=== PATIENT | male | born 1955 | race Caucasian/White ===

== ENCOUNTER 2021-02-08 09:41 | Outpatient (CLI) | payer BC, MEDICARE, SELFPAY ==
--- NOTE | 2021-02-08 10:00 | ECHO_ITS ---
Patient Info Name: Stevie Albarado Age: 66 years : 1955 Gender: Male Ht: 72 in Wt: 234 lbs BSA: 2.35 m2 HR: 83 bpm BP: 182 / 97 mmHg Heart Rhythm: Sinus Rhythm Technical Quality: Fair Exam Date: 02/08/2021 9:56 AM Exam Location: [facility] Patient Status: Outpatient Admit Date: 02/08/2021 Staff Ordering Physician: Con Hugo MD Avid Editor: Gloria Ramos RDCS Attending Provider: Con Hugo MD Referring Physician: Oanh SAMUEL; Exam Type: CA echo dop color flow w con Study Info Indications I27.0 - Primary pulmonary hypertension Complete two-dimensional, color flow and Doppler transthoracic echocardiogram is performed with contrast to opacify the left ventricle and to improve the deliniation of the left ventricle endocardial borders. Strain analysis performed. Contrast/Agitated Saline Contrast/Ag. Saline: Definity Amount: 3.00 ml New IV Access: Antecubital Space and Left Site Condition: No extravasation, Site dressing applied and IV removed History/Risk Factors Hypertension: Yes Dyslipidemia: No Congenital Heart Disease (CHD): No Peripheral Arterial Disease (PAD): No Myocardial Infarction (CA): No Chronic Lung Disease: No Obesity: Yes Renal Disease: No Coronary Artery Disease (CAD) No Congestive Heart Failure (CHF): No Cardiomyopathy/LV Systolic Dysfunction: No Date of Last Tobacco Use: 02/08/2021 Diabetes Mellitus: No COPD: On Meds Tobacco Use: Current - Every Day If Any Current, Tobacco Type: Cigarettes If Current - Every Day \T\ Cigarettes, Amount: Heavy Tobacco Use (>=10/day) Cerebrovascular Disease: No Family History: Coronary Artery Disease Deep Vein Thrombosis (DVT): None Frailty Scale (CSHA): 2: Well Cardiac Arrest: No Summary 1. Left ventricular chamber dimension is mildly enlarged. 2. Definity contrast administered improved wall motion interpretation. 3. Left ventricular systolic function is normal, estimated at 55-60%. 4. There is moderately increased left ventricular wall thickness. 5. The left ventricular diastolic function is grade I diastolic dysfunction. 6. E/e' 17 is elevated. 7. Global longitudinal strain is abnormal at -15.5%. 8. Left atrial chamber dimension is mildly enlarged. 9. There is mild mitral valve regurgitation. Recommendations * Smoking cessation counseling is recommended for this patient. Left Ventricle E/e' 17 is elevated. Definity contrast administered improved wall motion interpretation. Global longitudinal strain is abnormal at -15.5%. Left ventricular chamber dimension is mildly enlarged. Left ventricular systolic function is normal, estimated at 55-60%. There is moderately increased left ventricular wall thickness. The left ventricular diastolic function is grade I diastolic dysfunction. Right Ventricle Right ventricular chamber dimension is normal. Right ventricular systolic function is normal. Left Atria Left atrial chamber dimension is mildly enlarged. Right Atria Right atrial chamber dimension is normal. Aortic Valve The aortic valve is trileaflet. There is no aortic valve stenosis. There is no aortic valve regurgitation. Pulmonic Valve There is no pulmonic regurgitation. Mitral Valve There is no mitral valve stenosis. There is mild mitral valve regurgitation. Tricuspid Valve There is no tricuspid valve regurgitation.
== END 2021-02-08 09:42 | disposition home or self-care (01) ==
DX: I27.20 Pulmonary hypertension, unspecified (principal)
CPT/HCPCS: C8929

== ENCOUNTER 2021-04-07 08:33 | Emergency (ER) | payer BC, MEDICARE, SELFPAY ==
[2021-04-07 08:35] VITALS: BP 199/99; PULSE 99; RESP 20; TEMP 36.4; O2SAT 95
--- NOTE | 2021-04-07 08:47 | ED.GENADULT ---
HPI - General Adult General Chief complaint: Wound/Laceration Stated complaint: CUT LEG Source: patient Mode of arrival: ambulatory Limitations: no limitations History of Present Illness HPI narrative: Stevie is a 66M with a PMH of COPD that came to the ED with a laceration in his right lower extremity. He was cleaning out his pole barn when a piece of wood broke and fell on his leg just before arriving. He is unsure of his last tetanus. He has no other injuries or concerns. Related Data Home Medications Medication Instructions Recorded Confirmed [id number] 1 inh INHALATION DAILY 04/07/21 04/07/21 [Breztri Aerosphere] fluticasone propion-salmeterol 1 inh INHALATION BID 04/07/21 04/07/21 [Advair Diskus] montelukast 10 mg PO DAILY 04/07/21 04/07/21 roflumilast [Daliresp] 500 mcg PO DAILY 04/07/21 04/07/21 Allergies Allergy/AdvReac Type Severity Reaction Status Date / Time No Known Allergies Allergy Verified 04/07/21 09:06 Review of Systems Constitutional: Constitutional: Reports no additional constitutional complaints Eyes: Eyes: Reports no additional eye complaints ENT: Reports system reviewed and no additional complaints, except as documented Cardiovascular: Cardiovascular: Reports no additional cardiovascular complaints Respiratory: Respiratory: Reports no additional respiratory complaints Gastrointestinal: Gastrointestinal: Reports no additional gastrointestinal complaints Genitourinary: Genitourinary: Reports no additional male genitourinary complaints Musculoskeletal: Musculoskeletal: Reports no additional musculoskeletal complaints Integumentary/Breasts: Skin/Breast: Reports as per HPI Neurologic: Reports system reviewed and no additional complaints, except as documented Psychiatric: Psychiatric: Reports no additional psychiatric complaints Endocrine: Endocrine: Reports no additional endocrine complaints Hematologic/Lymphatic: Hematologic/Lymphatic: Reports no additional hematologic/lymphatic complaints Allergic/Immunologic: Allergic/Immunologic: Reports no additional allergic/immunologic complaints Exam Const: General: no acute distress and alert Orientation/consciousness: patient oriented x3 Limitations: No altered mental status HENMT: Head: normal to inspection Other: atraumatic Eyes: Conjunctivae: conjunctivae normal Pupils: Equal, round and reactive pupils present Neck: Neck: normal visual inspection Chest: Chest palpation & inspection: normal inspection of the chest Resp: Effort & Inspection: normal respiratory effort, not labored and not tachypneic Cardio: Rate: regular rate GI: Inspection: non-distended GI Palp: Yes Soft to palpation, No Tenderness to palpation present (GI) and No Guarding due to palpation present (GI) : Testes: Testes normal Back/Spine/Pelvis: Back: no CVA tenderness Skin: General skin exam: normal color Rashes: no rashes Neuro: General: patient oriented x3, moves all extremities and CN's II-XI intact bilaterally Extrem: General: normal to inspection Psych: Mental Status: mental status grossly normal Procedures Laceration Laceration 1: Date: 04/07/21 Site: lower extremity (left lower extremity ) Side (If applicable): left Size (cm): 4 Description: flap Depth: simple, single layer Local Anesthetic: lidocaine 1% and with epi Pre-repair: wound explored and irrigated ====== Skin Level ====== Skin layer closed with: nylon Size (cm): 3-0 Number of sutures: 7 Technique: simple, interrupted ====== Subcutaneous Layer ====== ====== Muscle Layer ====== ====== Tendon Layer ====== Discharge Plan Discharge Clinical Impression: Laceration Patient Disposition: Home, Self-Care Condition: Stable Instructions: Care For Your Stitches (ED) Additional Instructions: Please return for any new, concerning, or wors
[2021-04-07] MEDS: TETANUS,DIPHTHERIA,AC PERTUSSIS ADULT 0.5 ML (ADACEL) IM (08:59)
[2021-04-07 09:25] VITALS: RESP 17
== END 2021-04-07 09:25 | disposition home or self-care (01) ==
PROVIDERS: Emergency Provider Family Medicine
DX: S81.812A Laceration without foreign body, left lower leg, initial encounter (principal); W45.8XXA Other foreign body or object entering through skin, initial encounter
CPT/HCPCS: 12002; 90471; 90715; 99282

== ENCOUNTER 2021-06-01 11:23 | Outpatient (CLI) | payer BC, MEDICARE, SELFPAY ==
[2021-06-01 11:37] LABS: Basophils Absolute Auto 0.06 K/mm3 (0.00-0.10); Basophils Percent Auto 0.6 % (0.0-1.0); Eosinophils Absolute Auto 0.42 K/mm3 (0.02-0.50); Eosinophils Percent Auto 4.3 % (1.0-6.0); Hematocrit 44.3 % (37.0-46.0); Hemoglobin 15.3 g/dL (12.4-15.3); Immature Granulocyte Absolute 0.03 K/mm3 (0.00-0.00); Immature Granulocyte Percent A 0.3 % (0.0-0.0); Lymphocytes Absolute Auto 2.15 K/mm3 (1.10-4.50); Lymphocytes Percent Auto 22.1 % (18.0-42.0); Mean Corpuscular HGB Conc 34.5 g/dL (32.0-36.0); Mean Corpuscular Hemoglobin 32.5 pg (27.0-31.0); Mean Corpuscular Volume 94.1 fL (78.0-102.0); Mean Platelet Volume 8.1 fl (8.7-11.0); Monocytes Absolute Auto 0.97 K/mm3 (0.10-0.90); Neutrophils Absolute Auto 6.1 K/mm3 (1.7-7.2); Neutrophils Percent Auto 62.7 % (50.0-70.0); Platelet Count Result 299 K/mm3 (150-420); Red Blood Count 4.71 M/mm3 (4.70-6.10); Red Cell Distribution Width 13.3 % (11.6-14.4); White Blood Count 9.7 K/mm3 (4.8-10.8)
[2021-06-01 12:16] LABS: Alanine Aminotransferase 24 U/L (16-63); Albumin Level 3.6 g/dL (3.4-5.0); Alkaline Phosphatase 97 U/L (46-116); Anion Gap 11 mmol/L (8-16); Aspartate Amino Transferase 11 U/L (15-37); Bilirubin,Total 0.5 mg/dL (0.00-1.00); Blood Urea Nitrogen 13 mg/dL (7-18); Calcium 8.9 mg/dL (8.5-10.1); Carbon Dioxide 27 mmol/L (21-32); Chloride 102 mmol/L (98-108); Cholesterol 240 mg/dL (0-200); Estimated Glomerular Filt Rate > 60; Glucose 94 mg/dL (70-99); HDL Direct 46 mg/dL (40-60); LDL Cholesterol Calculated 169 mg/dL (<130); Osmolality Calculated 290 mOsm/kg (285-295); Potassium 4.2 mmol/L (3.5-5.1); Sodium 140 mmol/L (136-145); Total Protein 6.9 g/dL (6.4-8.2); Triglycerides 127 mg/dL (0-150)
[2021-06-01 12:27] LABS: Thyroid Stimulating Hormone Reflex 1.77 u/IU/mL (0.36-3.74)
== END 2021-06-01 11:24 | disposition home or self-care (01) ==
LOC: CHSLAB 11:27
PROVIDERS: PCP Family Medicine; Visit Provider Family Medicine
DX: I10 Essential (primary) hypertension (principal); E78.5 Hyperlipidemia, unspecified
CPT/HCPCS: 36415; 80053; 80061; 84443; 85025

== ENCOUNTER 2021-08-13 15:40 | Emergency (ER) | payer BC, MEDICARE, SELFPAY ==
[2021-08-13 15:55] VITALS: BP 178/81; PULSE 98; RESP 18; TEMP 36.3; O2SAT 95
--- NOTE | 2021-08-13 16:24 | ED.BACK ---
HPI - Back Pain/Injury General Chief Complaint: Extremity Problem,Nontraumatic Stated Complaint: back pain radiating to legs Source: patient and RN notes reviewed Mode of arrival: ambulatory Limitations: no limitations History of Present Illness HPI Narrative: Patient states not really having any pain in his back with pain in his left lateral lower leg. He says feels like there was some pain in his posterior thigh. He has had some back surgery in the past with rods and screws. He was doing some repetitive work at home a and seemed to flare up his back. MD elicited complaint: back pain Onset (ago): day(s) (2) Timing: intermittent Severity: moderate Quality: dull and aching Location: left lower back Radiation: left leg below the knee Exacerbating factors: movement and walking Relieving factors: other (sitting) Associated symptoms: parasthesias Work related injury: No Related Data Home Medications Medication Instructions Recorded Confirmed [id number] 1 inh INHALATION DAILY 04/07/21 06/01/21 [Breztri Aerosphere] fluticasone propion-salmeterol 1 inh INHALATION BID 04/07/21 06/01/21 [Advair Diskus] montelukast 10 mg PO DAILY 04/07/21 06/01/21 roflumilast [Daliresp] 500 mcg PO DAILY 04/07/21 06/01/21 ipratropium 0.5 mg-albuterol 3 mg 3 ml INHALATION Q6-8H PRN ml 04/10/21 06/01/21 (2.5 mg base)/3 mL nebulization soln Allergies Allergy/AdvReac Type Severity Reaction Status Date / Time No Known Allergies Allergy Verified 06/28/21 08:26 Review of Systems Review of Systems: All systems reviewed & are unremarkable except as noted in HPI and below PMFSH Past Medical History Medical History COPD (chronic obstructive pulmonary disease) Hypertension Left leg cellulitis Leg wound, left Nicotine addiction Pulmonary hypertension Surgical History Surgical History History of tonsillectomy Previous back surgery Rods and screws Family History Family History Father Heart disease Mother Lung cancer Social History Social History Smoking packs per day: 1 Smoking cigarettes per day: 20.0 Years smoked: 45 Smoking pack-years: 45.00 Smoking status: Current every day smoker Alcohol intake: current Alcohol use details: weekends Substance use: never Substance use type: does not use Additional living arrangements comments: Exam Const: General: healthy appearing, no acute distress and alert Nutritional Appearance: well nourished Orientation/consciousness: patient oriented x3 HENMT: Head: normal to inspection Ears: external ears normal Eyes: Conjunctivae: conjunctivae normal Pupils: Equal, round and reactive pupils present EOM: EOMs intact bilaterally Neck: Neck: normal visual inspection Resp: Effort & Inspection: normal respiratory effort Auscultation: rhonchi throughout (mild) Cardio: Rate: regular rate Rhythm: regular rhythm GI: GI Palp: Yes Soft to palpation and No Tenderness to palpation present (GI) Auscultation: normal bowel sounds Back/Spine/Pelvis: Cervical Spine: cervical ROM normal Thoracic/Lumbar Spine: straight leg raise negative bilaterally, paraspinal muscle tenderness on the left ( Reproduces the pain and tingling and has left lower lateral leg) in the lower lumbar and thoraco-lumbar ROM limited with forward flexion Neuro: General: patient oriented x3, moves all extremities, no meningeal signs, no focal motor deficits and CN's II-XI intact bilaterally Speech: normal speech Gait exam (Neuro): Normal gait present Motor exam (neuro): 5/5 motor strength present throughout Deep tendon reflexes (DTR's): Right patellar reflex intensity grade: 2+, Left patellar reflex intensity grade: 2+, Right ankle reflex intensity grade:
[2021-08-13] MEDS: KETOROLAC (*BKC) 60 MG/2 ML VIAL IM (16:42)
[2021-08-13] MEDS: ORPHENADRINE CITRATE 30 MG/ML 2 ML VIAL 60 MG IM (16:42)
== END 2021-08-13 17:06 | disposition home or self-care (01) ==
PROVIDERS: Emergency Provider Emergency Medicine; PCP Family Medicine
DX: M54.30 Sciatica, unspecified side (principal); M79.605 Pain in left leg
CPT/HCPCS: 96372; 99283; 99284; J1885; J2360

== ENCOUNTER 2022-06-15 12:26 | Outpatient (CLI) | payer BC, MEDICARE, SELFPAY ==
--- NOTE | ~2022-06-15 | XR_ITS ---
XR chest 2V 06/15/2022 12:45 Indication: Dyspnea. COPD. Procedure: PA and lateral views of the chest Comparison: No prior studies for comparison. Findings: Left basilar atelectasis/scarring. Blunting of the left lateral costophrenic recess which m ay represent pleural thickening or small effusion. The lungs are hyperinflated which is consistent wi th, but not diagnostic of chronic obstructive pulmonary disease. Impression: 1: Left basilar atelectasis/scarring. 2: Possible small left effusion versus pleural thickening. Reviewed, dictated and finalized at location A. Impression: 1: Left basilar atelectasis/scarring. 2: Possible small left effusion versus pleural thickening.
== END 2022-06-15 12:27 | disposition home or self-care (01) ==
LOC: CHSIMG 12:31
PROVIDERS: PCP Internal Medicine Pulmonary Disease; Visit Provider Internal Medicine Pulmonary Disease
DX: J44.9 Chronic obstructive pulmonary disease, unspecified (principal)
CPT/HCPCS: 71046

== ENCOUNTER 2022-08-15 12:52 | Outpatient (CLI) | payer MEDICARE, OTHER, SELFPAY ==
--- NOTE | ~2022-08-15 | CT_ITS ---
EXAMINATION: CTA chest PE protocol DATE: 08/15/2022 16:42 INDICATION: Shortness of breath. TECHNIQUE: Computed tomography angiography (CTA) of the chest was performed with 100 mL Omnipaque-350 intravenous contrast timed to evaluate the pulmonary arteries. Coronal maximum intensity projection 3D-reconstructions were created by the technologist. Automated exposure control and iterative reconst ruction technique were employed. The dose-length product was 500.78 mGy-cm. COMPARISON: Chest CT 06/17/2018 FINDINGS: There is mild emphysema. There are tree-in-bud opacities and mild groundglass opacities in right lower lobe, right upper lobe, and apicoposterior segment left upper lobe. There are extensive a irspace and groundglass opacities and centrilobular and tree-in-bud nodules in left lower lobe. There is a small left pleural effusion with pleural thickening. The heart size is normal. There are mariee ry artery calcifications. No pericardial effusion. There is no pulmonary embolus. There are chronic l ow-attenuation masses in the adrenal glands measuring up to 2.0 cm on the left, consistent with adeno mas. 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 There are bridging endplate osteophytes at multiple levels in the spine, consistent with diffuse idiopathic skeletal hyperostosis (DISH). IMPRESSION: 1. No pulmonary embolus. 2. Bilateral pneumonia predominantly involving left lower lobe. 3. Small left pleural effusion. 4. Mild emphysema. Reviewed, dictated and finalized at location A. MBLY DEPARTMENT SUPERVISOR
--- NOTE | ~2022-08-15 | XR_ITS ---
EXAMINATION: XR chest 2V Exam Date/Time: 08/15/2022 13:12 SPEECH LANGUAGE THERAPIST HISTORY: COVID+ 5 days ago, increased SOB x2 days, hx COPD Comparison: 06/15/2022. RESULT: Lines, tubes, and devices: None. Lungs and pleura: Segmental left posterior lower lobe airspace opacity. Chronic linear left basilar scarring and mild bilateral costophrenic angle blunting. Emphysematous change. Cardiomediastinal silhouette: Stable. Other: No acute osseous or upper abdominal finding. IMPRESSION: Segmental airspace disease in the left posterior lower lobe concerning for pneumonia. Atelectasis and pulmonary infarct could appear similarly in the acute setting. Small bilateral effusions. Multiple attempts were made to contact the office beginning at approximately 1:50 PM on 08/15/2022, all calls were forwarded to [email or web address]. A message was left with a manager medical writing. Radiology staff at [facility] assisted and making contact. Results reported to LEX Limon at 2:50 PM on 08/15/2022. Reviewed, dictated and finalized at location K. CH LANGUAGE THERAPIST IMPRESSION: Segmental airspace disease in the left posterior lower lobe concerning for pneu monia. Atelectasis and pulmonary infarct could appear similarly in the acute se tting. Small bilateral effusions. Multiple attempts were made to contact the office beginning at approximately 1: 50 PM on 08/15/2022, all calls were forwarded to [email or web address]. A message was left wi th a manager medical writing. Radiology staff at the [facility] a ssisted and making contact. Results reported to Aria Burt APRN at 2:50 PM on 08/15/2022.
[2022-08-15 13:35] LABS: Troponin I 7.5 ng/L (0.00-60.4)
[2022-08-15 13:37] LABS: CRP 17.1 mg/dL (0.0-0.9)
[2022-08-15 13:39] LABS: Strep Group A RT-PCR NOT DETECTED (Negative)
[2022-08-15 14:17] LABS: Influenza A QL RT-PCR Negative (Negative); Influenza B QL RT-PCR Negative (Negative); SARS-CoV-2 RNA PCR Positive (Negative)
[2022-08-15 16:26] LABS: Estimated Glomerular Filt Rate > 60
== END 2022-08-15 12:53 | disposition home or self-care (01) ==
PROVIDERS: PCP Nurse Practitioner Family; Visit Provider Nurse Practitioner Family
DX: R05.9 Cough, unspecified (principal); B96.89 Other specified bacterial agents as the cause of diseases classified elsewhere; J01.90 Acute sinusitis, unspecified; U07.1 COVID-19; R06.02 Shortness of breath; J18.9 Pneumonia, unspecified organism; J90 Pleural effusion, not elsewhere classified; J43.9 Emphysema, unspecified; R91.8 Other nonspecific abnormal finding of lung field
CPT/HCPCS: 36415; 71046; 71275; 84484; 85380; 86140; 87636; 87651; Q9967

== ENCOUNTER 2022-08-16 10:12 | Outpatient (CLI) | payer MEDICARE, OTHER, SELFPAY ==
[2022-08-16 10:29] LABS: Add Urine Microscopic? YES; Appearance Urine Clear (Clear); Bilirubin Urine Negative (Negative); Blood Urine Trace-Intact (Negative); Color Urine Yellow (Yellow); Glucose Urine UA Negative (Negative); Ketones Urine Negative (Negative); Leukocyte Esterase Ur Negative LEU/UL (Negative); Nitrate Urine Negative (Negative); Protein Urine Trace (Negative); Specific Grav Ur 1.015 (1.010-1.020); Urobilinogen Urine 0.2 mg/dL (0.2-1.0)
[2022-08-16 10:38] LABS: Bacteria Urine Trace /hpf; RBC Urine 0-2 /hpf (0-2); WBC Urine None seen /hpf (0-3)
== END 2022-08-16 10:13 | disposition home or self-care (01) ==
LOC: CHSLAB 10:15
PROVIDERS: PCP Family Medicine; Visit Provider Nurse Practitioner Family
DX: U07.1 COVID-19 (principal); I10 Essential (primary) hypertension
CPT/HCPCS: 81001

== ENCOUNTER 2022-10-23 08:07 | Outpatient (CLI) | payer MEDICARE, OTHER, SELFPAY ==
--- NOTE | ~2022-10-23 | XR_ITS ---
Left Knee Technique: AP, lateral, and sunrise views were obtained. Clinical History: Pain Findings: No fracture or dislocation is seen. Osseous alignment is anatomic. Mild tricompartmental de generative changes present, including tricompartment spurring as well as a probable osteophyte at the lateral femoral condyle region. Soft tissues are unremarkable. No joint effusion is seen. Impression: Mild tricompartmental degenerative change, as detailed above. Reviewed, dictated and finalized at location M. Impression: Mild tricompartmental degenerative change, as detailed above.
== END 2022-10-23 08:08 | disposition home or self-care (01) ==
LOC: CHSIMG 08:09
PROVIDERS: PCP Family Medicine; Visit Provider Orthopaedic Surgery
DX: M25.562 Pain in left knee (principal)
CPT/HCPCS: 73564

== ENCOUNTER 2023-02-26 08:09 | Outpatient (CLI) | payer MEDICARE, OTHER, SELFPAY ==
--- NOTE | ~2023-02-26 | US_ITS ---
EXAMINATION: US venous doppler [facility] DATE: 02/26/2023 09:07 INDICATION: Peripheral vascular disease, unspecified. TECHNIQUE: Grayscale ultrasound images without and with compression and Doppler ultrasound images of the left lower extremity veins were obtained. COMPARISON: None. FINDINGS: The visualized portions of left common femoral vein, profunda (deep) femoral vein, femoral vein, popl iteal vein, peroneal veins, posterior tibial veins, and greater saphenous vein outflow are patent. IMPRESSION: 1. No deep venous thrombosis. Reviewed, dictated and finalized at location A.
--- NOTE | ~2023-02-26 | US_ITS ---
EXAMINATION: US arterial duplex LE DATE: 02/26/2023 09:07 INDICATION: Peripheral vascular disease, unspecified. TECHNIQUE: Multiple grayscale and Doppler ultrasound images of the left lower limb were obtained. COMPARISON: None FINDINGS: Peak systolic velocity is 64 cm/s in left common femoral artery and 112 cm/s in left profun da femoral artery. There is total occlusion of proximal and mid left superficial femoral artery. Peak systolic velocity is 31 cm/s in distal left superficial femoral artery, 33 cm/s in popliteal artery, 28 cm/s in proximal posterior tibial artery, 15 cm/s in mid posterior tibial artery, 22 cm/s in ante rior tibial artery, and 18 cm/s in peroneal artery. IMPRESSION: 1. Total occlusion of left superficial femoral artery with distal reconstitution. Reviewed, dictated and finalized at location A. IMPRESSION: 1. Total occlusion of left superficial femoral artery with distal reconstitutio n.
[2023-02-26 08:22] LABS: Hematocrit 38.8 % (37.0-46.0); Hemoglobin 13.3 g/dL (12.4-15.3); Mean Corpuscular HGB Conc 34.3 g/dL (32.0-36.0); Mean Corpuscular Hemoglobin 32.8 pg (27.0-31.0); Mean Corpuscular Volume 95.6 fL (78.0-102.0); Mean Platelet Volume 7.9 fl (8.7-11.0); Platelet Count Result 337 K/mm3 (150-420); Red Blood Count 4.06 M/mm3 (4.70-6.10); White Blood Count 7.2 K/mm3 (4.8-10.8)
[2023-02-26 09:00] LABS: Alanine Aminotransferase 14 U/L (16-63); Albumin Level 3.8 g/dL (3.4-5.0); Alkaline Phosphatase 98 U/L (46-116); Anion Gap 7 mmol/L (8-16); Aspartate Amino Transferase 11 U/L (15-37); Bilirubin,Total 0.3 mg/dL (0.00-1.00); Blood Urea Nitrogen 24 mg/dL (7-18); Calcium 9.3 mg/dL (8.5-10.1); Carbon Dioxide 29 mmol/L (21-32); Chloride 98 mmol/L (98-108); Cholesterol 233 mg/dL (0-200); Estimated Glomerular Filt Rate > 60; Glucose 100 mg/dL (70-99); HDL Direct 56 mg/dL (40-60); LDL Cholesterol Calculated 161 mg/dL (<130); Osmolality Calculated 282 mOsm/kg (285-295); Potassium 5.2 mmol/L (3.5-5.1); Sodium 134 mmol/L (136-145); Thyroid Stimulating Hormone 1.89 uIU/mL (0.36-3.74); Total Protein 6.7 g/dL (6.4-8.2); Triglycerides 78 mg/dL (0-150)
[2023-02-28 13:05] LABS: Vitamin D 25 Hydroxy 27 ng/mL (30-100)
== END 2023-02-26 08:10 | disposition home or self-care (01) ==
LOC: CHSIMG 08:10
PROVIDERS: PCP Nurse Practitioner Family; Visit Provider Nurse Practitioner Family
DX: I73.9 Peripheral vascular disease, unspecified (principal); R20.2 Paresthesia of skin; R20.0 Anesthesia of skin; R06.02 Shortness of breath; J44.9 Chronic obstructive pulmonary disease, unspecified; I10 Essential (primary) hypertension; R53.83 Other fatigue; Z79.899 Other long term (current) drug therapy; I77.1 Stricture of artery
CPT/HCPCS: 36415; 80053; 80061; 82306; 84443; 85027; 93926; 93971

== ENCOUNTER 2023-03-07 07:46 | Outpatient (CLI) | payer MEDICARE, OTHER, SELFPAY ==
--- NOTE | ~2023-03-07 | US_ITS ---
US arterial ankle brachial ind INDICATION: Peripheral vascular disease TECHNIQUE: Segmental pressures and plethysmographic and Doppler waveforms of the brachial and lower e xtremity arteries were obtained. COMPARISON: None. FINDINGS: Right and left brachial artery pressures of 138 mm Hg and 140 mm Hg, respectively, are concordant (no rmal difference <= 30 mmHg). The right ankle-brachial index (CHRISTINA) is 0.53 (normal >= 0.9-1.0). The right great toe-brachial index (TBI) is 0.0 (normal >= 0.60). The left CHRISTINA is 0.54. The left TBI is 0.17. IMPRESSION: 1. Diminished bilateral ankle and toe brachial indices, consistent with moderate-severe peripheral ar terial disease. Reviewed, dictated and finalized at location A. IMPRESSION: 1. Diminished bilateral ankle and toe brachial indices, consistent with moderat e-severe peripheral arterial disease.
== END 2023-03-07 07:47 | disposition home or self-care (01) ==
LOC: CHSIMG 07:48
PROVIDERS: PCP Nurse Practitioner Family; Visit Provider Nurse Practitioner Family
DX: I73.9 Peripheral vascular disease, unspecified (principal)
CPT/HCPCS: 93922

== ENCOUNTER 2023-07-17 09:14 | Outpatient (CLI) | payer MEDICARE, SELFPAY ==
[2023-07-17 09:58] LABS: Cholesterol 163 mg/dL (0-200); HDL Direct 86 mg/dL (40-60); LDL Cholesterol Calculated 71 mg/dL (<130); Triglycerides 29 mg/dL (0-150)
[2023-07-19 12:52] LABS: Vitamin D 25 Hydroxy 32 ng/mL (30-100)
== END 2023-07-17 09:15 | disposition home or self-care (01) ==
LOC: CHSLAB 09:15
PROVIDERS: PCP Nurse Practitioner Family; Visit Provider Nurse Practitioner Family
DX: E55.9 Vitamin D deficiency, unspecified (principal); I70.209 Unspecified atherosclerosis of native arteries of extremities, unspecified extremity
CPT/HCPCS: 36415; 80061; 82306

== ENCOUNTER 2023-08-02 09:29 | Outpatient (RCR) | payer MEDICARE, OTHER, SELFPAY ==
--- NOTE | 2023-08-02 07:48 | OPREHPOC ---
Outpatient Therapy Plan of Care This is a Multidisciplinary Plan of Care that may contain components documented by all disciplines (PT, OT, and ST.) PT Problem 1 PT Problem #1 Knowledge Deficit PT Goal 1 Goal 1. independent and compliant with HEP Target Visit 3 PT Problem 2 PT Problem #2 Impaired Strength PT Goal 1 Goal 1. improve bilateral hip abduction to 5/5 Target Visit 6 PT Problem 3 PT Problem #3 Impaired Range of Motion PT Goal 1 Goal 1. improve L hip active flexion to 90 degrees or better 2. improve L hip active ER to 35 degrees or better 3. improve L hip active IR to 0 degrees Target Visit 6 PT Problem 4 PT Problem #4 Impaired Functional Mobil PT Goal 1 Goal 1. LEFS to display less than 40% functional deficits Target Visit 6
--- NOTE | 2023-08-02 07:48 | PTOPEVAL1 ---
Assessment and note entered by JT File, PT Evaluation Information Assessment Status Evaluation Diagnosis L knee pain, L hip pain Onset 07/30/23 Subjective Information patient reports he has pain in his whole left leg. he reports the pain surrounds his hip, his knee, and down in his ankle/foot at times. he reports one day he was out hunting and stepped over a log and began limping quite a bit. however, he reports golf does not bother him. he reports he did have xrays of the L knee. he reports he has not yet had pain in the L hip. he reports is coming to tehrapy first to see if he cane get any relief. he reports he still tries to get all of his work around the house down, but he has to take his time . he reports he has had 3 cortisone injections to the L knee. he reports he has had 3 back surgeries in the past. Reported Pain Level Pain Score 1,3: Self Report Assessment PT Clinical Summary mr. dodson is a 68 yo man who presents to skilled PT services for evaluation and treatment of L knee and hip pain. he displays decreased bilateral knee extension arom, and decreased bilateral hip rom (worse on the L). combined with his special testing, jt end feel, lack of hip mobility, and groin pain, patient most likely suffers from L worse than R hip OA. he would benefit from continued skilled PT to improve his strength and try and improve some flexibility/rom prior to having a CASSY of the L hip. Plan of Care Interventions Electrical Stimulation,Gait Training,Hot Pack/Cold Pack,Manual Therapy,Neuro Re-education,Patient/ Caregiver Educati,Therapeutic Activities, Therapeutic Exercise PT Services Indicated Yes Treatment Frequency and 2x weekly for 6 visits Duration These treatments will address the objective and functional deficits as defined above. The patient will be advanced safely and appropriately in order for the patient to progress towards his/her prior level of function. Additional exercises will be introduced and as well as a comprehensive home exercise program upon discharge, if needed, ?to ensure carryover of functional gains achieved in the clinic. This treatment plan has been reviewed and agreement upon by the patient.
== END 2023-08-02 20:00 | disposition home or self-care (01) ==
LOC: CHSPT 09:29
PROVIDERS: Visit Provider Family Medicine Sports Medicine
DX: M25.562 Pain in left knee (principal); M25.552 Pain in left hip; M16.12 Unilateral primary osteoarthritis, left hip; M17.12 Unilateral primary osteoarthritis, left knee; G89.29 Other chronic pain
CPT/HCPCS: 97110; 97161

== ENCOUNTER 2024-07-07 10:19 | Outpatient (CLI) | payer MEDICARE, SELFPAY ==
[2024-07-07 11:13] LABS: Alanine Aminotransferase 21 U/L (16-63); Albumin Level 3.5 g/dL (3.4-5.0); Alkaline Phosphatase 95 U/L (46-116); Anion Gap 6 mmol/L (4-12); Aspartate Amino Transferase 17 U/L (15-37); Bilirubin,Total 0.3 mg/dL (0.00-1.00); Blood Urea Nitrogen 17 mg/dL (7-18); Calcium 9.2 mg/dL (8.5-10.1); Carbon Dioxide 28 mmol/L (21-32); Chloride 106 mmol/L (98-108); Cholesterol 124 mg/dL (0-200); Estimated Glomerular Filt Rate 59; Glucose 91 mg/dL (70-99); HDL Direct 61 mg/dL (40-60); LDL Cholesterol Calculated 56 mg/dL (<130); Osmolality Calculated 291 mOsm/kg (285-295); Potassium 4.7 mmol/L (3.5-5.1); Sodium 140 mmol/L (136-145); Total Protein 6.4 g/dL (6.4-8.2); Triglycerides 33 mg/dL (0-150)
[2024-07-13 13:50] LABS: Hemoglobin A1C 5.7 % (<5.7)
[2024-07-13 13:56] LABS: Thyroid Stimulating Hormone Reflex 0.89 u/IU/mL (0.36-3.74)
== END 2024-07-07 10:20 | disposition home or self-care (01) ==
PROVIDERS: PCP Family Medicine; Visit Provider Nurse Practitioner Family
DX: I70.209 Unspecified atherosclerosis of native arteries of extremities, unspecified extremity (principal); I10 Essential (primary) hypertension; M10.9 Gout, unspecified; E78.5 Hyperlipidemia, unspecified
CPT/HCPCS: 36415; 80053; 80061; 83036; 84443; 84550

== ENCOUNTER 2024-12-15 14:46 | Outpatient (CLI) | payer MEDICARE, SELFPAY ==
--- OUTSIDE RECORDS SUMMARY | 2024-12-15 14:54 | XMS_ITS | Referral Summary ---
Author Organization [facility] [address] Address [address] [place] [address] Care Team Providers Care Cotton Classer Aide Name Role Phone Kobi Huntley DO Primary Care Provider Jose Carlos Saldana MD Unavailable [phone] Allergies No known active allergies Medications atorvastatin (LIPITOR) 80 mg tablet Take 1 tablet (80 mg total) by mouth nightly at bedtime. 06/10/20 23 Active hydroCHLOROthiazi de (MICROZIDE) 12.5 mg capsule Take 1 capsule (12.5 mg total) by mouth 2 (two) times a day Active lisinopriL (PRINIVIL,ZESTRIL ) 40 mg tablet Take 1 tablet (40 mg total) by mouth daily 07/01/20 23 Active budesonide (PULMICORT) 0.5 mg/2 mL nebulizer solution Take 2 mL (0.5 mg total) by nebulization 2 (two) times a day Active Combivent Respimat 20-100 mcg/actuation inhaler Inhale 1 puff 4 (four) times a day Active Breztri Aerosphere 160-9-4.8 mcg/actuation HFA aerosol inhaler 1 puff 2 (two) times a day Active ipratropium-albut Siri (DUO-NEB) 0.5-2.5 mg/3 mL nebulizer solutionIndicatio ns:Chronic Obstructive Pulmonary Disease with Bronchospasms Take by nebulization 3 (three) times a day as needed for wheezing Active aspirin (Ecotrin) 325 mg enteric coated tabletIndications :prevention of thrombosis Take 1 tablet (325 mg total) by mouth daily 42 tablet 11/11/19 24 Active celecoxib (CeleBREX) 200 mg capsuleIndication s:Postoperative Acute Pain Take 1 capsule (200 mg total) by mouth 2 (two) times a day 84 capsule 11/11/19 24 Active ondansetron (ZOFRAN) 8 mg tabletIndications :Prevention of Post-Operative Nausea and Vomiting Take 1 tablet (8 mg total) by mouth every 8 (eight) hours as needed for nausea or vomiting 20 tablet 2 11/11/19 24 Active Additional Information Patient not taking.Reported on 01/14/2024 senna-docusate (PERICOLACE) 8.6-50 mg Take 1 tablet by mouth 2 (two) times a day as needed for constipation 60 tablet 2 11/11/19 24 Active oxyCODONE-acetami nophen (PERCOCET) 5-325 mg per tabletIndications :Pain Take 1-2 tablets by mouth every 4 (four) hours as needed for pain 40 tablet 11/11/19 24 Active Additional Information Patient not taking.Reported on 01/14/2024 Active Problems Problem Noted Date Diagnosed Date Primary osteoarthritis of left hip 11/04/2023 Centrilobular emphysema 02/01/2021 JESSE (obstructive sleep apnea) 02/01/2021 Pulmonary HTN 02/01/2021 Social History Tobacco Use Types Packs/Day Years Used Date Smoking Tobacco: Never Smokeless Tobacco: Never Tobacco Cessation:Counseling Given: Not Answered AUDIT-C Answer Date Recorded Frequency of Alcohol Consumption Not on file 11/11/2023 Q2: How many drinks containi ng alcohol do you have on a typical day when you are drinking? Patient does not drink Q3: How often do you have si x or more drinks on one occasion? Never 11/11/2023 Personal Safety Answer Date Recorded Have you ever been in or are you currently in a harmful physical or emotional relationship or is someone making you feel afraid or unsafe? Denies 11/11/2023 Sex and Gender Information Value Date Recorded Sex Assigned at Not on file Legal Sex Male 4:38 PM OCULARIST Gender Identity Not on file Sexual Orientation Not on file Last Filed Vital Signs Vital Sign Reading Time Taken Comments Blood Pressure 139/78 01/14/2024 3:31 PM CDT Pulse 75 01/14/2024 3:31 PM CDT Temperature 36.7 C (98 F) 11/11/2023 1:30 PM CDT Respiratory Rate 16 11/11/2023 1:30 PM CDT Oxygen Saturation 96% 11/11/2023 1:30 PM CDT Inhaled Oxygen Concentration - - Weight 92.1 kg (203 lb) 01/14/2024 3:31 PM CDT Height 181.6 cm (5' 11.5 ) 01/14/2024 3:31 PM CD T Body Mass Index 27.92 01/14/2024 3:31 PM CDT Plan of Treatment Not on file Medical Devices Implanted Type Area Glass Installer Device Identifier Shelf Expiration Date Model / Serial / Lot Depuy Orthopa[employer] Inc [place] 58mm Sector Hip Shell Acetabular Gription Sterile Latex Free [id number] - [id number] Implanted:Qty: 1 on 11/11/2023 by Jose Carlos Saldana MD at [facility] Left: Hip Depuy [employer]opaed[employer] Inc 09/11/2033 [id number] / / [id number] Depuy [employer] [place] 58mm 36mm Hip Neutral Liner Acetabular Altrx Sterile Latex Free [id number] - [id number] Implanted:Qty: 1 on 11/11/2023 by Jose Carlos Saldana MD at [facility] Left: Hip Depuy Orthopaed[employer] Inc 09/11/2028 [id number] / / [id number] Depuy [employer] Inc Actis Collar Hip 9 High Offset Stem Femoral [id number] - [id number] Implanted:Qty: 1 on 11/11/2023 by Jose Carlos Saldana MD at [facility] Left: Hip Depuy [employer] Inc 08/11/2033 [id number] / / [id number] Depuy [employer] Inc Articul/Shashi 36mm Cementless Hip +8.5mm /14 Taper Head Femoral Latex Free 1365-36330 - [id number] Implanted:Qty: 1 on 11/11/2023 by Jose Carlos Saldana MD at [facility] Left: Hip Depuy [employer] Inc 08/11/2028 [id number] / / [id number] Insurance [place] [address] Advance Directives For more information, please contact: [phone] * Full Code (Latest Code Status on File) Date Activated Date Inactivated Comments 11/11/2023 11:04 AM 11/11/2023 6:25 PM Care Teams Cotton Classer Aide Relationship Specialty Start Date End Date Kobi Huntley DO [address] [place] [address] PCP - General Family Medicine 07/09/23 Jose Carlos Saldana MD [address] [place] [address] [place] [address] Surgeon Orthopedic Surgery 11/11/23
--- OUTSIDE RECORDS SUMMARY | 2024-12-15 14:54 | XMS_ITS | Clinical Summary ---
Author Organization [facility] Address [address] [place] [address] Phone Care Team Providers Care Green Building Architect Name Role Phone Provider, None Primary Care Provider Unavailabl e Allergies No known active allergies Medications fluticasone (FLONASE) 50 MCG/ACT Suspension 1-2 Sprays by Nasal route daily. Use in each nostril as directed. Active Revefenacin (Yupelri) 175 MCG/3ML Solution take by inhalation. Active albuterol 108 (90 Base) MCG/ACT Aerosol Solution 1 Active roflumilast (Daliresp) 500 MCG Tablet Take 1 Tablet by mouth daily. 30 Tablet 5 1 Active Additional Information Patient not taking.Reported on 01/22/2022 roflumilast (Daliresp) 500 MCG Tablet Take 1 Tablet by mouth daily. 30 Tablet 5 1 Active Additional Information Patient not taking.Reported on 01/22/2022 lisinopril (PRINIVIL, ZESTRIL) 20 MG Tablet Take 20 mg by mouth daily. Active hydroCHLOROthia zide (MICROZIDE) 12.5 MG Capsule Take 12.5 mg by mouth 2 times daily. Active Budeson-Glycopy rrol-Formoterol (Breztri Aerosphere) 160-9-4.8 MCG/ACT Aerosol take 2 Puffs by inhalation 2 times daily. 10.7 g 5 2 Active predniSONE (DELTASONE) 10 MG TabletIndicatio ns:Centrilobula r emphysema (HCC) Take 1 Tablet by mouth daily. 10 Tablet 3 2 Active ipratropium-alb uterol (Combivent Respimat) 20-100 MCG/ACT Aerosol Solution take 1 Puff by inhalation every 6 hours as needed for Wheezing. 4 g 5 2 Active montelukast (Singulair) 10 MG Tablet Take 1 Tablet by mouth every evening. 90 Tablet 1 2 Active Formoterol Fumarate (Perforomist) 20 MCG/2ML Nebulizer Soln take 2 mL by inhalation 2 times daily. 120 mL 5 3 Active budesonide (PULMICORT) 0.5 MG/2ML Suspension INHALE ONE VIAL TWICE A DAY 120 mL 5 3 Active ipratropium-alb uterol (DUO-NEB) 0.5-2.5 (3) MG/3ML Solution USE ONE VIAL FOUR TIMES A DAY 360 mL 5 3 Active Active Problems Problem Noted Date Diagnosed Date Centrilobular emphysema 02/01/2021 Pulmonary HTN 02/01/2021 JESSE (obstructive sleep apnea) 02/01/2021 Social History Tobacco Use Types Packs/Day Years Used Date Smoking Tobacco: Every Day Cigarettes 1 50 Smokeless Tobacco: Never Tobacco Cessation:Ready to Q uit: Yes; Counseling Given: No Alcohol Use Standard Drinks/Week Comments Yes 0 (1 standard drink = 0.6 oz pur e alcohol) rarely Sexually Active Control Partners Comments Yes Female Sex and Gender Information Value Date Recorded Sex Assigned at Not on file Legal Sex Male 11:15 PM CDT Gender Identity Not on file Sexual Orientation Not on file Last Filed Vital Signs Vital Sign Reading Time Taken Comments Blood Pressure 122/70 01/22/2022 10:18 AM CDT Pulse 80 01/22/2022 10:18 AM CDT Temperature 37.1 C (98.7 F) 01/22/2022 10:18 AM CDT Respiratory Rate 16 01/22/2022 10:18 AM CDT Oxygen Saturation 97% 01/22/2022 10:18 AM CDT Inhaled Oxygen Concentration - - Weight 97.7 kg (215 lb 6.4 oz) 01/22/2022 10:18 AM CDT Height 180.3 cm (5' 11 ) 01/22/2022 10:18 AM CDT Body Mass Index 30.04 01/22/2022 10:18 AM CDT Plan of Treatment Health Maintenance Due Date Last Done Comments Hepatitis C Virus (HCV) Screening 1955 Colonoscopy 01/28/2001 Colorectal Cancer Screening 01/28/2001 Cologuard 01/28/2006 Immunochemical Fecal Occult Blood 01/28/2006 Zoster Immunization (1 of 2) 01/28/2006 Respiratory Syncytial Virus (RSV) Immunization (Adult) (1 - Risk 60-74 years 1-dose series) 2016 Pneumococcal Immunization (5 0+ years) (2 of 2 - PPSV23) 05/03/2020 03/08/2020 Influenza Immunization (#1) 2024 SARS-COV-2 Immunization ( - season) 2024 Pneumococcal Immunization Combined Discontinued 2019 DTaP/Tdap/Td Immunization Discontinued 04/07/2021 TdaP Immunization Completed 04/07/2021 Hepatitis B Immunization Aged Out No longer eligible based on patient's age to complete this topic Meningococcal Immunization (ACWY) Aged Out No longer eligible based on patient's age to complete this topic Rotavirus Immunization Aged Out No lo nger eligible based on patient's age to complete this topic Insurance MEDICARE Care Teams Green Building Architect Relationship Specialty Start Date End Date Provider, None [place] PCP - General 01/24/21
--- OUTSIDE RECORDS SUMMARY | 2024-12-15 14:54 | XMS_ITS | Clinical Summary ---
Author Organization [facility] Address [address] [place] [address] Care Team Providers Care Electrical Sign Servicer Name Role Phone Unavailable Primary Care Provider Unavailabl e Social History Tobacco Use Types Packs/Day Years Used Date Smoking Tobacco: Never Assessed Sex and Gender Information Value Date Recorded Sex Assigned at Not on file Legal Sex Male 9:04 AM CDT Gender Identity Not on file Sexual Orientation Not on file Plan of Treatment Health Maintenance Due Date Last Done Comments Colorectal Cancer Screening Colonoscopy (10 Years) 1955 Hepatitis C 01/28/1974 DTaP, Tdap and Td Vaccines ( 1 - Tdap) 01/28/1975 Pneumococcal Vaccine: 50+ Ye ars (1 of 1 - PCV) 01/28/2006 Zoster Vaccines (1 of 2) 01/28/2006 COVID-19 Vaccine ( - 2023-2 5 season) 2024 RSV Immunization or 60+ Years (1 - 1-dose 75+ series) 01/28/2031 Meningococcal B Vaccine Aged Out No l onger eligible based on patient's age to complete this topic Meningococcal Vaccine Aged Out No kay sharon eligible based on patient's age to complete this topic RSV Immunizations Under 20 Months Aged Out No longer eligible based on patient's age to complete this topic
--- OUTSIDE RECORDS SUMMARY | 2024-12-15 14:54 | XMS_ITS | Encounter Summary ---
Author Organization [facility] Address 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
--- OUTSIDE RECORDS SUMMARY | 2024-12-15 14:54 | XMS_ITS | Clinical Summary ---
Author Organization [facility] Address [address] Attn: Epic Prelude ADT DANY BARCENAS [address] Care Team Providers Care Sr. Unix System Administrator Name Role Phone Unavailable Primary Care Provider Unavailabl e Social History Tobacco Use Types Packs/Day Years Used Date Smoking Tobacco: Never Assessed Sex and Gender Information Value Date Recorded Sex Assigned at Not on file Legal Sex Male 4:49 AM DISTRICT MEDICAL EXAMINER Gender Identity Not on file Sexual Orientation Not on file Plan of Treatment Health Maintenance Due Date Last Done Comments DTAP/TDAP/TD VACCINES (1 - Tdap) 01/28/1975 COLORECTAL SCREENING 01/28/2001 Colorectal Cancer Screening 01/28/2001 FIT-DNA Q 3 years 01/28/2001 FIT/FOBT Q 1 year 01/28/2001 Flex Sig/CT Colonography Q 5 years 01/28/2001 PNEUMOCOCCAL VACCINE 50+ YEARS (1 of 1 - PCV) 01/29/20 ZOSTER VACCINE (1 of 2) 01/28/2006 INFLUENZA VACCINE (#1) 2024 RSV VACCINE (60+ or ) (1 - 1-dose 75+ series) 01/28/2031
--- OUTSIDE RECORDS SUMMARY | 2024-12-15 14:54 | XMS_ITS | Clinical Summary ---
Author Organization [facility] [address] Address [address] [place] [address] Care Team Providers Care Business Leader Name Role Phone Kobi Huntley DO Primary Care Provider Jose Carlos Saldana MD Unavailable Allergies No known active allergies Medications atorvastatin [...] (obstructive sleep apnea) 02/01/2021 Pulmonary HTN 02/01/2021 Surgical History Surgery Date Site/Laterality Comments BACK SURGERY 4 back surgeries lumbar Medical History Medical History Date Comments Hypertension Hypercholesteremia COPD (chronic obstructive pulmonary disease) (HC C) Sleep apnea Lung disease Family History Medical History Relation Name Comments Cancer Other Relation Name Status Comments Other Social History Tobacco Use Types Packs/Day Years [...] on file Legal Sex Male 4:38 PM AUTOMATION SOFTWARE 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 Gender Identity Not on file Sexual Orientation Not on file Obstetrics History Last Filed Vital Signs Vital Sign Reading [...] 01/14/2024 3:31 PM CDT Plan of Treatment Health Maintenance Due Date Last Done Comments Colon Cancer Screening-Colonoscopy 1955 Depression Screening 1955 Hepatitis C Screening 1955 Prostate Cancer Screening-PSA 1956 Hepatitis B Screening 01/28/1974 Zoster Vaccine (1 of 2) 01/28/2006 Pneumococcal vaccine 65+ (2 of 2 - PPSV23) 05/03/2020 03/08/2020 Well Visit 65+ 01/28/2021 Influenza Vaccine (#1) 2024 Fall Risk Assessment 11/10/2024 11/11/2023 DTaP/Tdap/Td Vaccine (2 - Td or Tdap) 04/07/2031 Medical Devices Implanted Type Area Backend Tester Device Identifier Shelf Expiration Date Model / Serial / Lot Depuy [employer] [place] 58mm Sector Hip Shell Acetabular Gription Sterile Latex Free [id number] - [id number] Implanted:Qty: 1 on 11/11/2023 by Jose Carlos Saldana MD at [facility] Left: Hip Depuy [employer] Inc 09/11/2033 [id number] / / [id number] Depuy [employer] [place] 58mm 36mm Hip Neutral Liner Acetabular Altrx Sterile Latex Free [id number] - [id number] Implanted:Qty: 1 on 11/11/2023 by Jose Carlos Saldana MD at [facility] Left: Hip Depuy [employer] Inc 09/11/2028 [id number] / / [id number] Depuy [employer] Inc Actis Collar Hip 9 High Offset Stem Femoral [id number] - [id number] Implanted:Qty: 1 on 11/11/2023 by Jose Carlos Saldana MD at [facility] Left: Hip [employer]uy [employer] Inc 08/11/2033 [id number] / / [id number] Depuy [employer] Inc Articul/Shashi 36mm Cementless Hip +8.5mm 12/14 Taper Head Femoral Latex Free 1365-36330 - [id number] Implanted:Qty: 1 on 11/11/2023 by Jose Carlos Saldana MD at [facility] Left: Hip Depuy [employer] Inc 08/11/2028 [id number] / / [id number] Insurance MEDICARE [facility] Advance Directives For more information, please contact: [phone] * Full Code (Latest Code Status on File) Date Activated Date Inactivated Comments 11/11/2023 11:04 AM 11/11/2023 6:25 PM Care Teams Business Leader Relationship Specialty Start Date End Date Kobi Huntley DO [address] [place] [address] PCP - General Family Medicine 07/09/23 Jose Carlos Saldana MD [address] [facility] [address] [place] [address] Surgeon Orthopedic Surgery 11/11/23
[2024-12-15 15:08] LABS: Basophils Absolute Auto 0.06 K/mm3 (0.00-0.10); Basophils Percent Auto 0.6 % (0.0-1.0); Eosinophils Absolute Auto 1.53 K/mm3 (0.02-0.50); Eosinophils Percent Auto 15.1 % (1.0-6.0); Hematocrit 34.1 % (37.0-46.0); Immature Granulocyte Absolute 0.04 K/mm3 (0.00-0.00); Immature Granulocyte Percent A 0.4 % (0.0-0.0); Lymphocytes Absolute Auto 0.77 K/mm3 (1.10-4.50); Lymphocytes Percent Auto 7.6 % (18.0-42.0); Mean Corpuscular HGB Conc 32.3 g/dL (32-36); Mean Corpuscular Hemoglobin 30.8 pg (27.0-31.0); Mean Corpuscular Volume 95.5 fL (78.0-102.0); Mean Platelet Volume 8.8 fl (8.7-11.0); Monocytes Absolute Auto 0.72 K/mm3 (0.10-0.90); Monocytes Percent Auto 7.1 % (2.0-11.0); Neutrophils Absolute Auto 6.99 K/mm3 (1.70-7.20); Neutrophils Percent Auto 69.2 % (50.0-70.0); Platelet Count Result 261 K/mm3 (150-420); Red Blood Count 3.57 M/mm3 (4.70-6.10); Red Cell Distribution Width 14.3 % (11.6-14.4); White Blood Count 10.1 K/mm3 (4.8-10.8)
[2024-12-15 15:31] LABS: Alanine Aminotransferase 9 U/L (16-63); Albumin Level 3.6 g/dL (3.4-5.0); Alkaline Phosphatase 77 U/L (46-116); Anion Gap 13 mmol/L (4-12); Aspartate Amino Transferase 15 U/L (15-37); Bilirubin,Total 0.3 mg/dL (0.00-1.00); Blood Urea Nitrogen 85 mg/dL (7-18); Carbon Dioxide 19 mmol/L (21-32); Chloride 102 mmol/L (98-108); Estimated Glomerular Filt Rate 19; Glucose 91 mg/dL (70-99); NT Pro B Type Natriuretic Pept 328 pg/mL (0-125); Osmolality Calculated 303 mOsm/kg (285-295); Potassium 5.7 mmol/L (3.5-5.1); Sodium 134 mmol/L (136-145); Total Protein 6.9 g/dL (6.4-8.2); Troponin I 13.6 ng/L (0.00-60.4)
[2024-12-17 15:58] LABS: H pylori, Urea Breath NOT DETECTED (NOT DETECTED)
== END 2024-12-15 14:47 | disposition home or self-care (01) ==
LOC: CHSLAB 14:49
PROVIDERS: PCP Family Medicine; Visit Provider Family Medicine
DX: R55 Syncope and collapse (principal); I50.30 Unspecified diastolic (congestive) heart failure
CPT/HCPCS: 36415; 80053; 83013; 83880; 84484; 85025

== ENCOUNTER 2024-12-16 08:51 | Inpatient (IN) | payer MEDICARE, OTHER, SELFPAY ==
[2024-12-16] VITALS (13 sets, daily range): BP systolic 126–147; BP diastolic 48–70; PULSE 64–84; RESP 16–20; TEMP 36.4–36.8; O2SAT 91–100; BMI 28.4; BMI 30.3
--- NOTE | ~2024-12-16 | US_ITS ---
EXAM: RENAL ULTRASOUND HISTORY: KALANI/ARF COMPARISON: None. Reference is made to a CT examination of the chest (which includes the upper abdome n) dated 08/15/2022 FINDINGS: RIGHT KIDNEY: 11.6 x 5.5 x 4.9 cm. The parenchyma of the right kidney is increased in echogenicity and relatively thin in caliber. No hydronephrosis or bulky renal calculi. A single rounded avascular anechoic focus is present within the lower pole of the right kidney measur ing 12 x 14 x 12mm, consistent with a simple cyst for which no further follow-up is needed. LEFT KIDNEY: 12.5 x 6.7 x 4.4 cm No hydronephrosis or renal calculi. The parenchyma of the left kidney is increased in echogenicity and thin in caliber. BLADDER: Distended, and otherwise unremarkable. IMPRESSION: No hydronephrosis or renal calculi. Findings suggesting medical renal disease. Reviewed, dictated and finalized at location A.
--- NOTE | ~2024-12-16 | XR_ITS ---
Portable chest x-ray Comparison: 08/15/2022 Clinical History: Dyspnea Findings: There is chronic blunting of left costophrenic angle versus minimal effusion. Right lung c lear. Cardiomediastinal silhouette is stable. Bones and soft tissues are unremarkable. Impression: Stable chronic blunting of the left costophrenic angle versus possibly small left pleural effusion. Reviewed, dictated and finalized at location . Impression: Stable chronic blunting of the left costophrenic angle versus possibly small le ft pleural effusion.
--- NOTE | 2024-12-16 09:04 | ECG_ITS ---
Test Date: 2024-12-16 09:21:17 Measurements Intervals [place] Rate: 62 P: 75 MS: 149 QRS: 31 QRSD: 101 T: 70 QT: 384 QTc: 392 Interpretive Statements SINUS RHYTHM No previous ECG available for comparison Electronically Signed On 12-16-2024 14:04:19 CDT by Milton Martínez M.D.
--- OUTSIDE RECORDS SUMMARY | 2024-12-16 09:05 | XMS_ITS | Clinical Summary ---
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
--- OUTSIDE RECORDS SUMMARY | 2024-12-16 09:05 | XMS_ITS | Referral Summary ---
Author Organization [facility] [address] Address [address] [place] [address] Care Team Providers Care Retail Coverage Merchandiser Name Role Phone Kobi Huntley DO Primary Care Provider Jose Carlos Saldana MD Unavailable [phone] Allergies No known active allergies Medications atorvastatin [...] on file Legal Sex Male 4:38 PM WORKERS COMPENSATION MANAGER Gender Identity Not on file Sexual Orientation [...] on file Medical Devices Implanted Type Area Magneto Specialist Device Identifier Shelf Expiration Date Model / Serial / Lot Depuy [employer] [place] 58mm Sector Hip Shell Acetabular Gription Sterile Latex Free [id number] - [id number] Implanted:Qty: 1 on 11/11/2023 by Jose Carlos Saldana MD at [facility] Left: Hip [employer]uy [employer] Inc 09/11/2033 [id number] / / [id number] Depuy [employer] [place] 58mm 36mm Hip Neutral Liner Acetabular Altrx Sterile Latex Free [id number] - [id number] Implanted:Qty: 1 on 11/11/2023 by Jose Carlos Saldana MD at [facility] Left: Hip [employer]uy [employer] Inc 09/11/2028 [id number] / / [id number] Depuy [employer] Inc Actis Collar Hip 9 High Offset Stem Femoral [id number] - [id number] Implanted:Qty: 1 on 11/11/2023 by Jose Carlos Saldana MD at [facility] Left: Hip [employer]uy [employer] Inc 08/11/2033 [id number] / / [id number] Depuy [employer] Inc Articul/Shashi 36mm Cementless Hip +8.5mm /14 Taper Head Femoral Latex Free 1365-36330 - [id number] Implanted:Qty: 1 on 11/11/2023 by Jose Carlos Saldana MD at [facility] Left: Hip [employer]uy [employer] Inc 08/11/2028 1365-36330 / / [id number] Insurance MEDICARE [employer] [facility] [address] Advance Directives For more information, please contact: [phone] * Full Code (Latest Code Status on File) Date Activated Date Inactivated Comments 11/11/2023 11:04 AM 11/11/2023 6:25 PM Care Teams Retail Coverage Merchandiser Relationship Specialty Start Date End Date Kobi Huntley DO [address] [place] [address] PCP - General Family Medicine 07/09/23 Jose Carlos Saldana MD [address] [place] [address] [place] [address] Surgeon Orthopedic Surgery 11/11/23
--- OUTSIDE RECORDS SUMMARY | 2024-12-16 09:05 | XMS_ITS | Clinical Summary ---
Author Organization [facility] [address] Address [address] [place] [address] Care Team Providers Care Rope Silica Machine Operator Name Role Phone Kobi Huntley DO Primary Care Provider Jose Carlos Saldana MD Unavailable [phone] Allergies No known active allergies Medications atorvastatin [...] on file Legal Sex Male 4:38 PM YOUTH ACCOMMODATION SUPPORT WORKER Gender Identity Not on file Sexual Orientation [...] Tdap) 04/07/2031 Medical Devices Implanted Type Area Hvac Technician Device Identifier Shelf Expiration Date Model / Serial / Lot Depuy [employer] [place] 58mm Sector Hip Shell Acetabular Gription Sterile Latex Free [id number] - [id number] Implanted:Qty: 1 on 11/11/2023 by Jose Carlos Saldana MD at [facility] Left: Hip Depuy [employer] Inc 09/11/2033 [id number] / / [id number] Depuy [employer] [place] 58mm 36mm Hip Neutral Liner Acetabular Altrx Sterile Latex Free [id number] - [id number] Implanted:Qty: 1 on 11/11/2023 by Jose Carlos Saldana MD at [facility] Left: Hip Depuy [employer] Inc 09/11/2028 [id number] / / [id number] Depuy [employer] Inc Actis Collar Hip 9 High Offset Stem Femoral [id number] - [id number] Implanted:Qty: 1 on 11/11/2023 by Jose Carlos Saldana MD at [facility] Left: Hip Depuy [employer] Inc 08/11/2033 [id number] / / [id number] Depuy [employer] Inc Articul/Shashi 36mm Cementless Hip +8.5mm 12/14 Taper Head Femoral Latex Free 1365-36330 - [id number] Implanted:Qty: 1 on 11/11/2023 by Jose Carlos Saldana MD at [facility] Left: Hip [employer]uy [employer] Inc 08/11/2028 1366-12-330 / / [id number] Insurance MEDICARE [facility] Advance Directives For more information, please contact: [phone] * Full Code (Latest Code Status on File) Date Activated Date Inactivated Comments 11/11/2023 11:04 AM 11/11/2023 6:25 PM Care Teams Rope Silica Machine Operator Relationship Specialty Start Date End Date Kobi Huntley DO [address] [place] [address] PCP - General Family Medicine 07/09/23 Jose Carlos Saldana MD [address] [facility] [address] [place] [address] Surgeon Orthopedic Surgery 11/11/23
--- OUTSIDE RECORDS SUMMARY | 2024-12-16 09:05 | XMS_ITS | Clinical Summary ---
Author Organization [facility] Address [address] [place] [address] Phone Care Team Providers Care Senior Service Aide Name Role Phone Provider, None Primary Care [...] complete this topic Insurance MEDICARE Care Teams Senior Service Aide Relationship Specialty Start Date End Date Provider, None [place] PCP - General 01/24/21
--- OUTSIDE RECORDS SUMMARY | 2024-12-16 09:05 | XMS_ITS | Clinical Summary ---
Author Organization [facility] Address [address] [place] [address] Care Team Providers Care Fish Hatchery Specialist Name Role Phone Unavailable Primary Care Provider [...]
--- OUTSIDE RECORDS SUMMARY | 2024-12-16 09:05 | XMS_ITS | Encounter Summary ---
Author Organization [employer] Address [address] [place] [address] Care Team Providers Care Turner Off Name Role Phone Unavailable Primary Care Provider Unavailabl e Encounter Details Date Type Department Care Team (Late st Contact Info) Description 07/24/2001 Outpatient Historical [facility], [address] Social History Tobacco Use Types Packs/Day Years Used Date Smoking Tobacco: Never Assessed Sex and Gender Information Value Date Recorded Sex Assigned at Not on file Legal Sex Male 4:49 AM DIGITAL CONTENT COORDINATOR Gender Identity Not on file Sexual Orientation Not on file documented as of this encounter Plan of Treatment Not on file documented as of this encounter Visit Diagnoses Not on filedocumented in this encounter
[2024-12-16 09:07] LABS: Basophils Absolute Auto 0.1 K/mm3 (0.0-0.1); Basophils Percent Auto 0.5 % (0.2-1.2); Eosinophils Absolute Auto 0.1 K/mm3 (0-0.3); Eosinophils Percent Auto 1.3 % (0-4.4); Hematocrit 35.5 % (42.0-52.0); Hemoglobin 11.3 g/dL (14.0-18.0); Immature Granulocyte Absolute 0.05 K/mm3 (0.00-0.031); Immature Granulocyte Percent A 0.5 % (0-0.5); Lymphocytes Absolute Auto 0.32 K/mm3 (0.9-3.2); Lymphocytes Percent Auto 2.9 % (18.3-44.2); Mean Corpuscular HGB Conc 31.8 g/dl (32-36); Mean Corpuscular Hemoglobin 30.8 pg (26-34); Mean Corpuscular Volume 96.7 fl (80-100); Mean Platelet Volume 9.1 fl (7.4-10.4); Monocytes Absolute Auto 0.1 K/mm3 (0.1-0.6); Monocytes Percent Auto 0.8 % (2.6-8.5); Neutrophils Absolute Auto 10.4 K/mm3 (1.3-6.7); Platelet Count Result 293 k/mm3 (150-375); Red Blood Count 3.67 M/mm3 (4.6-6.20); Red Cell Distribution Width 14.4 % (11.5-14.5); White Blood Count 11.1 K/mm3 (4.5-10.0)
[2024-12-16 09:27] LABS: Alanine Aminotransferase 19 U/L (6-50); Albumin Level 4.5 g/dL (3.5-5.1); Alkaline Phosphatase 95 U/L (38-126); Anion Gap 13 mmol/L (4-12); Aspartate Amino Transferase 21 U/L (17-59); Bilirubin,Total 0.3 mg/dL (0.2-1.3); Blood Urea Nitrogen 80 mg/dL (9-20); Calcium 10.2 mg/dL (8.4-10.2); Carbon Dioxide 17 mmol/L (22-30); Chloride 108 mmol/L (98-107); Creatine Kinase 65 U/L (55-170); Estimated CRCL calculation 28 ml/min; Estimated Glomerular Filt Rate 26; Glucose 127 mg/dL (65-110); Potassium 6.2 mmol/L (3.4-5.0); Sodium 138 mmol/L (137-145)
[2024-12-16 09:35] LABS: Troponin I < 0.012 ng/mL (0.000-0.034)
--- NOTE | 2024-12-16 09:35 | ED.RECABL ---
HPI - Recheck/Abnormal Lab/Rx General Chief Complaint: Recheck/Abnormal Lab/Rx Stated Complaint: dehydration, sent by pcp for admission Time Seen by Provider: 12/16/24 09:05 History of Present Illness HPI narrative: 69-year-old male with a past medical history including COPD, hypertension, HFpEF, hyperlipidemia, pulmonary hypertension, prediabetes. Patient presents to the emergency department today for abnormal labs. Patient states that he was feeling dehydrated and went to his primary care provider's office yesterday where he had labs drawn. Patient was complaining of some exertional dyspnea and GERD like symptoms for about a week. PCP called him this morning and told him to go the nearest emergency department for acute kidney failure and elevated potassium levels. Patient presently is rather asymptomatic. Denies any shortness a breath at rest, no chest pain, nausea, vomiting. Does state he has some occasional burning epigastric discomfort but not presently. No back pain, fever, chills. No history of CKD or previous dialysis. He does take colchicine and allopurinol for gout and lisinopril for hypertension, torsemide for HFpEF. No recent medication changes according to the patient and family. Was otherwise in his normal state of health. Related Data Home Medications ?Medication ?Instructions ?Recorded ?Confirmed ?Last Taken ?Type budesonide 160 mcg-glycopyr 9 1 inh inhalation DAILY 04/07/21 12/15/24 Unknown History mcg-formot 4.8 mcg/actuation HFA inhaler (Breztri Aerosphere) ipratropium 0.5 mg-albuterol 3 mg 3 ml inhalation Q6-8H PRN 04/10/21 12/15/24 Unknown History (2.5 mg base)/3 mL nebulization soln ipratropium 20 mcg-albuterol 100 1 puff inhalation QID PRN 07/07/24 12/15/24 Unknown History mcg/actuation mist for inhalation (Combivent Respimat) Allergies Allergy/AdvReac Type Severity Reaction Status Date / Time No Known Allergies Allergy Verified 12/16/24 08:58 Review of Systems Review of Systems: As reviewed above in [facility] Past Medical History Medical History Hyperlipidemia Hypertension Prediabetes Leg wound, left Nicotine addiction Pulmonary hypertension Left leg cellulitis COPD (chronic obstructive pulmonary disease) Surgical History Surgical History History of tonsillectomy Previous back surgery Rods and screws, 2002 Family History Family History Father Heart disease Mother Lung cancer Social History Social History Smoking packs per day: 1 Smoking cigarettes per day: 20.0 Years smoked: 45 Smoking pack-years: 45.00 Smoking status: Former smoker Smoking end date: 04/11/23 Alcohol intake: current Alcohol use details: weekends Substance use: never Substance use type: does not use Lack of Transportation: No Lack of Food: Never True Current Housing: I Have Housing Concerned About Future Housing: No Difficulty Paying Gas/Electric Bills: No Difficulty Paying for Meds: No Currently Unemployed: No Education: High School Diploma/GED Difficulty w/ Childcare or Family Care: No Living arrangements: with family Additional living arrangements comments: Occupation/Education: retired Exam Narrative: GENERAL: [Well-appearing, well-nourished, and in no acute distress.] HEAD: [Normocephalic, atraumatic.] EYES: [PERRLA and EOMI.] ENT: Nares clear, no rhinorrhea or epistaxis. Mucous membranes moist. NECK: Supple. CHEST: [Clear to auscultation. No respiratory distress.] HEART: [Regular rate and rhythm]. No murmur heard. [Normal peripheral pulses.] ABDOMEN: [Soft, nondistended], [nontender], [No rigidity or guarding] EXTREMITIES: Normal range of motion. [No edema.] SKIN: Warm, dry, no rash. NEURO: [No focal deficits]. Alert and oriented [x3.] PSYCH: [Normal mood and affect.] Course Vital Signs Vital signs: Vital Signs Temperature 36.4 C 12/16/24 08:54 Pulse Rate 76 12/16/24 08:54 Respiratory Rate 20 12/16/24 08:54 Blood Pressure 147/70 H 12/16/24 08:54 Pulse Oximetry 100 12/16/24 08:54 Oxygen Delivery Room Air 12/16/24 08:54 Temperature 36.4 C 12/16/24 08:54 Pulse Rate 76 12/16/24 09:24 Respiratory Rate 19 12/16/24 09:24 Blood Pressure 147/70 H 12/16/24 09:24 Pulse Oximetry 100 12/16/24 09:24 Oxygen Delivery Room Air 12/16/24 08:54 MDM - Recheck/Abnormal Lab/Rx MDM Narrative Medical decision making narrative: 69-year-old male with a history of prediabetes, COPD, hypertension, hyperlipidemia, pulmonary hypertension, gout. Patient presents to the emergency department for abnormal outside hospital labs. Patient states that he was feeling dehydrated and having some exertional dyspnea with burning epigastric discomfort recently any went to his primary doctor yesterday who tamar laboratory studies. He had unremarkable cardiac workup but his kidney function was significantly worse than his previous levels. No history of kidney failure or dialysis in the past. Does take several potentially nephrotoxic drugs including lisinopril, torsemide, colchicine, allopurinol. No recent changes according to him. He otherwise appears well, normal vital signs without any significant hypertension, tachycardia, fever, hypoxia. Suspicion presently is for pre renal azotemia and dehydration causing kidney injury, electrolyte imbalances, medication side effect, new onset kidney disease or failure from his comorbidities. Laboratory studies were drawn including a CBC, CMP, troponin, EKG. He was given fluid resuscitation. EKG is nonischemic. BMP shows kidney failure with elevated potassium 6.2, elevated BUN of 80, creatinine of 2.5, unremarkable CPK. Normal glucose. Negative troponin. Patient was given IV medications for emergent lowering of his potassium including calcium gluconate, insulin, dextrose, sodium bicarb and p.o. Lokelma. Nephrology will be consulted and patient will be admitted to the hospital for further evaluation and treatment. Discussed the case with Dr. Lujan the on-call cross country/track and field coach. Recommendations are for continued hydration and repeat BMP and he will be evaluated on inpatient basis. Spoke to the hospitalist Dr. Sebastian and we went over patient's clinical exam, laboratory assessments and treatment regimen here in the emergency department. Patient will be admitted to the IMU for continued care and repeat BMP was ordered. Patient updated on plan of care and agreeable for admission. Medical Records Attestation: I reviewed the patient's medical records. Lab Data Attestation: I reviewed the patient's lab results. 12/16/24 09:01 12/16/24 09:01 Labs: Lab Results 12/16/24 12/16/24 12/16/24 Range/Units 09:01 09:01 09:01 WBC 11.1 H (4.5-10.0) K/mm3 RBC 3.67 L (4.6-6.20) M/mm3 Hgb 11.3 L (14.0-18.0) g/dL Hct 35.5 L (42.0-52.0) % MCV 96.7 (80-100) fl MCH 30.8 (26-34) pg MCHC 31.8 L (32-36) g/dl RDW 14.4 (11.5-14.5) % Plt Count 293 (150-375) k/mm3 MPV 9.1 (7.4-10.4) fl Immature Gran % (Auto) 0.5 (0-0.5) % Neut % (Auto) 94.0 H (45.5-73.1) % Lymph % (Auto) 2.9 L (18.3-44.2) % [place] % (Auto) 0.8 L (2.6-8.5) % Eos % (Auto) 1.3 (0-4.4) % Baso % (Auto) 0.5 (0.2-1.2) % Lymph # (Auto) 0.32 L (0.9-3.2) K/mm3 [place] # (Auto) 0.1 (0.1-0.6) K/mm3 Eos # (Auto) 0.1 (0-0.3) K/mm3 Baso # (Auto) 0.1 (0.0-0.1) K/mm3 Abs Immat Gran (auto) 0.05 H (0.00-0.031) K/mm3 Absolute Neuts (auto) 10.4 H (1.3-6.7) K/mm3 Absolute Nucleated RBC 0.000 (0.0-0.012) K/mm3 Nucleated RBC % 0.0 (0.0-0.2) % Sodium Cancelled 138 Potassium Cancelled 6.2 H* Chloride Cancelled Carbon Dioxide Anion Gap BUN Creatinine Estim Creat Clear Calc Estimated GFR Glucose Calcium Total Bilirubin AST ALT Alkaline Phosphatase Total Creatine Kinase (55-170) U/L Troponin I (0.000-0.034) ng/mL Total Protein Albumin Urine Color (Yellow) Urine Appearance (Clear) Urine pH (5.0-9.0) Ur Specific [place] (1.001-1.035) Urine Protein (Negative) mg/dL Urine Glucose (UA) (Negative) mg/dL Urine Ketones (Negative) mg/dL Ur Blood (Man) (Negative) Urine Nitrate (Negative) Urine Bilirubin (Negative) Urine Urobilinogen (<2.0) mg/dL Leukocyte Esterase Rfl (Negative) PATRICK/UL 12/16/24 12/16/24 12/16/24 Range/Units 09:01 09:01 09:01 WBC (4.5-10.0) K/mm3 RBC (4.6-6.20) M/mm3 Hgb (14.0-18.0) g/dL Hct (42.0-52.0) % MCV (80-100) fl MCH (26-34) pg MCHC (32-36) g/dl RDW (11.5-14.5) % Plt Count (150-375) k/mm3 MPV (7.4-10.4) fl Immature Gran % (Auto) (0-0.5) % Neut % (Auto) (45.5-73.1) % Lymph % (Auto) (18.3-44.2) % [place] % (Auto) (2.6-8.5) % Eos % (Auto) (0-4.4) % Baso % (Auto) (0.2-1.2) % Lymph # (Auto) (0.9-3.2) K/mm3 [place] # (Auto) (0.1-0.6) K/mm3 Eos # (Auto) (0-0.3) K/mm3 Baso # (Auto) (0.0-0.1) K/mm3 Abs Immat Gran (auto) (0.00-0.031) K/mm3 Absolute Neuts (auto) (1.3-6.7) K/mm3 Absolute Nucleated RBC (0.0-0.012) K/mm3 Nucleated RBC % (0.0-0.2) % Sodium Potassium Chloride 108 H Carbon Dioxide Cancelled 17 L Anion Gap Cancelled 13 H BUN Cancelled Creatinine Estim Creat Clear Calc Estimated GFR Glucose Calcium Total Bilirubin AST ALT Alkaline Phosphatase Total Creatine Kinase (55-170) U/L Troponin I (0.000-0.034) ng/mL Total Protein Albumin Urine Color (Yellow) Urine Appearance (Clear) Urine pH (5.0-9.0) Ur Specific [place] (1.001-1.035) Urine Protein (Negative) mg/dL Urine Glucose (UA) (Negative) mg/dL Urine Ketones (Negative) mg/dL Ur Blood (Man) (Negative) Urine Nitrate (Negative) Urine Bilirubin (Negative) Urine Urobilinogen (<2.0) mg/dL Leukocyte Esterase Rfl (Negative) PATRICK/UL 12/16/24 12/16/24 12/16/24 Range/Units 09:01 09:01 09:01 WBC (4.5-10.0) K/mm3 RBC (4.6-6.20) M/mm3 Hgb (14.0-18.0) g/dL Hct (42.0-52.0) % MCV (80-100) fl MCH (26-34) pg MCHC (32-36) g/dl RDW (11.5-14.5) % Plt Count (150-375) k/mm3 MPV (7.4-10.4) fl Immature Gran % (Auto) (0-0.5) % Neut % (Auto) (45.5-73.1) % Lymph % (Auto) (18.3-44.2) % King[place] % (Auto) (2.6-8.5) % Eos % (Auto) (0-4.4) % Baso % (Auto) (0.2-1.2) % Lymph # (Auto) (0.9-3.2) K/mm3 [place] # (Auto) (0.1-0.6) K/mm3 Eos # (Auto) (0-0.3) K/mm3 Baso # (Auto) (0.0-0.1) K/mm3 Abs Immat Gran (auto) (0.00-0.031) K/mm3 Absolute Neuts (auto) (1.3-6.7) K/mm3 Absolute Nucleated RBC (0.0-0.012) K/mm3 Nucleated RBC % (0.0-0.2) % Sodium Potassium Chloride Carbon Dioxide Anion Gap BUN 80 H Creatinine Cancelled 2.50 H Estim Creat Clear Calc Cancelled 28 Estimated GFR Cancelled Glucose Calcium Total Bilirubin AST ALT Alkaline Phosphatase Total Creatine Kinase (55-170) U/L Troponin I (0.000-0.034) ng/mL Total Protein Albumin Urine Color (Yellow) Urine Appearance (Clear) Urine pH (5.0-9.0) Ur Specific [place] (1.001-1.035) Urine Protein (Negative) mg/dL Urine Glucose (UA) (Negative) mg/dL Urine Ketones (Negative) mg/dL Ur Blood (Man) (Negative) Urine Nitrate (Negative) Urine Bilirubin (Negative) Urine Urobilinogen (<2.0) mg/dL Leukocyte Esterase Rfl (Negative) PATRICK/UL 12/16/24 12/16/24 12/16/24 Range/Units 09:01 09:01 09:01 WBC (4.5-10.0) K/mm3 RBC (4.6-6.20) M/mm3 Hgb (14.0-18.0) g/dL Hct (42.0-52.0) % MCV (80-100) fl MCH (26-34) pg MCHC (32-36) g/dl RDW (11.5-14.5) % Plt Count (150-375) k/mm3 MPV (7.4-10.4) fl Immature Gran % (Auto) (0-0.5) % Neut % (Auto) (45.5-73.1) % Lymph % (Auto) (18.3-44.2) % [place] % (Auto) (2.6-8.5) % Eos % (Auto) (0-4.4) % Baso % (Auto) (0.2-1.2) % Lymph # (Auto) (0.9-3.2) K/mm3 [place] # (Auto) (0.1-0.6) K/mm3 Eos # (Auto) (0-0.3) K/mm3 Baso # (Auto) (0.0-0.1) K/mm3 Abs Immat Gran (auto) (0.00-0.031) K/mm3 Absolute Neuts (auto) (1.3-6.7) K/mm3 Absolute Nucleated RBC (0.0-0.012) K/mm3 Nucleated RBC % (0.0-0.2) % Sodium Potassium Chloride Carbon Dioxide Anion Gap BUN Creatinine Estim Creat Clear Calc Estimated GFR 26 L Glucose Cancelled 127 H Calcium Cancelled 10.2 Total Bilirubin Cancelled AST ALT Alkaline Phosphatase Total Creatine Kinase (55-170) U/L Troponin I (0.000-0.034) ng/mL Total Protein Albumin Urine Color (Yellow) Urine Appearance (Clear) Urine pH (5.0-9.0) Ur Specific [place] (1.001-1.035) Urine Protein (Negative) mg/dL Urine Glucose (UA) (Negative) mg/dL Urine Ketones (Negative) mg/dL Ur Blood (Man) (Negative) Urine Nitrate (Negative) Urine Bilirubin (Negative) Urine Urobilinogen (<2.0) mg/dL Leukocyte Esterase Rfl (Negative) PATRICK/UL 12/16/24 12/16/24 12/16/24 Range/Units 09:01 09:01 09:01 WBC (4.5-10.0) K/mm3 RBC (4.6-6.20) M/mm3 Hgb (14.0-18.0) g/dL Hct (42.0-52.0) % MCV (80-100) fl MCH (26-34) pg MCHC (32-36) g/dl RDW (11.5-14.5) % Plt Count (150-375) k/mm3 MPV (7.4-10.4) fl Immature Gran % (Auto) (0-0.5) % Neut % (Auto) (45.5-73.1) % Lymph % (Auto) (18.3-44.2) % [place] % (Auto) (2.6-8.5) % Eos % (Auto) (0-4.4) % Baso % (Auto) (0.2-1.2) % Lymph # (Auto) (0.9-3.2) K/mm3 [place] # (Auto) (0.1-0.6) K/mm3 Eos # (Auto) (0-0.3) K/mm3 Baso # (Auto) (0.0-0.1) K/mm3 Abs Immat Gran (auto) (0.00-0.031) K/mm3 Absolute Neuts (auto) (1.3-6.7) K/mm3 Absolute Nucleated RBC (0.0-0.012) K/mm3 Nucleated RBC % (0.0-0.2) % Sodium Potassium Chloride Carbon Dioxide Anion Gap BUN Creatinine Estim Creat Clear Calc Estimated GFR Glucose Calcium Total Bilirubin 0.3 AST Cancelled 21 ALT Cancelled 19 Alkaline Phosphatase Cancelled Total Creatine Kinase (55-170) U/L Troponin I (0.000-0.034) ng/mL Total Protein Albumin Urine Color (Yellow) Urine Appearance (Clear) Urine pH (5.0-9.0) Ur Specific [place] (1.001-1.035) Urine Protein (Negative) mg/dL Urine Glucose (UA) (Negative) mg/dL Urine Ketones (Negative) mg/dL Ur Blood (Man) (Negative) Urine Nitrate (Negative) Urine Bilirubin (Negative) Urine Urobilinogen (<2.0) mg/dL Leukocyte Esterase Rfl (Negative) PATRICK/UL 12/16/24 12/16/24 12/16/24 Range/Units 09:01 09:01 09:01 WBC (4.5-10.0) K/mm3 RBC (4.6-6.20) M/mm3 Hgb (14.0-18.0) g/dL Hct (42.0-52.0) % MCV (80-100) fl MCH (26-34) pg MCHC (32-36) g/dl RDW (11.5-14.5) % Plt Count (150-375) k/mm3 MPV (7.4-10.4) fl Immature Gran % (Auto) (0-0.5) % Neut % (Auto) (45.5-73.1) % Lymph % (Auto) (18.3-44.2) % [place] % (Auto) (2.6-8.5) % Eos % (Auto) (0-4.4) % Baso % (Auto) (0.2-1.2) % Lymph # (Auto) (0.9-3.2) K/mm3 [place] # (Auto) (0.1-0.6) K/mm3 Eos # (Auto) (0-0.3) K/mm3 Baso # (Auto) (0.0-0.1) K/mm3 Abs Immat Gran (auto) (0.00-0.031) K/mm3 Absolute Neuts (auto) (1.3-6.7) K/mm3 Absolute Nucleated RBC (0.0-0.012) K/mm3 Nucleated RBC % (0.0-0.2) % Sodium Potassium Chloride Carbon Dioxide Anion Gap BUN Creatinine Estim Creat Clear Calc Estimated GFR Glucose Calcium Total Bilirubin AST ALT Alkaline Phosphatase 95 Total Creatine Kinase 65 (55-170) U/L Troponin I < 0.012 (0.000-0.034) ng/mL Total Protein Cancelled 8.0 Albumin Cancelled 4.5 Urine Color (Yellow) Urine Appearance (Clear) Urine pH (5.0-9.0) Ur Specific [place] (1.001-1.035) Urine Protein (Negative) mg/dL Urine Glucose (UA) (Negative) mg/dL Urine Ketones (Negative) mg/dL Ur Blood (Man) (Negative) Urine Nitrate (Negative) Urine Bilirubin (Negative) Urine Urobilinogen (<2.0) mg/dL Leukocyte Esterase Rfl (Negative) PATRICK/UL 05/07/25 Range/Units 09:39 WBC (4.5-10.0) K/mm3 RBC (4.6-6.20) M/mm3 Hgb (14.0-18.0) g/dL Hct (42.0-52.0) % MCV (80-100) fl MCH (26-34) pg MCHC (32-36) g/dl RDW (11.5-14.5) % Plt Count (150-375) k/mm3 MPV (7.4-10.4) fl Immature Gran % (Auto) (0-0.5) % Neut % (Auto) (45.5-73.1) % Lymph % (Auto) (18.3-44.2) % [place] % (Auto) (2.6-8.5) % Eos % (Auto) (0-4.4) % Baso % (Auto) (0.2-1.2) % Lymph # (Auto) (0.9-3.2) K/mm3 [place] # (Auto) (0.1-0.6) K/mm3 Eos # (Auto) (0-0.3) K/mm3 Baso # (Auto) (0.0-0.1) K/mm3 Abs Immat Gran (auto) (0.00-0.031) K/mm3 Absolute Neuts (auto) (1.3-6.7) K/mm3 Absolute Nucleated RBC (0.0-0.012) K/mm3 Nucleated RBC % (0.0-0.2) % Sodium Potassium Chloride Carbon Dioxide Anion Gap BUN Creatinine Estim Creat Clear Calc Estimated GFR Glucose Calcium Total Bilirubin AST ALT Alkaline Phosphatase Total Creatine Kinase (55-170) U/L Troponin I (0.000-0.034) ng/mL Total Protein Albumin Urine Color Yellow (Yellow) Urine Appearance Clear (Clear) Urine pH 5.0 (5.0-9.0) Ur Specific [place] 1.007 (1.001-1.035) Urine Protein Negative (Negative) mg/dL Urine Glucose (UA) Negative (Negative) mg/dL Urine Ketones Negative (Negative) mg/dL Ur Blood (Man) Negative (Negative) Urine Nitrate Negative (Negative) Urine Bilirubin Negative (Negative) Urine Urobilinogen 0.2 (<2.0) mg/dL Leukocyte Esterase Rfl Negative (Negative) PATRICK/UL Imaging Data Attestation: I personally reviewed and interpreted this imaging study as follows: My impression: Impressions Chest X-Ray 12/16/24 09:52 Impression: Stable chronic blunting of the left costophrenic angle versus possibly small left pleural effusion. ECG Data EKG #1: Attestation: I personally reviewed and interpreted this ECG as follows: ECG completion date: 12/16/24 ECG completion time: 09:21 Prior ECG tracings: not available for review Interpretation: Sinus rhythm, QTC 392, QRS 101, NM interval 149 mm, ventricular rate of 62 beats per minute. No ST segment elevations, depressions or acute inversions. No hyperkalemic T-wave. Overall sinus rhythm with no previous EKG for comparison. Critical Care Time Critical Care Time Critical Care Time: Yes Total Critical Care Time: 36 Discharge Plan Discharge Clinical Impression: Acute renal failure, Acute hyperkalemia, Acute dehydration Patient Disposition: Still a Patient Condition: Stable Time of Disposition: 10:46
[2024-12-16 09:46] LABS: Add Urine Microscopic? NO; Appearance Urine Clear (Clear); Bilirubin Urine Negative (Negative); Blood Urine Negative (Negative); Color Urine Yellow (Yellow); Glucose Urine UA Negative (Negative); Ketones Urine Negative (Negative); Leukocyte Esterase Ur Negative LEU/UL (Negative); Nitrate Urine Negative (Negative); Protein Urine Negative (Negative); Specific Grav Ur 1.007 (1.001-1.035); Urobilinogen Urine 0.2 mg/dL (<2.0)
[2024-12-16] MEDS: LACTATED RINGERS 1,000 ML 999 ML IV CONT ×2 (09:49)
[2024-12-16] MEDS: SODIUM BICARBONATE 8.4% 50 MEQ/50 ML SYRINGE IV PUSH (09:50)
[2024-12-16] MEDS: SODIUM ZIRCONIUM CYCLOSILICATE 10 GM POWD.PACK PO ×3 (09:51→22:26)
[2024-12-16] MEDS: DEXTROSE 50% 25 GM/50 ML SYRINGE IV PUSH ×2 (09:51→16:12)
[2024-12-16] MEDS: INSULIN HUMAN REGULAR (*BKC) 100 UNITS/ML IV PUSH ×2 (09:52→16:26)
[2024-12-16] MEDS: CALCIUM GLUCONATE 1,000 MG/10 ML VIAL 1000 MG IV PUSH (09:52)
--- OUTSIDE RECORDS SUMMARY | 2024-12-16 10:29 | XMS_ITS | Encounter Summary ---
Author Organization [employer] Address 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
--- OUTSIDE RECORDS SUMMARY | 2024-12-16 10:29 | XMS_ITS | Clinical Summary ---
Author Organization [facility] Address [address] [place] [address] Phone Care Team Providers Care Internal Grinder Set Up Operator Name Role Phone Provider, None Primary Care [...] complete this topic Insurance MEDICARE Care Teams Internal Grinder Set Up Operator Relationship Specialty Start Date End Date Provider, None [place] PCP - General 01/24/21
--- OUTSIDE RECORDS SUMMARY | 2024-12-16 10:29 | XMS_ITS | Clinical Summary ---
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 Gender Identity Not on file Sexual Orientation [...] Tdap) 04/07/2031 Medical Devices Implanted Type Area Manual Training Teacher Device Identifier Shelf Expiration Date Model / Serial / Lot [employer] [place] 58mm Sector Hip Shell Acetabular Gription Sterile Latex Free [id number] - [id number] Implanted:Qty: 1 on 11/11/2023 by Jose Carlos Saldana MD at [facility] Left: Hip [employer] 09/11/2033 [id number] / / [id number] [employer] [place] 58mm 36mm Hip Neutral Liner Acetabular Altrx Sterile Latex Free [id number] - [id number] Implanted:Qty: 1 on 11/11/2023 by Jose Carlos Saldana MD at [facility] Left: Hip [employer] 09/11/2028 [id number] / / [id number] [employer] Actis Collar Hip 9 High Offset Stem Femoral [id number] - [id number] Implanted:Qty: 1 on 11/11/2023 by Jose Carlos Saldana MD at [facility] Left: Hip [employer] 08/11/2033 [id number] / / [id number] [employer] Articul/Shashi 36mm Cementless Hip +8.5mm 12/14 Taper Head Femoral Latex Free [id number] - [id number] Implanted:Qty: 1 on 11/11/2023 by Jose Carlos Saldana MD at [facility] Left: Hip [employer] 08/11/2028 [id number] / / [id number] Insurance MEDICARE [facility] Advance Directives For more information, please contact: [phone] * Full Code (Latest Code Status on File) Date Activated Date Inactivated Comments 11/11/2023 11:04 AM 11/11/2023 6:25 PM Care Teams Transfer Driver Relationship Specialty Start Date End Date Kobi Huntley DO [address] [place] [address] PCP - General Family Medicine 07/09/23 Jose Carlos Saldana MD [address] [place] [address] [place] [id number] Surgeon Orthopedic Surgery 11/11/23
--- OUTSIDE RECORDS SUMMARY | 2024-12-16 10:29 | XMS_ITS | Clinical Summary ---
Author Organization [facility] Address [address] [place] [address] Care Team Providers Care Refrigeration Plant Operator Name Role Phone Unavailable Primary Care Provider [...]
--- OUTSIDE RECORDS SUMMARY | 2024-12-16 10:29 | XMS_ITS | Clinical Summary ---
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
--- OUTSIDE RECORDS SUMMARY | 2024-12-16 10:29 | XMS_ITS | Referral Summary ---
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 Gender Identity Not on file Sexual Orientation [...] on file Medical Devices Implanted Type Area Vp Product Device Identifier Shelf Expiration Date Model / Serial / Lot [employer] [place] 58mm Sector Hip Shell Acetabular Gription Sterile Latex Free [id number] - [id number] Implanted:Qty: 1 on 11/11/2023 by Jose Carlos Saldana MD at [facility] Left: Hip [employer] 09/11/2033 [id number] / / [id number] [employer] [place] 58mm 36mm Hip Neutral Liner Acetabular Altrx Sterile Latex Free [id number] - [id number] Implanted:Qty: 1 on 11/11/2023 by Jose Carlos Saldana MD at [facility] Left: Hip [employer] 09/11/2028 [id number] / / [id number] [employer] Actis Collar Hip 9 High Offset Stem Femoral [id number] - [id number] Implanted:Qty: 1 on 11/11/2023 by Jose Carlos Saldana MD at [facility] Left: Hip [employer] 08/11/2033 [id number] / / [id number] [employer] Articul/Shashi 36mm Cementless Hip +8.5mm /14 Taper Head Femoral Latex Free [id number] - [id number] Implanted:Qty: 1 on 11/11/2023 by Jose Carlos Saldana MD at [facility] Left: Hip [employer] 08/11/2028 [id number] / / [id number] Insurance MEDICARE [employer] [facility] [id number] Advance Directives For more information, please contact: [phone] * Full Code (Latest Code Status on File) Date Activated Date Inactivated Comments 11/11/2023 11:04 AM 11/11/2023 6:25 PM Care Teams Supervisor Wet Pour Relationship Specialty Start Date End Date Kobi Huntley DO [address] [place] [address] PCP - General Family Medicine 07/09/23 Jose Carlos Saldana MD [address] [place] [address] [place] [place] [address] Surgeon Orthopedic Surgery 11/11/23
[2024-12-16 11:00] LABS: Glucose Point of Care 103 mg/dl (65-105)
--- NOTE | 2024-12-16 11:41 | ADMGEN ---
This patient, Stevie Albarado, was admitted to IMU Room 206-01. Patient/family oriented to hospital policies and general routines including ID bracelet, bed and alarms, visiting hours, pain management, procedures, bathroom and other care routines, personal items, smoking policy, room service/diet, and visiting hours. will bring in cpap from home Information on how to activate the Rapid Response Team has been discussed. Patient/Family are encouraged to report perceived risks to care and to ask questions if they do not understand what they are told or what they should do.
[2024-12-16] MEDS: LACTATED RINGERS 1,000 ML 125 ML IV CONT ×2 (11:45→19:19)
--- NOTE | 2024-12-16 13:00 | P.CONNP_ITS ---
Assessment and Plan Assessment and plan (1) Acute kidney injury: Code(s): N17.9 - Acute kidney failure, unspecified Status: Acute Assessment and Plan: * as noted by admission labs * baseline creatinine runs around 1.1 - 1.2mg/dl * suspect multifactorial etiology: * prerenal factors * diuretic use (HCTZ and torsemide) * KATIE-I use * other(?) * agree with trial of IVFs * check renal ultrasound, CPK, and urine studies * follow trend of repeat labs and UOP (2) Hyperkalemia: Code(s): E87.5 - Hyperkalemia Status: Acute Assessment and Plan: * noted by outpatinet labs and worse on admission * presumably secondary to #1 * s/p medical management in ER * follow trend of repeat K+ levels (3) Hypertension: Code(s): I10 - Essential (primary) hypertension Status: Chronic Assessment and Plan: * reasonable control * lisinopril and diuretics on hold * follow trend of hemodynamics (4) Anemia: Code(s): D64.9 - Anemia, unspecified Status: Acute Assessment and Plan: * probably due to KALANI/ARF * follow trend of H/H (5) Metabolic acidosis: Code(s): E87.20 - Acidosis, unspecified Status: Acute Assessment and Plan: * due to KALANI/ARF * follow trend of CO2 readings * should improve as KALANI get better (6) COPD (chronic obstructive pulmonary disease): Code(s): J44.9 - Chronic obstructive pulmonary disease, unspecified Status: Chronic Assessment and Plan: * continue home inhalers * nebulizer treatments PRN I will continue to follow the patient with you while he remains hospitalized and make further recommendations as deemed necessary. Thank you for allowing me to participate in the care of this patient. L History of Present Illness Reason for Consult Consult date: 12/16/24 Reason for consult: acute renal failure Chief Complaint Chief complaint: Renal failure, hyperkalemia History of Present Illness Narrative: The patient is a 69-year-old male with a past medical history as outlined below who presented to [facility] Emergency Room for further evaluation of abnormal labs. The patient had recent outpatient labs done on 12/15/24 which demonstrated a marked change in his renal function in association with a mildly elevated potassium level. His primary care physician called him after reviewing this blood work and instructed him to come to the emergency room for further assessment. the patient states that a couple of days ago he was playing golf and could only do 9 rounds before he felt ill and went home. He states he was drinking Sprite when he was golfing but still felt ill and ended his game early. After that day of golf, he still felt ill and had no energy so his made an appointment for him to see his doctor. It was on that office visit that he had outpatient labs done which demonstrated evidence of acute kidney injury/acute renal failure in association with an elevated potassium level. His primary care physician called him this morning and related these laboratory abnormalities and instructed him to come to the emergency room. Other than feeling ill, he gave no specific complaints with regard to fevers, chills, diaphoresis, nausea, vomiting, diarrhea, dizziness, lightheadedness, or palpitations although he did state that he felt that his COPD was acting up. Workup and evaluation emergency room demonstrated the patient to be hemodynamically stable and in no acute distress. Repeat labs were done which demonstrated elevated white blood count 11.1, hemoglobin 11.3, BUN of 80, creatinine of 2.5, potassium 6.2, bicarb of 17 and a negative urinalysis. His chest x-ray showed stable chronic blunting of the left costophrenic angle versus possibly a small left pleural effusion and his EKG showed normal sinus rhythm without any changes consistent with hyperkalemia. He received IV fluid resuscitation as well as medical management for his hyperkalemia in the form of calcium gluconate, regular insulin, D50, bicarb, and Lokelma. He was subsequently admitted to the hospital for further evaluation and therapy. Renal consultation was requested due to his acute kidney injury/acute renal failure. From review his records, his baseline creatinine normally runs around 1.1 - 1.2 as far back as 2020. He does have risk factors for kidney disease in the form of hypertension, hyperlipidemia, gout, COPD, pulmonary hypertension, and age but as already mentioned, his renal function has been well preserved. It should be noted he is on several medications that could be culprits with regard to his renal dysfunction including lisinopril, allopurinol, hydrochlorothiazide, and torsemide. On further questioning of the patient and his , his lisinopril has been a longstanding medication since 2021; however he was started on allopurinol in June 2024, hydrochlorothiazide in July of 2024 and torsemide in August of 2024. his last labs in June of 2024 demonstrated his renal function was at baseline prior to these most recent labs in early December that demonstrated his elevated potassium level and acute kidney injury/ acute renal failure. Currently, at the time of my visit, he appears to be in no acute distress. Review of Systems 2 Review of Systems: As per HPI. [facility] Past Medical History Medical History (Updated 12/17/24 @ 17:11 by Bobby Lujan MD) Prediabetes Hyperlipidemia Leg wound, left Nicotine addiction Hypertension Pulmonary hypertension Left leg cellulitis COPD (chronic obstructive pulmonary disease) Surgical History Surgical History History of tonsillectomy Previous back surgery Rods and screws, 2001 Family History Family History Father Heart disease Mother Lung cancer Social History Social History Smoking packs per day: 1 Smoking cigarettes per day: 20.0 Years smoked: 45 Smoking pack-years: 45.00 Smoking status: Current every day smoker Tobacco type: e-cigarettes/vaping Second hand tobacco smoke exposure: Yes Smoking end date: 04/11/23 Alcohol intake: former Alcohol use details: weekends Substance use: never Substance use type: does not use Do You Feel Safe in your Home?: Yes Lack of Transportation: No Lack of Food: Never True Current Housing: I Have Housing Concerned About Future Housing: No Difficulty Paying Gas/Electric Bills: No Difficulty Paying for Meds: No Currently Unemployed: No Education: High School Diploma/GED Difficulty w/ Childcare or Family Care: No Living arrangements: with family Additional living arrangements comments: Occupation/Education: retired Spiritual care concerns: No Meds Home Medications and Allergies Home Medications ?Medication ?Instructions ?Recorded ?Confirmed ?Type budesonide 160 mcg-glycopyr 9 1 inh inhalation DAILY 04/07/21 12/16/24 History mcg-formot 4.8 mcg/actuation HFA inhaler (Breztri Aerosphere) ipratropium 0.5 mg-albuterol 3 mg 3 ml inhalation Q6-8H PRN 04/10/21 12/16/24 History (2.5 mg base)/3 mL nebulization shortness of breath soln aspirin 81 mg tablet,delayed 81 mg PO DAILY #90 tabs 07/17/23 12/16/24 Rx release (Enteric Coated Aspirin) lisinopril 40 mg tablet See Rx Instructions .Route 07/06/24 12/16/24 Rx .COMPLEX #90 tabs ipratropium 20 mcg-albuterol 100 1 puff inhalation QID PRN 07/07/24 12/16/24 History mcg/actuation mist for inhalation shortness of breath or wheezing (Combivent Respimat) hydrochlorothiazide 25 mg tablet 25 mg PO DAILY #90 tabs 07/13/24 12/16/24 Rx colchicine 0.6 mg capsule 0.6 mg PO DAILY PRN gout flare 07/23/24 12/16/24 Rx #180 caps atorvastatin 80 mg tablet See Rx Instructions .Route 09/11/24 12/16/24 Rx .COMPLEX #90 tabs metoprolol succinate 50 mg See Rx Instructions .Route 10/07/24 12/16/24 Rx tablet,extended release 24 hr .COMPLEX #90 tabs trazodone 50 mg tablet See Rx Instructions .Route 10/07/24 12/16/24 Rx .COMPLEX #30 tabs allopurinol 100 mg tablet 100 mg PO DAILY #90 tabs 11/25/24 12/16/24 Rx torsemide 20 mg tablet See Rx Instructions .Route 11/25/24 12/16/24 Rx .COMPLEX #90 tabs pantoprazole 40 mg tablet,delayed 40 mg PO QAM 6 weeks #42 tabs 12/15/24 12/16/24 Rx release budesonide 0.5 mg/2 mL suspension 0.5 mg inhalation Q12H PRN 12/16/24 12/16/24 History for nebulization shortness of breath or wheezing Allergies Allergy/AdvReac Type Severity Reaction Status Date / Time No Known Allergies Allergy Verified 12/16/24 13:59 Vital Signs Vital Signs Temp Pulse Resp BP Pulse Ox O2 Del Method 12/16/24 12:00 72 Room Air 12/16/24 11:13 98 F 67 16 135/55 L 100 12/16/24 10:01 64 17 126/49 L 91 12/16/24 09:31 64 19 146/65 H 99 12/16/24 09:24 76 19 147/70 H 100 12/16/24 09:24 81 12/16/24 08:54 97.6 F 76 20 147/70 H 100 Room Air Exam 2 Narrative: GENERAL APPEARANCE: well developed well nourished male in no acute distress HEENT: normocephalic, atraumatic, normal conjunctiva and sclera, nares patient NECK: no lymphadenopathy, thyromegaly, or JVD MOUTH: normal lips, teeth, and gums CARDIOVASCULAR: RRR, normal S1 and S2, no rub RESPIRATORY: clear to auscultation bilaterally ABDOMEN: soft, nontender, nondistended, positive bowel sounds present EXTREMITIES: no evidence of cyanosis, clubbing, or edema NEUROLOGICAL: alert and oriented x 3; CN II - XII intact bilaterally; no focal deficits noted Results Lab Results 12/17/24 06:15 12/17/24 06:15 Lab results: Most recent lab results Calcium 10.0 mg/dL (8.4-10.2) 12/16/24 14:07 Urine Creatinine 34.2 mg/dL 12/16/24 16:00 Urine Creatinine Cancelled 12/16/24 16:00
--- NOTE | 2024-12-16 13:16 | P.HP_ITS ---
H&P: HPI History of Present Illness Date/Time: 12/16/24 13:16 Chief Complaint: Abnormal labs Narrative: 69-year-old male past medical history of pulmonary hypertension, COPD, hypertension and hyperlipidemia who was sent to the hospital by his PCP for abnormal labs. On his lab work he had done yesterday his potassium was 5.7, shows PCP referred him to the emergency room for treatment. Patient states the other day that he was playing golf he could only do 9 rounds before he felt ill and went home. He states that while he was out playing golf he drinks sprite. He states that after golf he laid on the couch and was feeling ill so his made him appointment at the doctors. There he on lab work done. This morning he was called and told to go to the emergency room due to his potassium being high. Patient is also on lisinopril, allopurinol and hydrochlorothiazide. He denies nausea vomiting diarrhea, increased shortness of breath or increased coughing. In the ED has leukocytosis of 11.1, hemoglobin of 11.3, potassium of 6.2, creatinine of 2.50 with baseline being 1.2 BUN of 80, estimated GFR 26, carbon dioxide 17, anion gap 13, UA with no acute findings. Chest x-ray shows Stable c hronic blunting of the left costophrenic angle versus possibly small left pleural effusion. EKG shows sinus rhythm. In the ED he was given 2 L fluid bolus, calcium gluconate, 5 units of regular insulin, D50, bicarb and lokelma with repeat BMP pending. Nephrology was consulted. Review of Systems Review of Systems: 12 systems were reviewed and are negativ e except for as per HPI. [facility] Past Medical History Medical History Hyperlipidemia Hypertension Prediabetes Leg wound, left Nicotine addiction Pulmonary hypertension Left leg cellulitis COPD (chronic obstructive pulmonary disease) Surgical History Surgical History History of tonsillectomy Previous back surgery Rods and screws, 2001 Family History Family History Father Heart disease Mother Lung cancer Social History Social History Smoking packs per day: 1 Smoking cigarettes per day: 20.0 Years smoked: 45 Smoking pack-years: 45.00 Smoking status: Current every day smoker Tobacco type: e-cigarettes/vaping Second hand tobacco smoke exposure: Yes Smoking end date: 04/11/23 Alcohol intake: former Alcohol use details: weekends Substance use: never Substance use type: does not use Do You Feel Safe in your Home?: Yes Lack of Transportation: No Lack of Food: Never True Current Housing: I Have Housing Concerned About Future Housing: No Difficulty Paying Gas/Electric Bills: No Difficulty Paying for Meds: No Currently Unemployed: No Education: High School Diploma/GED Difficulty w/ Childcare or Family Care: No Living arrangements: with family Additional living arrangements comments: Occupation/Education: retired Spiritual care concerns: No Meds Home Medications and Allergies Home Medications ?Medication ?Instructions ?Recorded ?Confirmed ?Type budesonide 160 mcg-glycopyr 9 1 inh inhalation DAILY 04/07/21 12/16/24 History mcg-formot 4.8 mcg/actuation HFA inhaler (Breztri Aerosphere) ipratropium 0.5 mg-albuterol 3 mg 3 ml inhalation Q6-8H PRN 04/10/21 12/16/24 History (2.5 mg base)/3 mL nebulization shortness of breath soln aspirin 81 mg tablet,delayed 81 mg PO DAILY #90 tabs 07/17/23 12/16/24 Rx release (Enteric Coated Aspirin) lisinopril 40 mg tablet See Rx Instructions .Route 07/06/24 12/16/24 Rx .COMPLEX #90 tabs ipratropium 20 mcg-albuterol 100 1 puff inhalation QID PRN 07/07/24 12/16/24 History mcg/actuation mist for inhalation shortness of breath or wheezing (Combivent Respimat) hydrochlorothiazide 25 mg tablet 25 mg PO DAILY #90 tabs 07/13/24 12/16/24 Rx colchicine 0.6 mg capsule 0.6 mg PO DAILY PRN gout flare 07/23/24 12/16/24 Rx #180 caps atorvastatin 80 mg tablet See Rx Instructions .Route 09/11/24 12/16/24 Rx .COMPLEX #90 tabs metoprolol succinate 50 mg See Rx Instructions .Route 10/07/24 12/16/24 Rx tablet,extended release 24 hr .COMPLEX #90 tabs trazodone 50 mg tablet See Rx Instructions .Route 10/07/24 12/16/24 Rx .COMPLEX #30 tabs allopurinol 100 mg tablet 100 mg PO DAILY #90 tabs 11/25/24 12/16/24 Rx torsemide 20 mg tablet See Rx Instructions .Route 11/25/24 12/16/24 Rx .COMPLEX #90 tabs pantoprazole 40 mg tablet,delayed 40 mg PO QAM 6 weeks #42 tabs 12/15/24 12/16/24 Rx release budesonide 0.5 mg/2 mL suspension 0.5 mg inhalation Q12H PRN 12/16/24 12/16/24 History for nebulization shortness of breath or wheezing Allergies Allergy/AdvReac Type Severity Reaction Status Date / Time No Known Allergies Allergy Verified 12/16/24 13:59 Vital Signs Vital Signs - 24 hr 12/16/24 08:54 12/16/24 09:24 12/16/24 09:24 Temperature 97.6 F Pulse Rate 76 81 76 Respiratory Rate 20 19 Blood Pressure 147/70 H 147/70 H Pulse Oximetry 100 100 Oxygen Delivery Room Air 12/16/24 09:31 12/16/24 10:01 12/16/24 11:13 Temperature 98 F Pulse Rate 64 64 67 Respiratory Rate 19 17 16 Blood Pressure 146/65 H 126/49 L 135/55 L Pulse Oximetry 99 91 100 Oxygen Delivery 12/16/24 12:00 12/16/24 12:00 Temperature Pulse Rate 72 Respiratory Rate Blood Pressure Pulse Oximetry Oxygen Delivery Room Air Exam Narrative: General: well appearing, appears stated age. HEENT: normocephalic, atraumatic. Mucous membranes moist. EOMI, PERRLA, bilateral sclera anicteric, no conjunctival injection. Neck supple without JVD, lymphadenopathy, or bruit. Respiratory: clear to ascultation bilaterally. No rales/rhonic/wheezes. Cardiovascular: Regular rate and rhythm, normal S1-S2 upon ascultation. No murmurs, rubs, or clicks. PMI is nondisplaced, capillary refill less than 3 second. Abdomen: Soft, round, no pulsatile masses, nondistended and nontender. No rebound, no guarding. No CVA tenderness, no hepatosplenomegaly. Bowel sounds present to all four quadrants. No high pitch or tinkling sounds, resonant to percussion. Extremities: No cyanosis, clubbing, or edema present. Pulses are palpable 2/2. Active ROM to all four extremities. Neuro: Alert and orientated x 4. PERRLA. Cranial nerves 2-12 intact without focal deficit. Skin: Warm, dry, and intact, without rash, erythema, or lesion. Psych: pleasant, cooperative, normal speech, normal affect, no hallucinations, no dysarthia H&P: Results Labs Labs: Short CBC 12/16/24 Range/Units 09:01 WBC 11.1 H (4.5-10.0) K/mm3 Hgb 11.3 L (14.0-18.0) g/dL Hct 35.5 L (42.0-52.0) % Plt Count 293 (150-375) k/mm3 BMP 12/16/24 12/16/24 12/16/24 09:01 09:01 09:01 Sodium Cancelled 138 Potassium Cancelled 6.2 H* Chloride Cancelled Carbon Dioxide BUN Creatinine Glucose Calcium 12/16/24 12/16/24 12/16/24 09:01 09:01 09:01 Sodium Potassium Chloride 108 H Carbon Dioxide Cancelled 17 L BUN Cancelled 80 H Creatinine Cancelled Glucose Calcium 12/16/24 12/16/24 12/16/24 09:01 09:01 09:01 Sodium Potassium Chloride Carbon Dioxide BUN Creatinine 2.50 H Glucose Cancelled 127 H Calcium Cancelled 10.2 Cardiac Enzymes 12/16/24 Range/Units 09:01 Total Creatine Kinase 65 (55-170) U/L Troponin I < 0.012 (0.000-0.034) ng/mL Liver Function 12/16/24 12/16/24 12/16/24 Range/Units 09:01 09:01 09:01 Total Bilirubin Cancelled 0.3 AST Cancelled 21 ALT Cancelled Alkaline Phosphatase Albumin 12/16/24 12/16/24 12/16/24 Range/Units 09:01 09:01 09:01 Total Bilirubin AST ALT 19 Alkaline Phosphatase Cancelled 95 Albumin Cancelled 4.5 Urine 12/16/24 Range/Units 09:39 Urine Color Yellow (Yellow) Urine Appearance Clear (Clear) Urine pH 5.0 (5.0-9.0) Ur Specific Clarita 1.007 (1.001-1.035) Urine Protein Negative (Negative) mg/dL Urine Glucose (UA) Negative (Negative) mg/dL Assessment and Plan Assessment and plan (1) Acute hyperkalemia: Code(s): E87.5 - Hyperkalemia Status: Acute Assessment and Plan: Hyperkalemia protocol Telemetry Repeat BMP at 2:00 p.m. (2) Acute renal failure: Code(s): N17.9 - Acute kidney failure, unspecified Status: Acute Assessment and Plan: Could be due to dehydration with nephrotoxic medications Nephrology consulted Fluid bolus and IV half Renal diet Hold lisinopril, allopurinol, torsemide and hydrochlorothiazide (3) Acute dehydration: Code(s): E86.0 - Dehydration Status: Acute Assessment and Plan: 2 L IV fluid given in the ED IVF for hydration (4) Hypertension: Code(s): I10 - Essential (primary) hypertension Status: Acute Assessment and Plan: Hold hydrochlorothiazide and lisinopril due to acute dehydration and KALANI (5) (HFpEF) heart failure with preserved ejection fraction: Code(s): I50.30 - Unspecified diastolic (congestive) heart failure Status: Acute Assessment and Plan: Hold torsemide Monitor for pulmonary edema (6) Hyperlipidemia: Code(s): E78.5 - Hyperlipidemia, unspecified Status: Acute (7) Gout: Qualifiers: Chronicity: acute Gout etiology: unspecified cause Gout site: toe Laterality: left Qualified Code(s): M10.9 - Gout, unspecified Code(s): M10.9 - Gout, unspecified Status: Acute Assessment and Plan: Hold allopurinol due to KALANI (8) COPD (chronic obstructive pulmonary disease): Code(s): J44.9 - Chronic obstructive pulmonary disease, unspecified Status: Acute Assessment and Plan: Continue home inhalers Patient denies increased shortness of breath and coughing Quality VTE Prophylaxis VTE prophylaxis: mechanical ordered Hospitalist MIPS Advance Care Plan I have confirmed that the patient's Advanced Care Plan is present, code status is documented, or surrogate decision maker is listed in patient medical record.: Yes Medication Reconciliation I have utilized all available resources to obtain, update and review the patients current medications (includes all prescriptions, OTC, herbals, cannabis, and nutritional supplements).: Yes
[2024-12-16 14:34] LABS: Anion Gap 8 mmol/L (4-12); Blood Urea Nitrogen 76 mg/dL (9-20); Carbon Dioxide 19 mmol/L (22-30); Chloride 109 mmol/L (98-107); Estimated CRCL calculation 37 ml/min; Estimated Glomerular Filt Rate 32; Glucose 183 mg/dL (65-110); Potassium 5.6 mmol/L (3.4-5.0); Sodium 136 mmol/L (137-145)
[2024-12-16 16:45] LABS: Creatinine Urine 34.2 mg/dL; Total Protein Urine Random 6 mg/dL; Ur Ttl Prot Creatinine Ratio 0.18 mg/mg (0-0.20)
[2024-12-16 16:47] LABS: Urea Random Urine 461 MG/DL
[2024-12-16 16:48] LABS: Sodium Urine Random 83 meq/L
[2024-12-16 16:49] LABS: Eosinophil Urine None Seen % (None Seen); Urine Eos QC 2nd Tech Confirmed
[2024-12-16] MEDS: IPRATROPIUM 0.5 MG/ALBUTEROL SULFATE 2.5 MG AMPUL.NEB 3 ML INHALATION (17:29)
[2024-12-16 19:12] LABS: Anion Gap 10 mmol/L (4-12); Blood Urea Nitrogen 70 mg/dL (9-20); Carbon Dioxide 20 mmol/L (22-30); Chloride 108 mmol/L (98-107); Estimated CRCL calculation 37 ml/min; Estimated Glomerular Filt Rate 33; Sodium 138 mmol/L (137-145)
[2024-12-16 19:16] LABS: Calcium 9.6 mg/dL (8.4-10.2); Glucose 113 mg/dL (65-110)
[2024-12-17] VITALS (17 sets, daily range): BP systolic 122–145; BP diastolic 55–66; PULSE 54–110; RESP 16–20; TEMP 36.5–36.9; O2SAT 94–100
[2024-12-17] MEDS: LACTATED RINGERS 1,000 ML 125 ML IV CONT ×3 (03:44→20:15)
[2024-12-17] MEDS: IPRATROPIUM 0.5 MG/ALBUTEROL SULFATE 2.5 MG AMPUL.NEB 3 ML INHALATION ×2 (05:40→20:30)
[2024-12-17 06:21] LABS: Hemoglobin 10.1 g/dL (14.0-18.0); Mean Corpuscular HGB Conc 33.7 g/dl (32-36); Mean Corpuscular Hemoglobin 31.8 pg (26-34); Mean Corpuscular Volume 94.3 fl (80-100); Mean Platelet Volume 8.7 fl (7.4-10.4); Platelet Count Result 247 k/mm3 (150-375); Red Blood Count 3.18 M/mm3 (4.6-6.20); Red Cell Distribution Width 14.3 % (11.5-14.5); White Blood Count 9.4 K/mm3 (4.5-10.0)
[2024-12-17 06:35] LABS: Anion Gap 8 mmol/L (4-12); Blood Urea Nitrogen 57 mg/dL (9-20); Calcium 9.3 mg/dL (8.4-10.2); Carbon Dioxide 24 mmol/L (22-30); Chloride 108 mmol/L (98-107); Estimated CRCL calculation 43 ml/min; Estimated Glomerular Filt Rate 39; Glucose 97 mg/dL (65-110); Potassium 4.1 mmol/L (3.4-5.0); Sodium 140 mmol/L (137-145)
--- NOTE | 2024-12-17 08:01 | PM.IMPN ---
Progress Note: A&P Assessment and Plan (1) Acute hyperkalemia: Code(s): E87.5 - Hyperkalemia Status: Acute Assessment and Plan: Hyperkalemia protocol Telemetry Repeat BMP at 2:00 p.m. (2) Acute renal failure: Code(s): N17.9 - Acute kidney failure, unspecified Status: Acute Assessment and Plan: Could be due to dehydration with nephrotoxic medications Nephrology consulted Fluid bolus and IV half Renal diet Hold lisinopril, allopurinol, torsemide and hydrochlorothiazide (3) Acute dehydration: Code(s): E86.0 - Dehydration Status: Acute Assessment and Plan: 2 L IV fluid given in the ED IVF for hydration (4) Hypertension: Code(s): I10 - Essential (primary) hypertension Status: Acute Assessment and Plan: Hold hydrochlorothiazide and lisinopril due to acute dehydration and KALANI (5) (HFpEF) heart failure with preserved ejection fraction: Code(s): I50.30 - Unspecified diastolic (congestive) heart failure Status: Acute Assessment and Plan: Hold torsemide Monitor for pulmonary edema echo performed on 09/15/2024: Left ventricular systolic function is normal, estimated at 60-65%. (6) Hyperlipidemia: Code(s): E78.5 - Hyperlipidemia, unspecified Status: Acute (7) Gout: Qualifiers: Chronicity: acute Gout etiology: unspecified cause Gout site: toe Laterality: left Qualified Code(s): M10.9 - Gout, unspecified Code(s): M10.9 - Gout, unspecified Status: Acute Assessment and Plan: Hold allopurinol due to KALANI (8) COPD (chronic obstructive pulmonary disease): Code(s): J44.9 - Chronic obstructive pulmonary disease, unspecified Status: Acute Assessment and Plan: Continue home inhalers Patient denies increased shortness of breath and coughing Subjective Date/time seen: 12/17/24 08:01 Interval history: Patient was evaluated the bedside. Patient is currently doing well. Creatinine is improving after the IV fluid. Patient history of COPD for which he follows with the . Discussed with the public relations professional who agrees to stay for another night to trend the creatinine. Review of Systems Review of Systems: 12 systems were reviewed and are negative except for as per HPI. Exam Narrative: General: well appearing, appears stated age. HEENT: normocephalic, atraumatic. Mucous membranes moist. EOMI, PERRLA, bilateral sclera anicteric, no conjunctival injection. Neck supple without JVD, lymphadenopathy, or bruit. Respiratory: clear to ascultation bilaterally. No rales/rhonic/wheezes. Cardiovascular: Regular rate and rhythm, normal S1-S2 upon ascultation. No murmurs, rubs, or clicks. PMI is nondisplaced, capillary refill less than 3 second. Abdomen: Soft, round, no pulsatile masses, nondistended and nontender. No rebound, no guarding. No CVA tenderness, no hepatosplenomegaly. Bowel sounds present to all four quadrants. No high pitch or tinkling sounds, resonant to percussion. Extremities: No cyanosis, clubbing, or edema present. Pulses are palpable 2/2. Active ROM to all four extremities. Neuro: Alert and orientated x 4. PERRLA. Cranial nerves 2-12 intact without focal deficit. Skin: Warm, dry, and intact, without rash, erythema, or lesion. Psych: pleasant, cooperative, normal speech, normal affect, no hallucinations, no dysarthia Objective Data Vital Signs Vital Signs: Vital Signs - 24 hr 12/16/24 08:54 12/16/24 09:24 12/16/24 09:24 Temperature 97.6 F Pulse Rate 76 81 76 Respiratory Rate 20 19 Blood Pressure 147/70 H 147/70 H Pulse Oximetry 100 100 Oxygen Delivery Room Air 12/16/24 09:31 12/16/24 10:01 12/16/24 11:13 Temperature 98 F Pulse Rate 64 64 67 Respiratory Rate 19 17 16 Blood Pressure 146/65 H 126/49 L 135/55 L Pulse Oximetry 99 91 100 Oxygen Delivery 12/16/24 12:00 12/16/24 12:00 12/16/24 14:00 Temperature Pulse Rate 72 74 Respiratory Rate Blood Pressure Pulse Oximetry Oxygen Delivery Room Air 12/16/24 16:00 12/16/24 16:00 12/16/24 16:00 Temperature 98.2 F Pulse Rate 75 74 Respiratory Rate 18 Blood Pressure 131/57 L Pulse Oximetry 100 Oxygen Delivery Room Air 12/16/24 17:30 12/16/24 18:00 12/16/24 19:54 Temperature Pulse Rate 74 81 Respiratory Rate 16 Blood Pressure Pulse Oximetry Oxygen Delivery Room Air 12/16/24 20:00 12/16/24 20:00 12/16/24 21:54 Temperature 98.2 F Pulse Rate 84 67 67 Respiratory Rate 16 Blood Pressure 137/48 L Pulse Oximetry 100 96 Oxygen Delivery CPAP 12/16/24 22:00 12/16/24 23:05 12/17/24 00:00 Temperature 97.8 F Pulse Rate 81 71 Respiratory Rate 16 Blood Pressure 122/55 L Pulse Oximetry 100 Oxygen Delivery Room Air 12/17/24 00:00 12/17/24 02:00 12/17/24 03:48 Temperature Pulse Rate 61 60 Respiratory Rate Blood Pressure Pulse Oximetry Oxygen Delivery Room Air 12/17/24 04:00 12/17/24 04:00 12/17/24 05:50 Temperature 97.7 F Pulse Rate 56 L 54 L 66 Respiratory Rate 16 16 Blood Pressure 124/62 Pulse Oximetry 100 Oxygen Delivery 12/17/24 06:00 12/17/24 06:00 12/17/24 07:55 Temperature 98.0 F Pulse Rate 68 66 77 Respiratory Rate 16 20 Blood Pressure 133/66 Pulse Oximetry 99 Oxygen Delivery Intake/Output Intake/Output: Intake & Output 12/14/24 12/15/24 12/16/24 12/17/24 23:59 23:59 23:59 23:59 Intake Total 3425.8 1250 Output Total 2100 550 Balance 1325.8 700 Meds/Results Medications: Active Medications Generic Name Dose Route Start Last Admin Trade Name Freq PRN Reason Stop Dose Admin Albuterol/Ipratropium 3 ml 12/16/24 13:37 12/17/24 05:40 Ipratropium 0.5 Mg/Albuterol Sulfate 2.5 Mg Ampul.Neb 3 Ml INHALATION 3 ml Q6-8H PRN Administration shortness of breath Aspirin 81 mg 12/17/24 09:00 Aspirin 81 Mg Enteric Tablet PO DAILY [facility] Atorvastatin Calcium 80 mg 12/17/24 21:00 Atorvastatin 40 Mg Tablet BY MOUTH QHS [facility] Budesonide 0.5 mg 12/16/24 23:02 Budesonide Respule Neb 0.5 Mg/2 Ml Amp INHALATION Q12HRT PRN shortness of breath or wheezin Dextrose 12.5 gm 12/16/24 15:45 Dextrose 50% 25 Gm/50 Ml Syringe IV PUSH PRN PRN Hypoglycemia Protocol Fluticasone/Umeclidinium/Vilanterol 1 puff 12/17/24 09:00 Fluticasone/Umeclidin/Vilanter 100-62.5-25 Mcg Ellipta INHALATION DAILY CHARISSE Glucose 15 gm 12/16/24 15:45 Glucose Oral Gel 15 Gm Of Glucse In 37.5 Gm Tube PO PRN PRN Hypoglycemia Protocol Lactated Ringer's 1,000 mls @ 125 mls/hr 12/16/24 10:15 12/17/24 03:44 Lr - Lactated Ringers Iv IV CONT 125 mls/hr .Q8H CHARISSE Administration Dextrose 1,000 mls @ 100 mls/hr 12/16/24 15:45 Dextrose 5% 1,000 Ml IVPB PRN PRN Hypoglycemia Protocol Metoprolol Succinate 50 mg 12/17/24 09:00 Metoprolol Succinate Ext Rel 50 Mg Tabcr BY MOUTH QAM CHARISSE Pantoprazole Sodium 40 mg 12/17/24 09:00 Pantoprazole 40 Mg Tablet PO QAM CHARISSE Sodium Zirconium Cyclosilicate 10 gm 12/16/24 15:15 12/16/24 22:26 Sodium Zirconium Cyclosilicate 10 Gm Powd.Pack PO 10 gm TID@1000,1500,2200 CHARISSE Administration Trazodone HCl 50 mg 12/16/24 23:00 Trazodone Hcl 50 Mg Tablet BY MOUTH HS PRN Sleep Radiology Results: ITS Impressions Chest X-Ray 12/16/24 09:52 Impression: Stable chronic blunting of the left costophrenic angle versus possibly small left pleural effusion. Renal Ultrasound 12/16/24 16:06 IMPRESSION: No hydronephrosis or renal calculi. Findings suggesting medical renal disease. Labs Labs: Laboratory Results - last 24 hr 12/16/24 12/16/24 12/16/24 09:01 09:01 09:01 WBC 11.1 H RBC 3.67 L Hgb 11.3 L Hct 35.5 L MCV 96.7 MCH 30.8 MCHC 31.8 L RDW 14.4 Plt Count 293 MPV 9.1 Immature Gran % (Auto) 0.5 Neut % (Auto) 94.0 H Lymph % (Auto) 2.9 L Cochran % (Auto) 0.8 L Eos % (Auto) 1.3 Baso % (Auto) 0.5 Lymph # (Auto) 0.32 L Cochran # (Auto) 0.1 Eos # (Auto) 0.1 Baso # (Auto) 0.1 Abs Immat Gran (auto) 0.05 H Absolute Neuts (auto) 10.4 H Absolute Nucleated RBC 0.000 Nucleated RBC % 0.0 Sodium Cancelled 138 Potassium Cancelled 6.2 H* Chloride Cancelled Carbon Dioxide Anion Gap BUN Creatinine Estim Creat Clear Calc Estimated GFR Glucose POC Capillary Glucose Calcium Total Bilirubin AST ALT Alkaline Phosphatase Total Creatine Kinase Troponin I Total Protein Albumin Urine Color Urine Appearance Urine pH Ur Specific Justin Urine Protein Urine Glucose (UA) Urine Ketones Ur Blood (Man) Urine Nitrate Urine Bilirubin Urine Urobilinogen Leukocyte Esterase Rfl Urine Eosinophils U Random Total Protein Ur Random Sodium Ur Random Urea Urine Total Volume Urine Creatinine Protein/Creat Ratio 2 12/16/24 12/16/24 12/16/24 09:01 09:01 09:01 WBC RBC Hgb Hct MCV MCH MCHC RDW Plt Count MPV Immature Gran % (Auto) Neut % (Auto) Lymph % (Auto) Cochran % (Auto) Eos % (Auto) Baso % (Auto) Lymph # (Auto) Cochran # (Auto) Eos # (Auto) Baso # (Auto) Abs Immat Gran (auto) Absolute Neuts (auto) Absolute Nucleated RBC Nucleated RBC % Sodium Potassium Chloride 108 H Carbon Dioxide Cancelled 17 L Anion Gap Cancelled 13 H BUN Cancelled Creatinine Estim Creat Clear Calc Estimated GFR Glucose POC Capillary Glucose Calcium Total Bilirubin AST ALT Alkaline Phosphatase Total Creatine Kinase Troponin I Total Protein Albumin Urine Color Urine Appearance Urine pH Ur Specific Justin Urine Protein Urine Glucose (UA) Urine Ketones Ur Blood (Man) Urine Nitrate Urine Bilirubin Urine Urobilinogen Leukocyte Esterase Rfl Urine Eosinophils U Random Total Protein Ur Random Sodium Ur Random Urea Urine Total Volume Urine Creatinine Protein/Creat Ratio 2 12/16/24 12/16/24 12/16/24 09:01 09:01 09:01 WBC RBC Hgb Hct MCV MCH MCHC RDW Plt Count MPV Immature Gran % (Auto) Neut % (Auto) Lymph % (Auto) Cochran % (Auto) Eos % (Auto) Baso % (Auto) Lymph # (Auto) Cochran # (Auto) Eos # (Auto) Baso # (Auto) Abs Immat Gran (auto) Absolute Neuts (auto) Absolute Nucleated RBC Nucleated RBC % Sodium Potassium Chloride Carbon Dioxide Anion Gap BUN 80 H Creatinine Cancelled 2.50 H Estim Creat Clear Calc Cancelled 28 Estimated GFR Cancelled Glucose POC Capillary Glucose Calcium Total Bilirubin AST ALT Alkaline Phosphatase Total Creatine Kinase Troponin I Total Protein Albumin Urine Color Urine Appearance Urine pH Ur Specific Justin Urine Protein Urine Glucose (UA) Urine Ketones Ur Blood (Man) Urine Nitrate Urine Bilirubin Urine Urobilinogen Leukocyte Esterase Rfl Urine Eosinophils U Random Total Protein Ur Random Sodium Ur Random Urea Urine Total Volume Urine Creatinine Protein/Creat Ratio 2 12/16/24 12/16/24 12/16/24 09:01 09:01 09:01 WBC RBC Hgb Hct MCV MCH MCHC RDW Plt Count MPV Immature Gran % (Auto) Neut % (Auto) Lymph % (Auto) Cochran % (Auto) Eos % (Auto) Baso % (Auto) Lymph # (Auto) Cochran # (Auto) Eos # (Auto) Baso # (Auto) Abs Immat Gran (auto) Absolute Neuts (auto) Absolute Nucleated RBC Nucleated RBC % Sodium Potassium Chloride Carbon Dioxide Anion Gap BUN Creatinine Estim Creat Clear Calc Estimated GFR 26 L Glucose Cancelled 127 H POC Capillary Glucose Calcium Cancelled 10.2 Total Bilirubin Cancelled AST ALT Alkaline Phosphatase Total Creatine Kinase Troponin I Total Protein Albumin Urine Color Urine Appearance Urine pH Ur Specific Justin Urine Protein Urine Glucose (UA) Urine Ketones Ur Blood (Man) Urine Nitrate Urine Bilirubin Urine Urobilinogen Leukocyte Esterase Rfl Urine Eosinophils U Random Total Protein Ur Random Sodium Ur Random Urea Urine Total Volume Urine Creatinine Protein/Creat Ratio 2 12/16/24 12/16/24 12/16/24 09:01 09:01 09:01 WBC RBC Hgb Hct MCV MCH MCHC RDW Plt Count MPV Immature Gran % (Auto) Neut % (Auto) Lymph % (Auto) Cochran % (Auto) Eos % (Auto) Baso % (Auto) Lymph # (Auto) Cochran # (Auto) Eos # (Auto) Baso # (Auto) Abs Immat Gran (auto) Absolute Neuts (auto) Absolute Nucleated RBC Nucleated RBC % Sodium Potassium Chloride Carbon Dioxide Anion Gap BUN Creatinine Estim Creat Clear Calc Estimated GFR Glucose POC Capillary Glucose Calcium Total Bilirubin 0.3 AST Cancelled 21 ALT Cancelled 19 Alkaline Phosphatase Cancelled Total Creatine Kinase Troponin I Total Protein Albumin Urine Color Urine Appearance Urine pH Ur Specific Justin Urine Protein Urine Glucose (UA) Urine Ketones Ur Blood (Man) Urine Nitrate Urine Bilirubin Urine Urobilinogen Leukocyte Esterase Rfl Urine Eosinophils U Random Total Protein Ur Random Sodium Ur Random Urea Urine Total Volume Urine Creatinine Protein/Creat Ratio 2 12/16/24 12/16/24 12/16/24 09:01 09:01 09:01 WBC RBC Hgb Hct MCV MCH MCHC RDW Plt Count MPV Immature Gran % (Auto) Neut % (Auto) Lymph % (Auto) Cochran % (Auto) Eos % (Auto) Baso % (Auto) Lymph # (Auto) Cochran # (Auto) Eos # (Auto) Baso # (Auto) Abs Immat Gran (auto) Absolute Neuts (auto) Absolute Nucleated RBC Nucleated RBC % Sodium Potassium Chloride Carbon Dioxide Anion Gap BUN Creatinine Estim Creat Clear Calc Estimated GFR Glucose POC Capillary Glucose Calcium Total Bilirubin AST ALT Alkaline Phosphatase 95 Total Creatine Kinase 65 Troponin I < 0.012 Total Protein Cancelled 8.0 Albumin Cancelled 4.5 Urine Color Urine Appearance Urine pH Ur Specific Justin Urine Protein Urine Glucose (UA) Urine Ketones Ur Blood (Man) Urine Nitrate Urine Bilirubin Urine Urobilinogen Leukocyte Esterase Rfl Urine Eosinophils U Random Total Protein Ur Random Sodium Ur Random Urea Urine Total Volume Urine Creatinine Protein/Creat Ratio 2 12/16/24 12/16/24 12/16/24 09:39 10:57 14:07 WBC RBC Hgb Hct MCV MCH MCHC RDW Plt Count MPV Immature Gran % (Auto) Neut % (Auto) Lymph % (Auto) Cochran % (Auto) Eos % (Auto) Baso % (Auto) Lymph # (Auto) Cochran # (Auto) Eos # (Auto) Baso # (Auto) Abs Immat Gran (auto) Absolute Neuts (auto) Absolute Nucleated RBC Nucleated RBC % Sodium 136 L Potassium 5.6 H Chloride 109 H Carbon Dioxide 19 L Anion Gap 8 BUN 76 H Creatinine 2.05 H Estim Creat Clear Calc 37 Estimated GFR 32 L Glucose 183 H POC Capillary Glucose 103 Calcium 10.0 Total Bilirubin AST ALT Alkaline Phosphatase Total Creatine Kinase Troponin I Total Protein Albumin Urine Color Yellow Urine Appearance Clear Urine pH 5.0 Ur Specific Justin 1.007 Urine Protein Negative Urine Glucose (UA) Negative Urine Ketones Negative Ur Blood (Man) Negative Urine Nitrate Negative Urine Bilirubin Negative Urine Urobilinogen 0.2 Leukocyte Esterase Rfl Negative Urine Eosinophils U Random Total Protein Ur Random Sodium Ur Random Urea Urine Total Volume Urine Creatinine Protein/Creat Ratio 2 12/16/24 12/16/24 12/16/24 16:00 16:00 16:00 WBC RBC Hgb Hct MCV MCH MCHC RDW Plt Count MPV Immature Gran % (Auto) Neut % (Auto) Lymph % (Auto) Cochran % (Auto) Eos % (Auto) Baso % (Auto) Lymph # (Auto) Cochran # (Auto) Eos # (Auto) Baso # (Auto) Abs Immat Gran (auto) Absolute Neuts (auto) Absolute Nucleated RBC Nucleated RBC % Sodium Potassium Chloride Carbon Dioxide Anion Gap BUN Creatinine Estim Creat Clear Calc Estimated GFR Glucose POC Capillary Glucose Calcium Total Bilirubin AST ALT Alkaline Phosphatase Total Creatine Kinase Troponin I Total Protein Albumin Urine Color Urine Appearance Urine pH Ur Specific Justin Urine Protein Urine Glucose (UA) Urine Ketones Ur Blood (Man) Urine Nitrate Urine Bilirubin Urine Urobilinogen Leukocyte Esterase Rfl Urine Eosinophils U Random Total Protein 6 Cancelled Ur Random Sodium 83 Ur Random Urea 461 Urine Total Volume Cancelled Urine Creatinine 34.2 Cancelled Protein/Creat Ratio 2 0.18 12/16/24 12/16/24 12/17/24 16:01 18:49 06:15 WBC 9.4 RBC 3.18 L Hgb 10.1 L Hct 30.0 L MCV 94.3 MCH 31.8 MCHC 33.7 RDW 14.3 Plt Count 247 MPV 8.7 Immature Gran % (Auto) Neut % (Auto) Lymph % (Auto) Cochran % (Auto) Eos % (Auto) Baso % (Auto) Lymph # (Auto) Cochran # (Auto) Eos # (Auto) Baso # (Auto) Abs Immat Gran (auto) Absolute Neuts (auto) Absolute Nucleated RBC Nucleated RBC % Sodium 138 140 Potassium 5.0 4.1 Chloride 108 H 108 H Carbon Dioxide 20 L 24 Anion Gap 10 8 BUN 70 H 57 H D Creatinine 2.03 H 1.73 H Estim Creat Clear Calc 37 43 Estimated GFR 33 L 39 L Glucose 113 H 97 POC Capillary Glucose Calcium 9.6 9.3 Total Bilirubin AST ALT Alkaline Phosphatase Total Creatine Kinase Troponin I Total Protein Albumin Urine Color Urine Appearance Urine pH Ur Specific Justin Urine Protein Urine Glucose (UA) Urine Ketones Ur Blood (Man) Urine Nitrate Urine Bilirubin Urine Urobilinogen Leukocyte Esterase Rfl Urine Eosinophils None seen U Random Total Protein Ur Random Sodium Ur Random Urea Urine Total Volume Urine Creatinine Protein/Creat Ratio 2 Quality VTE Prophylaxis VTE prophylaxis: mechanical ordered Hospitalist MIPS Advance Care Plan I have confirmed that the patient's Advanced Care Plan is present, code status is documented, or surrogate decision maker is listed in patient medical record.: Yes Medication Reconciliation I have utilized all available resources to obtain, update and review the patients current medications (includes all prescriptions, OTC, herbals, cannabis, and nutritional supplements).: Yes
[2024-12-17] MEDS: PANTOPRAZOLE 40 MG TABLET PO (09:01)
[2024-12-17] MEDS: METOPROLOL SUCCINATE EXT REL 50 MG TABCR BY MOUTH (09:01)
[2024-12-17] MEDS: ASPIRIN 81 MG ENTERIC TABLET PO (09:02)
[2024-12-17] MEDS: BUDESONIDE RESPULE NEB 0.5 MG/2 ML AMP INHALATION ×2 (10:17→20:31)
--- NOTE | 2024-12-17 12:03 | P.PNNP_ITS ---
Progress Note: A&P Assessment and Plan (1) Acute kidney injury: Code(s): N17.9 - Acute kidney failure, unspecified Status: Acute Assessment and Plan: * improvement noted * as noted by admission labs * baseline creatinine runs around 1.1 - 1.2mg/dl * suspect multifactorial etiology: * prerenal factors * diuretic use (HCTZ and torsemide) * KATIE-I use * other(?) * continue trial of IVFs as volume status tolerates * evaluation to date noted: * renal ultrasound normal (but suggestive of CKD) * urine eosinophils negative * UA sediment bland * urine electrolytes non-prerenal * no significant proteinuria * CPK normal * follow trend of repeat labs and UOP (2) Hyperkalemia: Code(s): E87.5 - Hyperkalemia Status: Acute Assessment and Plan: * resolved * noted by outpatinet labs and worse on admission * presumably secondary to #1 * s/p medical management in ER * follow trend of repeat K+ levels (3) Hypertension: Code(s): I10 - Essential (primary) hypertension Status: Chronic Assessment and Plan: * reasonable control * lisinopril and diuretics on hold * follow trend of hemodynamics (4) Anemia: Code(s): D64.9 - Anemia, unspecified Status: Acute Assessment and Plan: * probably due to KALANI/ARF * possible dilutional effect for IVFs playing a role (?) * follow trend of H/H (5) Metabolic acidosis: Code(s): E87.20 - Acidosis, unspecified Status: Acute Assessment and Plan: * resolved * due to KALANI/ARF * follow trend of CO2 readings (6) COPD (chronic obstructive pulmonary disease): Code(s): J44.9 - Chronic obstructive pulmonary disease, unspecified Status: Chronic Assessment and Plan: * continue home inhalers * nebulizer treatments PRN Will continue to follow. L Subjective Date/time seen: 12/17/24 12:03 Interval history: Follow-up for acute kidney injury/acute renal failure. Renal function/creatinine appears to be improving with current therapy/interventions; potassium has normalized as well; no apparent distress voiced at the time of my visit; no other issues/events overnight or aearlier this morning; asking me about potential discharge. Exam 2 Narrative: General: elderly but WD/WN male in NAD Heart: normal S1 and S2; no rub Lungs: clear to auscultation Abdomen: soft, nontender, nondistended, positive bowel sounds Extremities: no cyanosis or clubbing; no edema Skin: warm and dry Objective Data Vital Signs Vital Signs: Vital Signs Temp Pulse Resp BP Pulse Ox O2 Del Method 12/17/24 11:57 98.4 F 72 17 129/61 97 12/17/24 10:25 82 20 12/17/24 10:19 85 20 12/17/24 10:00 74 12/17/24 09:01 79 12/17/24 08:17 94 Room Air 12/17/24 08:00 69 12/17/24 07:55 98.0 F 77 20 133/66 99 12/17/24 06:00 66 12/17/24 06:00 68 16 12/17/24 05:50 66 16 12/17/24 04:00 54 L 12/17/24 04:00 97.7 F 56 L 16 124/62 100 12/17/24 03:48 Room Air 12/17/24 02:00 60 12/17/24 00:00 61 12/17/24 00:00 97.8 F 71 16 122/55 L 100 12/16/24 23:05 Room Air 12/16/24 22:00 81 12/16/24 21:54 67 96 CPAP 12/16/24 20:00 67 12/16/24 20:00 98.2 F 84 16 137/48 L 100 12/16/24 19:54 Room Air 12/16/24 18:00 81 12/16/24 17:30 74 16 Intake/Output Intake/Output: Intake & Output 12/14/24 12/15/24 12/16/24 12/17/24 23:59 23:59 23:59 23:59 Intake Total 3425.8 2910 Output Total 2100 2000 Balance 1325.8 910 Meds/Results Medications: Active Medications Generic Name Dose Route Start Last Admin Trade Name Freq PRN Reason Stop Dose Admin Albuterol/Ipratropium 3 ml 12/16/24 13:37 12/17/24 05:40 Ipratropium 0.5 Mg/Albuterol Sulfate 2.5 Mg Ampul.Neb 3 Ml INHALATION 3 ml Q6-8H PRN Administration shortness of breath Aspirin 81 mg 12/17/24 09:00 12/17/24 09:02 Aspirin 81 Mg Enteric Tablet PO 81 mg DAILY CHARISSE Administration Atorvastatin Calcium 80 mg 12/17/24 21:00 Atorvastatin 40 Mg Tablet BY MOUTH QHS CHARISSE Budesonide 0.5 mg 12/17/24 20:00 Budesonide Respule Neb 0.5 Mg/2 Ml Amp INHALATION Q12HRT CHARISSE Dextrose 12.5 gm 12/16/24 15:45 Dextrose 50% 25 Gm/50 Ml Syringe IV PUSH PRN PRN Hypoglycemia Protocol Fluticasone/Umeclidinium/Vilanterol 1 puff 12/17/24 09:00 12/17/24 08:19 Fluticasone/Umeclidin/Vilanter 100-62.5-25 Mcg Ellipta INHALATION Not Given DAILY CHARISSE Glucose 15 gm 12/16/24 15:45 Glucose Oral Gel 15 Gm Of Glucse In 37.5 Gm Tube PO PRN PRN Hypoglycemia Protocol Lactated Ringer's 1,000 mls @ 125 mls/hr 12/16/24 10:15 12/17/24 11:44 Lr - Lactated Ringers Iv IV CONT 125 mls/hr .Q8H CHARISSE Administration Dextrose 1,000 mls @ 100 mls/hr 12/16/24 15:45 Dextrose 5% 1,000 Ml IVPB PRN PRN Hypoglycemia Protocol Metoprolol Succinate 50 mg 12/17/24 09:00 12/17/24 09:01 Metoprolol Succinate Ext Rel 50 Mg Tabcr BY MOUTH 50 mg QAM CHARISSE Administration Pantoprazole Sodium 40 mg 12/17/24 09:00 12/17/24 09:01 Pantoprazole 40 Mg Tablet PO 40 mg QAM CHARISSE Administration Trazodone HCl 50 mg 12/16/24 23:00 Trazodone Hcl 50 Mg Tablet BY MOUTH HS PRN Sleep Radiology Results: ITS Impressions Chest X-Ray 12/16/24 09:52 Impression: Stable chronic blunting of the left costophrenic angle versus possibly small left pleural effusion. Renal Ultrasound 12/16/24 16:06 IMPRESSION: No hydronephrosis or renal calculi. Findings suggesting medical renal disease. Labs Labs: Laboratory Tests 12/17/24 06:15 12/17/24 06:15 Calcium 9.3
[2024-12-17] MEDS: ATORVASTATIN 40 MG TABLET 80 MG BY MOUTH (20:15)
--- NOTE | 2024-12-17 21:24 | PC.NURSE ---
RAMONITAAR faxed abd tubed to 3rd med/surg. Called to make sure 3rd med surg aware.
--- NOTE | 2024-12-17 21:46 | PC.NURSE ---
Attempted to call report at [phone]. Nurse in room and will call back.
--- NOTE | 2024-12-17 23:35 | PC.NURSE ---
[id number] Report given to Cliff COSTA.
--- NOTE | 2024-12-17 23:35 | PC.NURSE ---
2325 Patient transferred to room 312 in bed. Belongings and autopap sent with placement.
[2024-12-18] VITALS: BP 148/76; PULSE 82; RESP 16; TEMP 36.8; O2SAT 95
[2024-12-18 00:25] VITALS: PULSE 65; O2SAT 95
[2024-12-18 04:00] VITALS: BP 154/75; PULSE 77; RESP 16; TEMP 36.8; O2SAT 96
[2024-12-18 06:40] LABS: Albumin Level 3.7 g/dL (3.5-5.1); Anion Gap 8 mmol/L (4-12); Blood Urea Nitrogen 33 mg/dL (9-20); Calcium 9.3 mg/dL (8.4-10.2); Carbon Dioxide 25 mmol/L (22-30); Chloride 107 mmol/L (98-107); Estimated CRCL calculation 61 ml/min; Estimated Glomerular Filt Rate 60; Glucose 99 mg/dL (65-110); Phosphorus 3.4 mg/dL (2.5-4.5); Potassium 4.2 mmol/L (3.4-5.0); Sodium 140 mmol/L (137-145)
[2024-12-18 06:51] LABS: Hematocrit 30.5 % (42.0-52.0); Hemoglobin 9.9 g/dL (14.0-18.0); Mean Corpuscular HGB Conc 32.5 g/dl (32-36); Mean Corpuscular Volume 95.6 fl (80-100); Mean Platelet Volume 9.2 fl (7.4-10.4); Platelet Count Result 260 k/mm3 (150-375); Red Blood Count 3.19 M/mm3 (4.6-6.20); Red Cell Distribution Width 14.1 % (11.5-14.5)
[2024-12-18] MEDS: LACTATED RINGERS 1,000 ML 125 ML IV CONT (07:34)
[2024-12-18 08:00] VITALS: O2SAT 95
[2024-12-18 08:16] VITALS: PULSE 93
[2024-12-18] MEDS: ASPIRIN 81 MG ENTERIC TABLET PO (08:16)
[2024-12-18] MEDS: PANTOPRAZOLE 40 MG TABLET PO (08:16)
[2024-12-18] MEDS: METOPROLOL SUCCINATE EXT REL 50 MG TABCR BY MOUTH (08:16)
[2024-12-18] MEDS: BUDESONIDE RESPULE NEB 0.5 MG/2 ML AMP INHALATION (08:25)
[2024-12-18 08:27] VITALS: PULSE 81; RESP 20; O2SAT 95
--- NOTE | 2024-12-18 09:30 | P.PNNP_ITS ---
Progress Note: A&P Assessment and Plan (1) Acute kidney injury: Code(s): N17.9 - Acute kidney failure, unspecified Status: Acute Assessment and Plan: * improvement noted (if not back to baseline) * as noted by admission labs * baseline creatinine seems to run ~ 1.1 - 1.2mg/dl * suspect multifactorial etiology: * prerenal factors * diuretic use (HCTZ and torsemide) * KATIE-I use * other(?) * wean off IVFs * evaluation to date noted: * renal ultrasound normal (but somewhatsuggestive of CKD) * urine eosinophils negative * UA sediment bland * urine electrolytes non-prerenal * no significant proteinuria * CPK normal * follow trend of repeat labs and UOP (2) Hyperkalemia: Code(s): E87.5 - Hyperkalemia Status: Acute Assessment and Plan: * resolved * noted by outpatient labs and worse on admission * presumably secondary to #1 * s/p medical management in ER * follow trend of repeat K+ levels (3) Hypertension: Code(s): I10 - Essential (primary) hypertension Status: Chronic Assessment and Plan: * reasonable control * lisinopril and diuretics on hold * follow trend of hemodynamics (4) Anemia: Code(s): D64.9 - Anemia, unspecified Status: Acute Assessment and Plan: * probably due to KALANI/ARF * possible dilutional effect for IVFs playing a role (?) * follow trend of H/H (5) Metabolic acidosis: Code(s): E87.20 - Acidosis, unspecified Status: Acute Assessment and Plan: * resolved * due to KALANI/ARF * follow trend of CO2 readings (6) COPD (chronic obstructive pulmonary disease): Code(s): J44.9 - Chronic obstructive pulmonary disease, unspecified Status: Chronic Assessment and Plan: * continue home inhalers * nebulizer treatments PRN Would not be opposed to discharge from renal perspective if he is otherwise medically stable -- would hold torsemide and HCTZ on discharge and restart lisinopril in a few days with repeat labs sometime next week to ensure kidney function is stable. Will continue to follow. L Subjective Date/time seen: 12/18/24 09:30 Interval history: Follow-up for acute kidney injury/acute renal failure. Renal function/creatinine continues to improve if not back to baseline with therapy/interventions to date; overall, he states he feels good and denies any acute complaints or concerns at the time of my visit; no events overnight or earlier this morning; at bedside and I discussed the situation with her. Exam 2 Narrative: General: elderly but WD/WN male in NAD Heart: normal S1 and S2; no rub Lungs: clear to auscultation Abdomen: soft, nontender, nondistended, positive bowel sounds Extremities: no cyanosis or clubbing; no edema Skin: warm and intact Objective Data Vital Signs Vital Signs: Vital Signs Temp Pulse Resp BP Pulse Ox O2 Del Method 12/18/24 08:27 81 20 12/18/24 08:27 95 Room Air 12/18/24 08:16 93 12/18/24 08:00 95 Room Air 12/18/24 04:00 98.2 F 77 16 154/75 H 96 12/18/24 00:25 65 95 CPAP 12/18/24 00:00 98.2 F 82 16 148/76 H 95 12/17/24 20:46 80 20 12/17/24 20:33 78 20 98 Room Air 12/17/24 20:32 73 20 12/17/24 20:00 98.4 F 110 H 18 145/66 H 96 12/17/24 15:57 98.4 F 72 17 129/61 97 Intake/Output Intake/Output: Intake & Output 12/15/24 12/16/24 12/17/24 12/18/24 23:59 23:59 23:59 23:59 Intake Total 3425.8 4541.7 758.3 Output Total 2100 3150 550 Balance 1325.8 1391.7 208.3 Meds/Results Medications: Active Medications Generic Name Dose Route Start Last Admin Trade Name Freq PRN Reason Stop Dose Admin Albuterol/Ipratropium 3 ml 12/16/24 13:37 12/17/24 20:30 Ipratropium 0.5 Mg/Albuterol Sulfate 2.5 Mg Ampul.Neb 3 Ml INHALATION 3 ml Q6-8H PRN Administration shortness of breath Aspirin 81 mg 12/17/24 09:00 12/18/24 08:16 Aspirin 81 Mg Enteric Tablet PO 81 mg DAILY CHARISSE Administration Atorvastatin Calcium 80 mg 12/17/24 21:00 05/08/25 20:15 Atorvastatin 40 Mg Tablet BY MOUTH 80 mg QHS CHARISSE Administration Budesonide 0.5 mg 12/17/24 20:00 12/18/24 08:25 Budesonide Respule Neb 0.5 Mg/2 Ml Amp INHALATION 0.5 mg Q12HRT CHARISSE Administration Dextrose 12.5 gm 12/16/24 15:45 Dextrose 50% 25 Gm/50 Ml Syringe IV PUSH PRN PRN Hypoglycemia Protocol Fluticasone/Umeclidinium/Vilanterol 1 puff 12/17/24 09:00 12/18/24 08:25 Fluticasone/Umeclidin/Vilanter 100-62.5-25 Mcg Ellipta INHALATION Not Given DAILY CHARISSE Glucose 15 gm 12/16/24 15:45 Glucose Oral Gel 15 Gm Of Glucse In 37.5 Gm Tube PO PRN PRN Hypoglycemia Protocol Lactated Ringer's 1,000 mls @ 125 mls/hr 12/16/24 10:15 12/18/24 07:35 Lr - Lactated Ringers Iv IV CONT Not Given .Q8H CHARISSE Dextrose 1,000 mls @ 100 mls/hr 12/16/24 15:45 Dextrose 5% 1,000 Ml IVPB PRN PRN Hypoglycemia Protocol Metoprolol Succinate 50 mg 12/17/24 09:00 12/18/24 08:16 Metoprolol Succinate Ext Rel 50 Mg Tabcr BY MOUTH 50 mg QAM CHARISSE Administration Pantoprazole Sodium 40 mg 12/17/24 09:00 12/18/24 08:16 Pantoprazole 40 Mg Tablet PO 40 mg QAM CHARISSE Administration Trazodone HCl 50 mg 12/16/24 23:00 Trazodone Hcl 50 Mg Tablet BY MOUTH HS PRN Sleep Radiology Results: ITS Impressions Chest X-Ray 12/16/24 09:52 Impression: Stable chronic blunting of the left costophrenic angle versus possibly small left pleural effusion. Renal Ultrasound 12/16/24 16:06 IMPRESSION: No hydronephrosis or renal calculi. Findings suggesting medical renal disease. Labs Labs: Laboratory Tests 12/18/24 06:10 12/18/24 06:10 Calcium 9.3 Phosphorus 3.4 Albumin 3.7
--- NOTE | 2024-12-18 13:14 | P.DS_ITS ---
DS: Admitting Diagnosis Discharge Date 12/18/2024 Admitting Diagnosis Abnormal labs DS: Discharge Diagnosis Discharge Diagnosis (1) Acute hyperkalemia: Code(s): E87.5 - Hyperkalemia Status: Acute Assessment and Plan: Hyperkalemia protocol Telemetry Repeat BMP at 2:00 p.m. (2) Acute renal failure: Code(s): N17.9 - Acute kidney failure, unspecified Status: Acute Assessment and Plan: Could be due to dehydration with nephrotoxic medications Nephrology consulted Fluid bolus and IV half Renal diet Hold lisinopril, allopurinol, torsemide and hydrochlorothiazide (3) Acute dehydration: Code(s): E86.0 - Dehydration Status: Acute Assessment and Plan: 2 L IV fluid given in the ED IVF for hydration (4) Hypertension: Code(s): I10 - Essential (primary) hypertension Status: Chronic Assessment and Plan: Hold hydrochlorothiazide and lisinopril due to acute dehydration and KALANI (5) (HFpEF) heart failure with preserved ejection fraction: Code(s): I50.30 - Unspecified diastolic (congestive) heart failure Status: Acute Assessment and Plan: Hold torsemide Monitor for pulmonary edema echo performed on 09/15/2024: Left ventricular systolic function is normal, estimated at 60-65%. (6) Hyperlipidemia: Code(s): E78.5 - Hyperlipidemia, unspecified Status: Acute (7) Gout: Qualifiers: Gout site: toe Gout etiology: unspecified cause Chronicity: acute Laterality: left Qualified Code(s): M10.9 - Gout, unspecified Code(s): M10.9 - Gout, unspecified Status: Acute Assessment and Plan: Hold allopurinol due to KALANI (8) COPD (chronic obstructive pulmonary disease): Code(s): J44.9 - Chronic obstructive pulmonary disease, unspecified Status: Chronic Assessment and Plan: Continue home inhalers Patient denies increased shortness of breath and coughing DS: Summary Hospital Course Hospital Course: 69-year-old male past medical history of pulmonary hypertension, COPD, hypertension and hyperlipidemia who was sent to the hospital by his PCP for abnormal labs. On his lab work he had done yesterday his potassium was 5.7, shows PCP referred him to the emergency room for treatment. Patient states the other day that he was playing golf he could only do 9 rounds before he felt ill and went home. He states that while he was out playing golf he drinks sprite. He states that after golf he laid on the couch and was feeling ill so his made him appointment at the doctors. There he on lab work done. This morning he was called and told to go to the emergency room due to his potassium being high. Patient is also on lisinopril, allopurinol and hydrochlorothiazide. He denies nausea vomiting diarrhea, increased shortness of breath or increased coughing. In the ED has leukocytosis of 11.1, hemoglobin of 11.3, potassium of 6.2, creatinine of 2.50 with baseline being 1.2 BUN of 80, estimated GFR 26, carbon dioxide 17, anion gap 13, UA with no acute findings. Chest x-ray shows Stable chronic blunting of the left costophrenic angle versus possibly small left pleural effusion. EKG shows sinus rhythm. In the ED he was given 2 L fluid bolus, calcium gluconate, 5 units of regular insulin, D50, bicarb and lokelma with repeat BMP pending. Nephrology was consulted. Patient labs were improved. Possibly easy AKA due to multiple medications and dehydration. Patient reports that he he was given torsemide by his PCP due to ankle swelling and advised to take for a day or 2. Unfortunately patient was taking torsemide continuously.Also patient reports he was playing golf past 2 days and not drinking enough water. I believe his KALANI is due to multiple factors including dehydration superimposed insult from the medication. Advised patient to have sodium Dee diet and Check daily morning weights after voiding. Can take Lasix 40 mg p.o. q.d and call your doctor if you gain more than 3 lb in 2 days or 5 lb in 1 week. Need to follow up with your primary care physician to in regards to blood pressure. Patient will be started on hydralazine and please titrate the dose accordingly with your PCP Status at Discharge Cognitive/behavioral status at discharge: Stable Time Spent with Patient Time attestation: Total time spent providing and/or coordinating discharge services: 45 minutes Exam Narrative: General: well appearing, appears stated age. HEENT: normocephalic, atraumatic. Mucous membranes moist. EOMI, PERRLA, harriett ateral sclera anicteric, no conjunctival injection. Neck supple without JVD, lymphadenopathy, or bruit. Respiratory: clear to ascultation bilaterally. No rales/rhonic/wheezes. Cardiovascular: Regular rate and rhythm, normal S1-S2 upon ascultation. No murmurs, rubs, or clicks. PMI is nondisplaced, capillary refill less than 3 second. Abdomen: Soft, round, no pulsatile masses, nondistended and nontender. No rebound, no guarding. No CVA tenderness, no hepatosplenomegaly. Bowel sounds present to all four quadrants. No high pitch or tinkling sounds, resonant to percussion. Extremities: No cyanosis, clubbing, or edema present. Pulses are palpable 2/2. Active ROM to all four extremities. Neuro: Alert and orientated x 4. PERRLA. Cranial nerves 2-12 intact without focal deficit. Skin: Warm, dry, and intact, without rash, erythema, or lesion. Psych: pleasant, cooperative, normal speech, normal affect, no hallucinations, no dysarthia DS: Data Data Completed and Pending Labs on day of discharge: Labs from last 24 hours 12/18/24 06:10 WBC 10.0 RBC 3.19 L Hgb 9.9 L Hct 30.5 L MCV 95.6 MCH 31.0 MCHC 32.5 RDW 14.1 Plt Count 260 MPV 9.2 Sodium 140 Potassium 4.2 Chloride 107 Carbon Dioxide 25 Anion Gap 8 BUN 33 H D Creatinine 1.20 Estim Creat Clear Calc 61 Estimated GFR 60 Glucose 99 Calcium 9.3 Phosphorus 3.4 Albumin 3.7 Additional Comments Additional comments: ITS Impressions Chest X-Ray 12/16/24 09:52 Impression: Stable chronic blunting of the left costophrenic angle versus possibly small left pleural effusion. Renal Ultrasound 12/16/24 16:06 IMPRESSION: No hydronephrosis or renal calculi. Findings suggesting medical renal disease. Discharge Plan Discharge Attending physician on discharge: Morris Post Consulting providers: Bobby Lujan Discharging Clinician: Morris Post Anticipated Discharge Date/Time: 12/18/24 13:21 Patient Disposition: Home Activity: as tolerated Diet: low sodium Discharge Instructions: Advised patient to have sodium less diet Check daily morning weights after voiding. Can take Lasix 40 mg p.o. q.d and call your doctor if you gain more than 3 lb in 2 days or 5 lb in 1 week. Need to follow up with your primary care physician to in regards to blood pressure. Patient will be started on hydralazine and please titrate the dose accordingly with your PCP Please recheck in BMP in a week and discuss the results with the PCP Check blood pressure 1 to 2 times a day. Record and bring into your doctor for review. Call your doctor if your blood pressure is greater than 180/110 or less than 90/45. Walk with cane or other assist device. Take precautions to avoid falls. Rise slowly from a lying or sitting position. Pause before standing or walking. Contact your doctor or call 911 and come to the Emergency Room if you have any type of trauma, lightheadedness with standing or other worrisome symptoms. Avoid NSAIDs (ibuprofen, naproxen, Aleve). Tylenol is safe to take. Follow-up with your primary care provider in 1-2 weeks. Please call for appointment. Follow-up with nephrology, and Cardiology in 2-4 weeks. Please call for an appointment. Thank you for using [facility] for your health care needs. Patient Instructions: Antibiotic Form Patient Language: Tristanian Stand Alone Forms: General Discharge Information Follow-up/Referrals: Kobi Huntley DO [Primary Care Provider] - (Patient medications allopurinol, colchicine or on hold. The other medication lisinopril, torsemide and hydrochlorothiazide discontinued due to KALANI. Patient started on hydralazine and needs to titrate the dose as per PCP) Bobby Lujan MD [Physician] - (Patient medications allopurinol, colchicine or on hold. The other medication lisinopril, torsemide and hydrochlorothiazide discontinued due to KALANI. Patient started on hydralazine and needs to titrate the dose as per PCP) Discharge Medications: New furosemide [Lasix] 40 mg tablet 40 mg PO DAILY PRN (Reason: weight gain) Qty: 30 0RF Rx Instructions: Daily weights, if you gain more than 3lb within 1 day or 5 lbsin 1 week please take one tablet hydralazine 10 mg tablet 10 mg PO BID Qty: 30 0RF Continued Breztri Aerosphere 160-9-4.8 mcg/actuation HFA aerosol inhaler 1 inh INHALATION DAILY ipratropium-albuterol 0.5 mg-3 mg(2.5 mg base)/3 mL solution for nebulization 3 ml inhalation Q6-8H PRN (Reason: shortness of breath) Combivent Respimat 20-100 mcg/actuation mist 1 puff inhalation QID PRN (Reason: shortness of breath or wheezing) Rx Instructions: space evenly during waking hours pantoprazole 40 mg tablet,delayed release (DR/EC) 40 mg PO QAM 42 Days Qty: 42 0RF budesonide 0.5 mg/2 mL suspension for nebulization 0.5 mg inhalation Q12H PRN (Reason: shortness of breath or wheezing) aspirin [Enteric Coated Aspirin] 81 mg tablet,delayed release (DR/EC) 81 mg PO DAILY Qty: 90 1RF atorvastatin 80 mg tablet See Rx Instructions .ROUTE .COMPLEX Qty: 90 1RF Dose Instruction: TAKE 1 TABLET BY MOUTH EVERYDAY AT BEDTIME Rx Instructions: TAKE 1 TABLET BY MOUTH EVERYDAY AT BEDTIME trazodone 50 mg tablet See Rx Instructions .ROUTE .COMPLEX Qty: 30 0RF Dose Instruction: 50 MG ORALLY EVERY DAY AT BEDTIME NEEDED FOR SLEEP Rx Instructions: 50 MG ORALLY EVERY DAY AT BEDTIME NEEDED FOR SLEEP metoprolol succinate 50 mg tablet extended release 24 hr See Rx Instructions .ROUTE .COMPLEX Qty: 90 2RF Dose Instruction: TAKE 1 TABLET BY MOUTH EVERY DAY Rx Instructions: TAKE 1 TABLET BY MOUTH EVERY DAY Held colchicine 0.6 mg capsule 0.6 mg PO DAILY PRN (Reason: gout flare) Qty: 180 1RF Hold Instructions: Resume on 01/08/25. Please discuss with your PCP before resuming Rx Instructions: Treatment of acute gout flares (Colcrys): 1.2 mg (2 tabs) by mouth at first sign of flare, then 0.6 mg 1 hr later; not to exceed 1.8 mg in 1-hr period allopurinol 100 mg tablet 100 mg PO DAILY Qty: 90 0RF Hold Instructions: Resume on 01/08/25. Please discuss with your PCP before resuming Discontinued hydrochlorothiazide 25 mg tablet 25 mg PO DAILY Qty: 90 1RF lisinopril 40 mg tablet See Rx Instructions .ROUTE .COMPLEX Qty: 90 3RF Dose Instruction: TAKE ONE TABLET BY MOUTH DAILY Rx Instructions: TAKE ONE TABLET BY MOUTH DAILY torsemide 20 mg tablet See Rx Instructions .ROUTE .COMPLEX Qty: 90 0RF Dose Instruction: TAKE 1 TABLET BY MOUTH EVERY DAY IN THE MORNING Rx Instructions: TAKE 1 TABLET BY MOUTH EVERY DAY IN THE MORNING Other Ambulatory Orders: Basic Metabolic Panel (Routine) Timeframe: 1 Week Location: Determined by Patient Ordered By: Morris Post Date of admission: 12/16/24 10:38 Primary Care Provider: Kobi Huntley Admitting Provider: Mckenzie Sebastian Attending physician on admission: Mckenzie Sebastian Condition: Stable
--- OUTSIDE RECORDS SUMMARY | 2024-12-21 11:20 | XMS_ITS | Clinical Summary ---
Author Organization [facility] Address [address] [place] [address] Care Team Providers Care Tile Picker Name Role Phone Unavailable Primary Care Provider [...]
--- OUTSIDE RECORDS SUMMARY | 2024-12-21 11:20 | XMS_ITS | Clinical Summary ---
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 Gender Identity Not on file Sexual Orientation [...] Tdap) 04/07/2031 Medical Devices Implanted Type Area Brim Stitcher Device Identifier Shelf Expiration Date Model / Serial / Lot Depuy Orthopaedics Inc [place] 58mm Sector Hip Shell Acetabular Gription Sterile Latex Free [id number] - [id number] Implanted:Qty: 1 on 11/11/2023 by Jose Carlos Saldana MD at [facility] Left: Hip Depuy Orthopaedics Inc 09/11/2033 [id number] / / [id number] Depuy Orthopaed[employer] Inc [place]uela 58mm 36mm Hip Neutral Liner Acetabular Altrx Sterile Latex Free [id number] - [id number] Implanted:Qty: 1 on 11/11/2023 by Jose Carlos Saldana MD at [facility] Left: Hip Depuy Orthopaedics Inc 09/11/2028 [id number] / / [id number] Depuy Orthopaedics Inc Actis Collar Hip 9 High Offset Stem Femoral [id number] - [id number] Implanted:Qty: 1 on 11/11/2023 by Jose Carlos Saldana MD at [facility] Left: Hip Depuy Orthopaedics Inc 08/11/2033 [id number] / / [id number] Depuy Orthopaedics Inc Articul/Shashi 36mm Cementless Hip +8.5mm 12/14 Taper Head Femoral Latex Free 1365-36330 - [id number] Implanted:Qty: 1 on 11/11/2023 by Jose Carlos Saldana MD at [facility] Left: Hip Depuy Orthopaedics Inc 08/11/2028 [id number] / / [id number] Insurance MEDICARE [facility] Advance Directives For more information, please contact: [phone] * Full Code (Latest Code Status on File) Date Activated Date Inactivated Comments 11/11/2023 11:04 AM 11/11/2023 6:25 PM Care Teams Wringer And Setter Relationship Specialty Start Date End Date Kobi Huntley DO [address] [place] [address] PCP - General Family Medicine 07/09/23 Jose Carlos Saldana MD [address] [facility] [address] [place] [address] Surgeon Orthopedic Surgery 11/11/23
--- OUTSIDE RECORDS SUMMARY | 2024-12-21 11:20 | XMS_ITS | Clinical Summary ---
Author Organization [facility] Address [address] [place] [address] Phone Care Team Providers Care Billposting Supervisor Name Role Phone Provider, None Primary Care [...] complete this topic Insurance MEDICARE Care Teams Billposting Supervisor Relationship Specialty Start Date End Date Provider, None [place] PCP - General 01/24/21
--- OUTSIDE RECORDS SUMMARY | 2024-12-21 11:20 | XMS_ITS | Referral Summary ---
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 Gender Identity Not on file Sexual Orientation [...] on file Medical Devices Implanted Type Area Communications Marketing Intern Device Identifier Shelf Expiration Date Model / Serial / Lot Depuy Orthopaedics Inc [place] 58mm Sector Hip Shell Acetabular Gription Sterile Latex Free [id number] - [id number] Implanted:Qty: 1 on 11/11/2023 by Jose Carlos Saldana MD at [facility] Left: Hip Depuy Orthopaedics Inc 09/11/2033 [id number] / / [id number] Depuy Orthopaed[employer] Inc [place] 58mm 36mm Hip Neutral Liner Acetabular Altrx Sterile Latex Free [id number] - [id number] Implanted:Qty: 1 on 11/11/2023 by Jose Carlos Saldana MD at [facility] Left: Hip Depuy Orthopaedics Inc 09/11/2028 [id number] / / [id number] Depuy Orthopaed[employer] Inc Actis Collar Hip 9 High Offset Stem Femoral [id number] - [id number] Implanted:Qty: 1 on 11/11/2023 by Jose Carlos Saldana MD at [facility] Left: Hip Depuy Orthopaedics Inc 08/11/2033 [id number] / / [id number] Depuy Orthopaedics Inc Articul/Shashi 36mm Cementless Hip +8.5mm /14 Taper Head Femoral Latex Free 1365-36330 - [id number] Implanted:Qty: 1 on 11/11/2023 by Jose Carlos Saldana MD at [facility] Left: Hip Depuy Orthopaed[employer] Inc 08/11/2028 [id number] / / [id number] Insurance [place] [address] Advance Directives For more information, please contact: [phone] * Full Code (Latest Code Status on File) Date Activated Date Inactivated Comments 11/11/2023 11:04 AM 11/11/2023 6:25 PM Care Teams Forestry Fire Aid Relationship Specialty Start Date End Date Kobi Huntley DO [address] [place] [address] PCP - General Family Medicine 07/09/23 Jose Carlos Saldana MD [address] [place] [address] [place] [address] Surgeon Orthopedic Surgery 11/11/23
--- OUTSIDE RECORDS SUMMARY | 2024-12-21 11:20 | XMS_ITS | Clinical Summary ---
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
--- OUTSIDE RECORDS SUMMARY | 2024-12-21 11:20 | XMS_ITS | Encounter Summary ---
Author Organization [facility] Address 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
== END 2024-12-18 14:33 | disposition home or self-care (01) | DRG 683 ==
LOC: ANHED 09:49 → ANHIMU 10:46 → ANH3MEDSUR 12-18 13:23 → ANHIMU 12-21 11:00
PROVIDERS: Internal Medicine Nephrology; Nurse Practitioner Gerontology; Admitting Provider Family Medicine; Emergency Provider Student in an Organized Health Care Education/Training Program; PCP Family Medicine; Visit Provider General Practice
DX: N17.9 Acute kidney failure, unspecified (principal); E87.20 Acidosis, unspecified; I50.32 Chronic diastolic (congestive) heart failure; I11.0 Hypertensive heart disease with heart failure; E87.5 Hyperkalemia; E86.0 Dehydration; T50.995A Adverse effect of other drugs, medicaments and biological substances, initial encounter; I27.20 Pulmonary hypertension, unspecified; D64.9 Anemia, unspecified; J44.9 Chronic obstructive pulmonary disease, unspecified; E78.5 Hyperlipidemia, unspecified; R73.03 Prediabetes; M10.9 Gout, unspecified; Z20.822 Contact with and (suspected) exposure to COVID-19; Z87.891 Personal history of nicotine dependence; Z79.82 Long term (current) use of aspirin
CPT/HCPCS: 36415; 71045; 76775; 80048; 80053; 80069; 81003; 82550; 82570; 82948; 84156; 84300; 84484; 84540; 85025; 85027; 85999; 93005; 94640; 96361; 96374; 96375; 99291; A9270; J0612; J1815; J7120

== ENCOUNTER 2024-12-20 19:03 | Emergency (ER) | payer MEDICARE, OTHER, SELFPAY ==
[2024-12-20 19:05] VITALS: BP 146/64; PULSE 86; RESP 18; TEMP 37.1; O2SAT 97
--- OUTSIDE RECORDS SUMMARY | 2024-12-20 19:07 | XMS_ITS | Encounter Summary ---
Author Organization [employer] Address 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
--- OUTSIDE RECORDS SUMMARY | 2024-12-20 19:07 | XMS_ITS | Clinical Summary ---
Author Organization [facility] Address [address] [place] [address] Phone Care Team Providers Care [employer] Labourer Name Role Phone Provider, None Primary Care [...] complete this topic Insurance MEDICARE Care Teams [employer] Labourer Relationship Specialty Start Date End Date Provider, None [place] PCP - General 01/24/21
--- OUTSIDE RECORDS SUMMARY | 2024-12-20 19:07 | XMS_ITS | Clinical Summary ---
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
--- OUTSIDE RECORDS SUMMARY | 2024-12-20 19:07 | XMS_ITS | Clinical Summary ---
Author Organization [facility] Address [address] [place] [address] Care Team Providers Care Therapist Name Role Phone Unavailable Primary Care Provider [...]
--- NOTE | 2024-12-20 19:17 | ED.SKABFB ---
HPI - Skin/Abscess/Foreign Bdy General Chief complaint: Extremity Problem,Nontraumatic Stated complaint: skin issue Time Seen by Provider: 12/20/24 19:16 Source: patient Mode of arrival: ambulatory Limitations: no limitations History of Present Illness HPI narrative: Patient is a 69-year-old male with a left forearm inflammation and pain since he was just released from the hospital and had IVs done on that same arm. MD complaint: rash ( Left forearm) Onset (ago): day(s) ( 2) Location: LUE ( forearm) Severity: moderate Severity scale (1-10): 4 Quality: burning and aching Pain Consistency: constant Relieving factors: none Exacerbating factors: none Context: other ( patient recently was hospitalized and had IVs placed in the same vicinity of the inflammation /rash) Associated symptoms: denies other symptoms Treatments prior to arrival: none Related Data Home Medications ?Medication ?Instructions ?Recorded ?Confirmed ?Last Taken ?Type budesonide 160 mcg-glycopyr 9 1 inh inhalation DAILY 04/07/21 12/16/24 12/16/24 History mcg-formot 4.8 mcg/actuation HFA inhaler (Breztri Aerosphere) ipratropium 0.5 mg-albuterol 3 mg 3 ml inhalation Q6-8H PRN 04/10/21 12/16/24 Unknown History (2.5 mg base)/3 mL nebulization shortness of breath soln ipratropium 20 mcg-albuterol 100 1 puff inhalation QID PRN 07/07/24 12/16/24 Unknown History mcg/actuation mist for inhalation shortness of breath or wheezing (Combivent Respimat) budesonide 0.5 mg/2 mL suspension 0.5 mg inhalation Q12H PRN 12/16/24 12/16/24 Unknown History for nebulization shortness of breath or wheezing Allergies Allergy/AdvReac Type Severity Reaction Status Date / Time No Known Allergies Allergy Verified 12/16/24 13:59 Review of Systems Review of Systems: All systems reviewed & are unremarkable except as noted in HPI and below Constitutional: Constitutional: Reports no additional constitutional complaints Eyes: Eyes: Reports no additional eye complaints ENT: Reports system reviewed and no additional complaints, except as documented Cardiovascular: Cardiovascular: Reports no additional cardiovascular complaints Respiratory: Respiratory: Reports no additional respiratory complaints Gastrointestinal: Gastrointestinal: Reports no additional gastrointestinal complaints Genitourinary: Genitourinary: Reports no additional male genitourinary complaints Musculoskeletal: Musculoskeletal: Reports no additional musculoskeletal complaints Integumentary/Breasts: Skin/Breast: Reports system reviewed and no additional complaints, except as docu Neurologic: Reports system reviewed and no additional complaints, except as documented Psychiatric: Psychiatric: Reports no additional psychiatric complaints Endocrine: Endocrine: Reports no additional endocrine complaints Hematologic/Lymphatic: Hematologic/Lymphatic: Reports no additional hematologic/lymphatic complaints Allergic/Immunologic: Allergic/Immunologic: Reports no additional allergic/immunologic complaints PMFSH Past Medical History Medical History Hyperlipidemia Hypertension Prediabetes Leg wound, left Nicotine addiction Pulmonary hypertension Left leg cellulitis COPD (chronic obstructive pulmonary disease) Surgical History Surgical History History of tonsillectomy Previous back surgery Rods and screws, 2002 Family History Family History Father Heart disease Mother Lung cancer Social History Social History Smoking packs per day: 1 Smoking cigarettes per day: 20.0 Years smoked: 45 Smoking pack-years: 45.00 Smoking status: Current every day smoker Tobacco type: e-cigarettes/vaping Second hand tobacco smoke exposure: Yes Smoking end date: 04/11/23 Alcohol intake: former Alcohol use details: weekends Substance use: never Substance use type: does not use Do You Feel Safe in your Home?: Yes Lack of Transportation: No Lack of Food: Never True Current Housing: I Have Housing Concerned About Future Housing: No Difficulty Paying Gas/Electric Bills: No Difficulty Paying for Meds: No Currently Unemployed: No Education: High School Diploma/GED Difficulty w/ Childcare or Family Care: No Living arrangements: with family Additional living arrangements comments: Occupation/Education: retired Spiritual care concerns: No Exam Const: General: healthy appearing Nutritional Appearance: well nourished Orientation/consciousness: patient oriented x3 HENMT: Head: normal to inspection Ears: external ears normal Face/Nose/Sinus: Normal external nose present Eyes: Conjunctivae: conjunctivae normal Pupils: Equal, round and reactive pupils present EOM: EOMs intact bilaterally Neck: Neck: normal visual inspection Chest: Chest palpation & inspection: normal inspection of the chest Resp: Effort & Inspection: normal respiratory effort and not labored Auscultation: clear to auscultation bilaterally and no crackles Cardio: Rate: regular rate Rhythm: regular rhythm Heart sounds: no murmurs GI: Inspection: non-distended Auscultation: normal bowel sounds : General: Yes bladder normal to palpation Back/Spine/Pelvis: Back: no CVA tenderness Skin: General skin exam: normal color Rashes: rash noted Wounds: no wounds Other: left forearm anteriorly has a red erythema swollen hot area with some nodularity and tenderness Neuro: General: patient oriented x3 Cranial nerves: Yes Nystagmus not present Speech: normal speech Extrem: General: normal to inspection Psych: Mental Status: mental status grossly normal Affect: normal affect Attitude: cooperative Course Vital Signs Vital signs: Vital Signs Temperature 37.1 C 12/20/24 19:05 Pulse Rate 86 12/20/24 19:05 Respiratory Rate 18 12/20/24 19:05 Blood Pressure 146/64 H 12/20/24 19:05 Pulse Oximetry 97 12/20/24 19:05 Oxygen Delivery Room Air 12/20/24 19:05 Temperature 37.1 C 12/20/24 19:05 Pulse Rate 86 12/20/24 19:05 Respiratory Rate 18 12/20/24 19:05 Blood Pressure 146/64 H 12/20/24 19:05 Pulse Oximetry 97 12/20/24 19:05 Oxygen Delivery Room Air 12/20/24 19:05 MDM - Skin/Abscess/Foreign Bdy MDM Narrative Medical decision making narrative: patient is a 69-year-old male with recent hospitalization and IV placement in the left arm having left forearm redness and pain. We will schedule ultrasound for venous in the a.m.. Keflex. Cold compress. Discharge Plan Discharge Clinical Impression: Thrombophlebitis Patient Disposition: Home Condition: Stable Instructions: Antibiotic Form, Superficial Thrombophlebitis (ED) Additional Instructions: please use cold compress to the area of inflammation. Make sure you come at 6:50 a.m. for your 7:00 a.m. ultrasound on the left upper extremity. Patient Language: Citizen Of [place] Prescriptions: New cephalexin 500 mg capsule 500 mg PO BID 10 Days Qty: 20 0RF No Action Sajan Aerosphere 160-9-4.8 mcg/actuation HFA aerosol inhaler 1 inh INHALATION DAILY ipratropium-albuterol 0.5 mg-3 mg(2.5 mg base)/3 mL solution for nebulization 3 ml inhalation Q6-8H PRN (Reason: shortness of breath) Combivent Respimat 20-100 mcg/actuation mist 1 puff inhalation QID PRN (Reason: shortness of breath or wheezing) Rx Instructions: space evenly during waking hours pantoprazole 40 mg tablet,delayed release (DR/EC) 40 mg PO QAM 42 Days Qty: 42 0RF budesonide 0.5 mg/2 mL suspension for nebulization 0.5 mg inhalation Q12H PRN (Reason: shortness of breath or wheezing) furosemide [Lasix] 40 mg tablet 40 mg PO DAILY PRN (Reason: weight gain) Qty: 30 0RF Rx Instructions: Daily weights, if you gain more than 3lb within 1 day or 5 lbsin 1 week please take one tablet hydralazine 10 mg tablet 10 mg PO BID Qty: 30 0RF aspirin [Enteric Coated Aspirin] 81 mg tablet,delayed release (DR/EC) 81 mg PO DAILY Qty: 90 1RF colchicine 0.6 mg capsule 0.6 mg PO DAILY PRN (Reason: gout flare) Qty: 180 1RF Rx Instructions: Treatment of acute gout flares (Colcrys): 1.2 mg (2 tabs) by mouth at first sign of flare, then 0.6 mg 1 hr later; not to exceed 1.8 mg in 1-hr period atorvastatin 80 mg tablet See Rx Instructions .ROUTE .COMPLEX Qty: 90 1RF Dose Instruction: TAKE 1 TABLET BY MOUTH EVERYDAY AT BEDTIME Rx Instructions: TAKE 1 TABLET BY MOUTH EVERYDAY AT BEDTIME trazodone 50 mg tablet See Rx Instructions .ROUTE .COMPLEX Qty: 30 0RF Dose Instruction: 50 MG ORALLY EVERY DAY AT BEDTIME NEEDED FOR SLEEP Rx Instructions: 50 MG ORALLY EVERY DAY AT BEDTIME NEEDED FOR SLEEP metoprolol succinate 50 mg tablet extended release 24 hr See Rx Instructions .ROUTE .COMPLEX Qty: 90 2RF Dose Instruction: TAKE 1 TABLET BY MOUTH EVERY DAY Rx Instructions: TAKE 1 TABLET BY MOUTH EVERY DAY allopurinol 100 mg tablet 100 mg PO DAILY Qty: 90 0RF Other Ambulatory Orders: US venous doppler UE LT (Routine) Timeframe: 1 Day Location: Determined by Patient Ordered By: Nathaniel Vieira Follow-up/Referrals: Kobi Huntley DO [Primary Care Provider] - Time of Disposition: 20:27
--- OUTSIDE RECORDS SUMMARY | 2024-12-20 19:47 | XMS_ITS | Referral Summary ---
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 Gender Identity Not on file Sexual [...] on file Medical Devices Implanted Type Area Cashier Or Checker Stock Clerk Device Identifier Shelf Expiration Date Model / Serial / Lot Depuy [employer] [place] 58mm Sector Hip Shell Acetabular Gription Sterile Latex Free [id number] - [id number] Implanted:Qty: 1 on 11/11/2023 by Jose Carlos Saldana MD at [facility] Left: Hip Depuy [employer]opa[employer] Inc 09/11/2033 [id number] / / [id number] Depuy [employer] [place] 58mm 36mm Hip Neutral Liner Acetabular Altrx Sterile Latex Free [id number] - [id number] Implanted:Qty: 1 on 11/11/2023 by Jose Carlos Saladna MD at [facility] Left: Hip Depuy [employer] Inc 09/11/2028 [id number] / / [id number] Depuy [employer] Actis Collar Hip 9 High Offset Stem Femoral [id number] - [id number] Implanted:Qty: 1 on 11/11/2023 by Jose Carlos Saldana MD at [facility] Left: Hip Depuy [employer] Inc 08/11/2033 [id number] / / [id number] Depuy [employer] Inc Articul/Shashi 36mm Cementless Hip +8.5mm /14 Taper Head Femoral Latex Free 1365-36330 - [id number] Implanted:Qty: 1 on 11/11/2023 by Jose Carlos Saldana MD at [facility] Left: Hip Depuy [employer] 08/11/2028 [id number] / / [id number] Insurance [place]ICARE [place] [id number] Advance Directives For more information, please contact: [phone] * Full Code (Latest Code Status on File) Date Activated Date Inactivated Comments 11/11/2023 11:04 AM 11/11/2023 6:25 PM Care Teams Client Technologies Specialist Relationship Specialty Start Date End Date Kobi Huntley DO [address] [place] [address] PCP - General Family Medicine 07/09/23 Jose Carlos Saldana MD [address] [place] [address] [place] [address] Surgeon Orthopedic Surgery 11/11/23
--- OUTSIDE RECORDS SUMMARY | 2024-12-20 19:47 | XMS_ITS | Clinical Summary ---
Author Organization [facility] Address [address] [place] [address] Care Team Providers Care Open Hearth Melter Name Role Phone Unavailable Primary Care Provider [...]
--- OUTSIDE RECORDS SUMMARY | 2024-12-20 19:47 | XMS_ITS | Clinical Summary ---
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 Gender Identity Not on file Sexual Orientation [...] Tdap) 04/07/2031 Medical Devices Implanted Type Area Pollution Control Chemist Device Identifier Shelf Expiration Date Model / Serial / Lot Depuy [employer] [place] 58mm Sector Hip Shell Acetabular Gription Sterile Latex Free [id number] - [id number] Implanted:Qty: 1 on 11/11/2023 by Jose Carlos Saldana MD at [facility] Left: Hip [employer]uy [employer] Inc 09/11/2033 [id number] / / [id number] Depuy [employer] [place] 58mm 36mm Hip Neutral Liner Acetabular Altrx Sterile Latex Free [id number] - [id number] Implanted:Qty: 1 on 11/11/2023 by Jose Carlos Saldana MD at [facility] Left: Hip [employer]uy [employer] Inc 09/11/2028 [id number] / / [id number] Depuy [employer] Actis Collar Hip 9 High Offset Stem Femoral [id number] - [id number] Implanted:Qty: 1 on 11/11/2023 by Jose Carlos Saldana MD at [facility] Left: Hip [employer]uy [employer] Inc 08/11/2033 [id number] / / [id number] Depuy [employer] Inc Articul/Shashi 36mm Cementless Hip +8.5mm 12/14 Taper Head Femoral Latex Free 1365-36330 - [id number] Implanted:Qty: 1 on 11/11/2023 by Jose Carlos Saldana MD at [facility] Left: Hip [employer]uy [employer] Inc 08/11/2028 [id number] / / [id number] [place] [address] [facility] Advance Directives For more information, please contact: [phone] * Full Code (Latest Code Status on File) Date Activated Date Inactivated Comments 11/11/2023 11:04 AM 11/11/2023 6:25 PM Care Teams Errand Runner Relationship Specialty Start Date End Date Kobi Huntley DO [address] [place] [address] PCP - General Family Medicine 07/09/23 Jose Carlos Saldana MD [address] [facility] [address] [place] [id number] Surgeon Orthopedic Surgery 11/11/23
--- OUTSIDE RECORDS SUMMARY | 2024-12-20 19:48 | XMS_ITS | Clinical Summary ---
Author Organization [facility] Address [address] [place] [address] Phone Care Team Providers Care Marketing Performance Analyst Name Role Phone Provider, None Primary Care [...] complete this topic Insurance MEDICARE Care Teams Marketing Performance Analyst Relationship Specialty Start Date End Date Provider, None [place] PCP - General 01/24/21
--- OUTSIDE RECORDS SUMMARY | 2024-12-20 19:48 | XMS_ITS | Encounter Summary ---
Author Organization [email or web address] Address 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
--- OUTSIDE RECORDS SUMMARY | 2024-12-20 19:48 | XMS_ITS | Clinical Summary ---
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
[2024-12-20] MEDS: CEPHALEXIN 500 MG CAPSULE 1000 MG PO (20:32)
== END 2024-12-20 20:35 | disposition home or self-care (01) ==
PROVIDERS: Emergency Provider Emergency Medicine; PCP Family Medicine
DX: I80.8 Phlebitis and thrombophlebitis of other sites (principal); I10 Essential (primary) hypertension; E78.5 Hyperlipidemia, unspecified; J44.9 Chronic obstructive pulmonary disease, unspecified; F17.210 Nicotine dependence, cigarettes, uncomplicated
CPT/HCPCS: 99283; A9270

== ENCOUNTER 2024-12-21 06:50 | Outpatient (CLI) | payer MEDICARE, OTHER, SELFPAY ==
--- NOTE | ~2024-12-21 | US_ITS ---
LEFT UPPER EXTREMITY VENOUS ULTRASOUND Ordering provider: Nathaniel Vieira MD History: . I80.9 - Phlebitis and thrombophlebitis of unspecified site . Comparison: None. FINDINGS: --JUGULAR: Patent and free of thrombus. Normal compressibility, phasic flow and augmentation. --SUBCLAVIAN: Patent and free of thrombus. Normal compressibility, phasic flow and augmentation. --AXILLARY: Patent and free of thrombus. Normal compressibility, phasic flow and augmentation. --BRACHIAL: Patent and free of thrombus. Normal compressibility, phasic flow and augmentation. --CEPHALIC: Patent and free of thrombus. Normal compressibility, phasic flow and augmentation. --BASILIC: Patent and free of thrombus. Normal compressibility, phasic flow and augmentation. --RADIAL: Patent and free of thrombus. Normal compressibility, phasic flow and augmentation. --ULNAR: Patent and free of thrombus. Normal compressibility, phasic flow and augmentation. Defects are seen in a branch of the cephalic vein extending from the mid humerus to mid forearm. IMPRESSION: No deep vein thrombosis. Defects are seen in a branch of the cephalic vein extending from the mid humerus to mid forearm. Reviewed, dictated and finalized at location A. IMPRESSION: No deep vein thrombosis. Defects are seen in a branch of the cephalic vein extending from the mid humeru s to mid forearm.
--- OUTSIDE RECORDS SUMMARY | 2024-12-21 06:54 | XMS_ITS | Clinical Summary ---
Author Organization [facility] Address [address] [place] [address] Care Team Providers Care Television Cameraman Name Role Phone Unavailable Primary Care Provider [...]
--- OUTSIDE RECORDS SUMMARY | 2024-12-21 06:54 | XMS_ITS | Encounter Summary ---
Author Organization [facility] Address 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
--- OUTSIDE RECORDS SUMMARY | 2024-12-21 06:54 | XMS_ITS | Referral Summary ---
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 Left: Hip Depuy [employer] Inc 09/11/2033 [id number] / / [id number] Depuy [employer] [place] 58mm 36mm Hip Neutral Liner Acetabular Altrx Sterile Latex Free [id number] - [id number] Implanted:Qty: 1 on 11/11/2023 by Jose Carlos Saldana MD at [facility] Left: Hip Depuy [employer] Inc 09/11/2028 [id number] / / [id number] Depuy [employer] Inc Actis Collar Hip 9 High Offset Stem Femoral [id number] - [id number] Implanted:Qty: 1 on 11/11/2023 by Jose Carlos Saldana MD at [facility] Left: Hip Depuy [employer] Inc 08/11/2033 [id number] / / [id number] Depuy [employer] Inc Articul/Shashi 36mm Cementless Hip +8.5mm /14 Taper Head Femoral Latex Free 1365-36330 - [id number] Implanted:Qty: 1 on 11/11/2023 by Jose Carlos Saldana MD at [facility] Left: Hip [employer]uy [employer] Inc 08/11/2028 [id number] / / [id number] Insurance MEDICARE [employer] [place] [address] Advance Directives For more information, please contact: [phone] * Full Code (Latest Code Status on File) Date Activated Date Inactivated Comments 11/11/2023 11:04 AM 11/11/2023 6:25 PM Care Teams Mule Spinner Relationship Specialty Start Date End Date Kobi Huntley DO [address] [place] [address] PCP - General Family Medicine 07/09/23 Jose Carlos Saldana MD [address] [place] [address] [place] [address] Surgeon Orthopedic Surgery 11/11/23
--- OUTSIDE RECORDS SUMMARY | 2024-12-21 06:54 | XMS_ITS | Clinical Summary ---
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
--- OUTSIDE RECORDS SUMMARY | 2024-12-21 06:54 | XMS_ITS | Clinical Summary ---
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 Gender Identity Not on file Sexual Orientation [...] Tdap) 04/07/2031 Medical Devices Implanted Type Area Liquefied Natural Gas Plant Operator Device Identifier Shelf Expiration Date Model / Serial / Lot Depuy [employer] [place] 58mm Sector Hip Shell Acetabular Gription Sterile Latex Free [id number] - [id number] Implanted:Qty: 1 on 11/11/2023 by Jose Carlos Saldana MD at [facility] Left: Hip Depuy [employer] Inc 09/11/2033 [id number] / / [id number] Depuy [employer] [place] 58mm 36mm Hip Neutral Liner Acetabular Altrx Sterile Latex Free [id number] - [id number] Implanted:Qty: 1 on 11/11/2023 by Jose Carlos Saldana MD at [facility] Left: Hip Depuy [employer] Inc 09/11/2028 [id number] / / [id number] Depuy [employer] Inc Actis Collar Hip 9 High Offset Stem Femoral [id number] - [id number] Implanted:Qty: 1 on 11/11/2023 by Jose Carlos Saldana MD at [facility] Left: Hip [employer]uy [employer] Inc 08/11/2033 [id number] / / [id number] Depuy [employer] Inc Articul/Shashi 36mm Cementless Hip +8.5mm 12/14 Taper Head Femoral Latex Free 1365-36330 - [id number] Implanted:Qty: 1 on 11/11/2023 by Jose Carlos Saldana MD at [facility] Left: Hip Depuy [employer] Inc 08/11/2028 [id number] / / [id number] Insurance MEDICARE [facility] Advance Directives For more information, please contact: [phone] * Full Code (Latest Code Status on File) Date Activated Date Inactivated Comments 11/11/2023 11:04 AM 11/11/2023 6:25 PM Care Teams Social Security Benefits Interviewer Relationship Specialty Start Date End Date Kobi Huntley DO [address] [place] [address] PCP - General Family Medicine 07/09/23 Jose Carlos Saldana MD [address] [facility] [address] [place] [address] Surgeon Orthopedic Surgery 11/11/23
--- OUTSIDE RECORDS SUMMARY | 2024-12-21 06:54 | XMS_ITS | Clinical Summary ---
Author Organization [facility] Address [address] [place] [address] Phone Care Team Providers Care Senior Dot Net Developer Name Role Phone Provider, None Primary Care [...] this topic Insurance MEDICARE Care Teams Senior Dot Net Developer Relationship Specialty Start Date End Date Provider, None [place] PCP - General 01/24/21
== END 2024-12-21 06:51 | disposition home or self-care (01) ==
LOC: CHSIMG 06:53
PROVIDERS: PCP Family Medicine; Visit Provider Emergency Medicine
DX: I80.9 Phlebitis and thrombophlebitis of unspecified site (principal)
CPT/HCPCS: 93971

== ENCOUNTER 2024-12-21 14:20 | Emergency (ER) | payer MEDICARE, OTHER, SELFPAY ==
--- NOTE | ~2024-12-21 | CT_ITS ---
CTA chest PE protocol Ordering provider: Kurtis Lala MD History: 69 years Male with . SOB,CHEST TIGHTNESS,COUGH,SMOKER,COPD . Comparison: None. Technique: CT angiogram chest was performed following timed intravenous injection of contrast. Thin s lice axial images and reformatted coronal images were obtained. Three dimensional reformatted images of the chest were also obtained using a Disc[employer] workstation. . Automated exposure control and iterati ve reconstruction technique were employed. The dose-length product was 555.97 mGy-cm. 100 mL Omnipaqu e 350 was given IV. Findings: PULMONARY ARTERIES: No pulmonary embolus. VISUALIZED THORACIC INLET: Normal. MEDIASTINUM: Aorta/coronary arteries: Mild atheromatous disease. Heart/other: The heart is not enlarged. Lymph nodes: prevascular lymph nodes are noted with the largest measures 2.1 cm. LUNGS: Subsegmental atelectasis in the left lung base. Underlying nodule is less likely but [address] foll ow-up advised. No pulmonary masses. No infiltrates or effusions. No pneumothorax. Underlying emphyse matous changes. VISUALIZED UPPER ABDOMEN: Slightly prominent left adrenal gland. No follow-up is advised unless clini justin warranted. Otherwise, the visualized upper abdomen is normal. MUSCULOSKELETAL: Soft tissues: The superficial soft tissues are normal. Bones: Age appropriate degenerative changes of the spine. IMPRESSION: 1. No pulmonary embolism. 2. No acute cardiopulmonary pathology. 3. Underlying emphysematous changes. 4. Left basilar subsegmental atelectatic changes. Possibility of nodule is less likely. Follow-up CT in 6 months is advised. Reviewed, dictated and finalized at location A. IMPRESSION: 1. No pulmonary embolism. 2. No acute cardiopulmonary pathology. 3. Underlying emphysematous changes. 4. Left basilar subsegmental atelectatic changes. Possibility of nodule is les s likely. Follow-up CT in 6 months is advised.
[2024-12-21 14:20] VITALS: BP 161/77; PULSE 92; RESP 16; TEMP 36.9; O2SAT 94
--- NOTE | 2024-12-21 14:27 | ED.SOB ---
HPI - SOB/Dyspnea General Chief Complaint: Shortness of Breath/Dyspnea Stated Complaint: shortness of breath Time Seen by Provider: 12/21/24 14:27 Source: patient and family Mode of arrival: ambulatory Limitations: no limitations History of Present Illness HPI Narrative: 69 YEARS OLD WHITE MALE CAME FROM HOME BY PRIVATE CAR WITH HIS COMPLAINING OF WAKING UP THIS MORNING AT 5:00 A.M. WITH SHORTNESS OF BREATH SIMILAR TO HIS HISTORY OF COPD, DID NOT GET BETTER ON BREATHING TREATMENT. HE DENIES ANY FEVER, CHILLS, NAUSEA, VOMITING, DIARRHEA OR CHEST PAIN. PATIENT WAS SEEN IN OUR EMERGENCY ROOM LAST NIGHT FOR LEFT UPPER EXTREMITY PAIN, VENOUS DOPPLER SHOWED NO DEEP VEIN THROMBOSIS, Related Data Home Medications ?Medication ?Instructions ?Recorded ?Confirmed ?Last Taken ?Type budesonide 160 mcg-glycopyr 9 1 inh inhalation DAILY 04/07/21 12/16/24 12/16/24 History mcg-formot 4.8 mcg/actuation HFA inhaler (Breztri Aerosphere) ipratropium 0.5 mg-albuterol 3 mg 3 ml inhalation Q6-8H PRN 04/10/21 12/16/24 Unknown History (2.5 mg base)/3 mL nebulization shortness of breath soln ipratropium 20 mcg-albuterol 100 1 puff inhalation QID PRN 07/07/24 12/16/24 Unknown History mcg/actuation mist for inhalation shortness of breath or wheezing (Combivent Respimat) budesonide 0.5 mg/2 mL suspension 0.5 mg inhalation Q12H PRN 12/16/24 12/16/24 Unknown History for nebulization shortness of breath or wheezing Allergies Allergy/AdvReac Type Severity Reaction Status Date / Time No Known Allergies Allergy Verified 12/21/24 14:48 [facility] Past Medical History Medical History Hyperlipidemia Hypertension Prediabetes Leg wound, left Nicotine addiction Pulmonary hypertension Left leg cellulitis COPD (chronic obstructive pulmonary disease) Surgical History Surgical History History of tonsillectomy Previous back surgery Rods and screws, 2001 Family History Family History Father Heart disease Mother Lung cancer Social History Social History Smoking packs per day: 1 Smoking cigarettes per day: 20.0 Years smoked: 45 Smoking pack-years: 45.00 Smoking status: Current every day smoker Tobacco type: e-cigarettes/vaping Second hand tobacco smoke exposure: Yes Smoking end date: 04/11/23 Alcohol intake: former Alcohol use details: weekends Substance use: never Substance use type: does not use Do You Feel Safe in your Home?: Yes Lack of Transportation: No Lack of Food: Never True Current Housing: I Have Housing Concerned About Future Housing: No Difficulty Paying Gas/Electric Bills: No Difficulty Paying for Meds: No Currently Unemployed: No Education: High School Diploma/GED Difficulty w/ Childcare or Family Care: No Living arrangements: with family Additional living arrangements comments: Occupation/Education: retired Spiritual care concerns: No Course Vital Signs Vital signs: Vital Signs Temperature 36.9 C 12/21/24 14:20 Pulse Rate 92 12/21/24 14:20 Respiratory Rate 16 12/21/24 14:20 Blood Pressure 161/77 H 12/21/24 14:20 Pulse Oximetry 94 12/21/24 14:20 Oxygen Delivery Room Air 12/21/24 14:20 Temperature 36.9 C 12/21/24 14:20 Pulse Rate 92 12/21/24 15:42 Respiratory Rate 15 12/21/24 15:42 Blood Pressure 133/75 12/21/24 15:42 Pulse Oximetry 98 12/21/24 15:42 Oxygen Delivery Room Air 12/21/24 15:42 MDM - SOB/Dyspnea MDM Narrative Medical decision making narrative: PATIENT WOKE UP THIS MORNING WITH SHORTNESS OF BREATH , HISTORY OF COPD VITAL SIGNS PHYSICAL EXAMINATION SHOWING SLIGHT DIMINUTION AIR ENTRY BILATERALLY DIFFERENTIAL DIAGNOSIS INCLUDE CORONARY ARTERY DISEASE, COPD EXACERBATION, PULMONARY EMBOLISM, PNEUMONIA, PLEURAL EFFUSION. BLOOD WORKUP TODAY INCLUDES CBC, CMP, TROPONIN, PRO BMP SHOWED WBC 11.5, HEMOGLOBIN 10.4, OTHERWISE WITH INSIGNIFICANT ABNORMALITY BLOOD GAS ON ROOM AIR SHOWING PH 7.4, OXYGEN SATURATION AT 91.6 ON ROOM AIR CTA CHEST RULE OUT PE SHOWEDNO PULMONARY EMBOLISM EKG SHOWING NORMAL SINUS RHYTHM AT 82 BEATS PER MINUTE, INFERIOR MYOCARDIAL INFARCTION OF INDETERMINATE AGE, BORDERLINE EKG DIAGNOSIS COPD EXACERBATION, PATIENT DECLINED TO BE HOSPITALIZED AND WOULD LIKE TO GO HOME ON MEDICATIONS. DISCHARGED ON Z-TIGRE AND PREDNISONE. THE PT WAS DISCHARGED TO HOME.THE PT,S CONDITION UPON DISCHARGE WAS FAIR,EDUCATION WAS PROVIDED TO THE PT IN REFERENCE TO THE FINAL IMPRESSION,DISCHARGE STUDY RESULTS,TREATMENT,PROGNOSIS AND NEED FOR FOLLOW UP . Differential Diagnosis Differential diagnosis: Likely other ( ABOVE) Medical Records Attestation: I reviewed the patient's medical records. Lab Data Attestation: I reviewed the patient's lab results. 12/21/24 14:43 12/21/24 14:43 Labs: Lab Results 12/21/24 Range/Units 14:43 WBC 11.5 H (4.8-10.8) K/mm3 RBC 3.39 L (4.70-6.10) M/mm3 Hgb 10.4 L (12.4-15.3) g/dL Hct 31.3 L (37.0-46.0) % MCV 92.3 (78.0-102.0) fL MCH 30.7 (27.0-31.0) pg MCHC 33.2 (32-36) g/dL RDW 13.2 (11.6-14.4) % Plt Count 296 (150-420) K/mm3 MPV 8.7 (8.7-11.0) fl Immature Gran % (Auto) 0.3 H (0.0-0.0) % Neut % (Auto) 74.6 H (50.0-70.0) % Lymph % (Auto) 4.5 L (18.0-42.0) % [place] % (Auto) 5.0 (2.0-11.0) % Eos % (Auto) 15.3 H (1.0-6.0) % Baso % (Auto) 0.3 (0.0-1.0) % Lymph # (Auto) 0.52 L (1.10-4.50) K/mm3 [place] # (Auto) 0.57 (0.10-0.90) K/mm3 Eos # (Auto) 1.76 H (0.02-0.50) K/mm3 Baso # (Auto) 0.04 (0.00-0.10) K/mm3 Abs Immat Gran (auto) 0.03 H (0.00-0.00) K/mm3 Absolute Neuts (auto) 8.55 H (1.70-7.20) K/mm3 Absolute Nucleated RBC 0.00 (0.00-0.00) K/mm3 Nucleated RBC % 0.0 (0-0.0) % PT 10.9 (9.50-12.1) Seconds INR 1.0 APTT 26.3 (23.9-30.70) Sec Sodium 131 L (137-145) mmol/L Potassium 3.9 (3.4-5.0) mmol/L Chloride 99 (98-107) mmol/L Carbon Dioxide 27 (22-30) mmol/L Anion Gap 5 (4-12) mmol/L BUN 19 D (9-20) mg/dL Creatinine 1.18 (0.7-1.3) mg/dL Estim Creat Clear Calc Not Reportable Estimated GFR > 60 (59 - ) Glucose 97 (65-110) mg/dL Calculated Osmolality 274 L (285-295) mOsm/kg Calcium 8.8 (8.4-10.2) mg/dL Total Bilirubin 0.6 (0.2-1.3) mg/dL AST 40 (17-59) U/L ALT 19 (6-50) U/L Alkaline Phosphatase 87 (38-126) U/L Troponin I 0.013 (0.000-0.034) ng/mL NT-Pro-B Natriuret Pep 1260 H (19.9-100) pg/mL Total Protein 6.8 (6.3-8.2) g/dL Albumin 3.9 (3.5-5.1) g/dL ABG Data ABG results: 12/21/24 14:45 Puncture Site Left radial ABG pH 7.48 H ABG pCO2 30.9 L ABG pO2 60.3 L ABG HCO3 22.2 L ABG O2 Saturation 91.6 L ABG Base Excess -0.3 L Oxyhemoglobin 90.8 L O2 Delivery Device Room air O2 Liters/Min 0.0 Imaging Data Radiologist's impression: Impressions Chest CTA 12/21/24 15:45 IMPRESSION: 1. No pulmonary embolism. 2. No acute cardiopulmonary pathology. 3. Underlying emphysematous changes. 4. Left basilar subsegmental atelectatic changes. Possibility of nodule is less likely. Follow-up CT in 6 months is advised. ECG Data EKG #1: Attestation: I personally reviewed and interpreted this ECG as follows: ECG completion date: 12/21/24 Prior ECG tracings: available for review Interpretation: NORMAL SINUS RHYTHM AT 82 BEATS PER MINUTE, NO NEW CHANGES COMPARED TO PREVIOUS EKG ON DECEMBER 16, 2024 Critical Care Time Critical Care Time Critical Care Time: No Discharge Plan Discharge Clinical Impression: Acute exacerbation of COPD with asthma Patient Disposition: Home Condition: Stable Instructions: Antibiotic Form, COPD (Chronic Obstructive Pulmonary Disease) (DC) Additional Instructions: RETURN IF SYMPTOMS ARE WORSENING , CALL YOUR FAMILY PHYSICIAN FOR APPOINTMENT, TAKE TYLENOL NEEDED FOR ACHES AND PAIN, CONTINUE HOME MEDICATIONS. DUONEB EVERY 6 HOUR FOR 3 DAYS RISK INHALER EVERY 4 HOURS NEEDED Patient Language: Hungarian Prescriptions: New azithromycin [Zithromax Z-Tigre] 250 mg tablet 250 mg PO DAILY PRN (Reason: COPD exacerbation) 5 Days Qty: 6 0RF prednisone 20 mg tablet 40 mg PO DAILY 5 Days Qty: 10 0RF No Action Breztri Aerosphere 160-9-4.8 mcg/actuation HFA aerosol inhaler 1 inh INHALATION DAILY cephalexin 500 mg capsule 500 mg PO BID 10 Days Qty: 20 0RF ipratropium-albuterol 0.5 mg-3 mg(2.5 mg base)/3 mL solution for nebulization 3 ml inhalation Q6-8H PRN (Reason: shortness of breath) Combivent Respimat 20-100 mcg/actuation mist 1 puff inhalation QID PRN (Reason: shortness of breath or wheezing) Rx Instructions: space evenly during waking hours pantoprazole 40 mg tablet,delayed release (DR/EC) 40 mg PO QAM 42 Days Qty: 42 0RF budesonide 0.5 mg/2 mL suspension for nebulization 0.5 mg inhalation Q12H PRN (Reason: shortness of breath or wheezing) furosemide [Lasix] 40 mg tablet 40 mg PO DAILY PRN (Reason: weight gain) Qty: 30 0RF Rx Instructions: Daily weights, if you gain more than 3lb within 1 day or 5 lbsin 1 week please take one tablet hydralazine 10 mg tablet 10 mg PO BID Qty: 30 0RF aspirin [Enteric Coated Aspirin] 81 mg tablet,delayed release (DR/EC) 81 mg PO DAILY Qty: 90 1RF colchicine 0.6 mg capsule 0.6 mg PO DAILY PRN (Reason: gout flare) Qty: 180 1RF Rx Instructions: Treatment of acute gout flares (Colcrys): 1.2 mg (2 tabs) by mouth at first sign of flare, then 0.6 mg 1 hr later; not to exceed 1.8 mg in 1-hr period atorvastatin 80 mg tablet See Rx Instructions .ROUTE .COMPLEX Qty: 90 1RF Dose Instruction: TAKE 1 TABLET BY MOUTH EVERYDAY AT BEDTIME Rx Instructions: TAKE 1 TABLET BY MOUTH EVERYDAY AT BEDTIME trazodone 50 mg tablet See Rx Instructions .ROUTE .COMPLEX Qty: 30 0RF Dose Instruction: 50 MG ORALLY EVERY DAY AT BEDTIME NEEDED FOR SLEEP Rx Instructions: 50 MG ORALLY EVERY DAY AT BEDTIME NEEDED FOR SLEEP metoprolol succinate 50 mg tablet extended release 24 hr See Rx Instructions .ROUTE .COMPLEX Qty: 90 2RF Dose Instruction: TAKE 1 TABLET BY MOUTH EVERY DAY Rx Instructions: TAKE 1 TABLET BY MOUTH EVERY DAY allopurinol 100 mg tablet 100 mg PO DAILY Qty: 90 0RF Follow-up/Referrals: Kobi Huntley DO [Primary Care Provider] -
--- NOTE | 2024-12-21 14:28 | ECG_ITS ---
Test Date: 2024-12-21 14:37:37 Measurements Intervals [place] Rate: 82 P: 82 MS: 152 QRS: 79 QRSD: 98 T: 71 QT: 364 QTc: 427 Interpretive Statements SINUS RHYTHM POSSIBLE INFERIOR MYOCARDIAL INFARCTION , PROBABLY OLD [30 ms Q WAVE IN II/aVF] Compared to ECG 12/16/2024 09:21:17 Myocardial infarct finding now present Electronically Signed On 12-22-2024 13:58:48 CDT by Milton Marítnez M.D.
--- OUTSIDE RECORDS SUMMARY | 2024-12-21 14:29 | XMS_ITS | Clinical Summary ---
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 Gender Identity Not on file Sexual Orientation [...] Tdap) 04/07/2031 Medical Devices Implanted Type Area Marine Mammal Trainer Device Identifier Shelf Expiration Date Model / Serial / Lot Depuy Orthopaed[employer] Inc [place] 58mm Sector Hip Shell Acetabular Gription Sterile Latex Free [id number] - [id number] Implanted:Qty: 1 on 11/11/2023 by Jose Carlos Saldana MD at [facility] Left: Hip Depuy Orth[employer] Inc 09/11/2033 [id number] / / [id number] Depuy [employer] Inc Th[place] 58mm 36mm Hip Neutral Liner Acetabular Altrx Sterile Latex Free [id number] - [id number] Implanted:Qty: 1 on 11/11/2023 by Jose Carlos Saldana MD at [facility] Left: Hip Depuy Orth[employer] Inc 09/11/2028 [id number] / / [id number] Depuy [employer] Inc Actis Collar Hip 9 High Offset Stem Femoral [id number] - [id number] Implanted:Qty: 1 on 11/11/2023 by Jose Carlos Saldana MD at [facility] Left: Hip [employer]uy Orth[employer] Inc 08/11/2033 [id number] / / [id number] Depuy Orth[employer] Inc Articul/Shashi 36mm Cementless Hip +8.5mm 12/14 Taper Head Femoral Latex Free 1365-36330 - [id number] Implanted:Qty: 1 on 11/11/2023 by Jose Carlos Saldana MD at [facility] Left: Hip Depuy [employer] Inc 08/11/2028 1365-24-330 / / [id number] Insurance MEDICARE [facility] Advance Directives For more information, please contact: [phone] * Full Code (Latest Code Status on File) Date Activated Date Inactivated Comments 11/11/2023 11:04 AM 11/11/2023 6:25 PM Care Teams Salt Miner Relationship Specialty Start Date End Date Kobi Huntley DO [address] [place] [address] PCP - General Family Medicine 07/09/23 Jose Carlos Saldana MD [address] [facility] [address] [place] [address] Surgeon Orthopedic Surgery 11/11/23
--- OUTSIDE RECORDS SUMMARY | 2024-12-21 14:29 | XMS_ITS | Encounter Summary ---
Author Organization [facility] Address 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
--- OUTSIDE RECORDS SUMMARY | 2024-12-21 14:29 | XMS_ITS | Clinical Summary ---
Author Organization 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
--- OUTSIDE RECORDS SUMMARY | 2024-12-21 14:29 | XMS_ITS | Referral Summary ---
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 Gender Identity Not on file Sexual Orientation [...] on file Medical Devices Implanted Type Area Mailing Machine Helper Device Identifier Shelf Expiration Date Model / Serial / Lot Depuy Orthopaedics Inc [place] 58mm Sector Hip Shell Acetabular Gription Sterile Latex Free [id number] - [id number] Implanted:Qty: 1 on 11/11/2023 by Jose Carlos Saldana MD at [facility] Left: Hip Depuy Orth[employer] Inc 09/11/2033 [id number] / / [id number] Depuy Orthopaed[employer] Inc [place] 58mm 36mm Hip Neutral Liner Acetabular Altrx Sterile Latex Free [id number] - [id number] Implanted:Qty: 1 on 11/11/2023 by Jose Carlos Saldana MD at [facility] Left: Hip Depuy [employer]ed[employer] Inc 09/11/2028 [id number] / / [id number] Depuy [employer] Inc Actis Collar Hip 9 High Offset Stem Femoral [id number] - [id number] Implanted:Qty: 1 on 11/11/2023 by Jose Carlos Saldana MD at [facility] Left: Hip Depuy [employer] Inc 08/11/2033 [id number] / / [id number] Depuy [employer] Inc Articul/Shashi 36mm Cementless Hip +8.5mm /14 Taper Head Femoral Latex Free 1365-36330 - [id number] Implanted:Qty: 1 on 11/11/2023 by Jose Carlos Saldana MD at [facility] Left: Hip [employer]uy [employer] Inc 08/11/2028 [id number] / / [id number] Insurance MEDICARE [employer] [facility] [place] [place] [address] Advance Directives For more information, please contact: [phone] * Full Code (Latest Code Status on File) Date Activated Date Inactivated Comments 11/11/2023 11:04 AM 11/11/2023 6:25 PM Care Teams Energy Control Officer Relationship Specialty Start Date End Date Kobi Huntley DO [address] [place] [address] PCP - General Family Medicine 07/09/23 Jose Carlos Saldana MD [address] [place] [address] [place] [address] Surgeon Orthopedic Surgery 11/11/23
--- OUTSIDE RECORDS SUMMARY | 2024-12-21 14:29 | XMS_ITS | Clinical Summary ---
Author Organization [facility] Address [address] [place] [address] Care Team Providers Care Customer Service And Sales Consultant Name Role Phone Unavailable Primary Care [...]
--- OUTSIDE RECORDS SUMMARY | 2024-12-21 14:29 | XMS_ITS | Clinical Summary ---
Author Organization [facility] Address [address] [place] [address] Phone Care Team Providers Care Demographic Analyst Name Role Phone Provider, None Primary [...] complete this topic Insurance MEDICARE Care Teams Demographic Analyst Relationship Specialty Start Date End Date Provider, None [place] PCP - General 01/24/21
--- NOTE | 2024-12-21 14:36 | PC.NURSE ---
DR MOURA AT THE BEDSIDE. ATTEMPTED IV LINE PLACEMENT TO RIGHT ARM WITH NO SUCCESS. ASKED GAGAN COSTA TO PLACE IV LINE.
--- NOTE | 2024-12-21 14:38 | PC.NURSE ---
RAVED WITH CARDIOPULMONARY COMPLETING EKG
[2024-12-21 14:49] LABS: Base Excess ABG -0.3 mmol/L (0-2); HCO3 ABG 22.2 mmol/L (23-29); Oxygen Saturation ABG 91.6 % (95-97); Oxyhemoglobin 90.8 % (94-100); PCO2 ABG 30.9 mmHg (35-45); PO2 ABG 60.3 mmHg (75-85); pH ABG 7.48 (7.35-7.45)
[2024-12-21 14:49] LABS: Basophils Absolute Auto 0.04 K/mm3 (0.00-0.10); Basophils Percent Auto 0.3 % (0.0-1.0); Eosinophils Absolute Auto 1.76 K/mm3 (0.02-0.50); Eosinophils Percent Auto 15.3 % (1.0-6.0); Hematocrit 31.3 % (37.0-46.0); Hemoglobin 10.4 g/dL (12.4-15.3); Immature Granulocyte Absolute 0.03 K/mm3 (0.00-0.00); Immature Granulocyte Percent A 0.3 % (0.0-0.0); Lymphocytes Absolute Auto 0.52 K/mm3 (1.10-4.50); Lymphocytes Percent Auto 4.5 % (18.0-42.0); Mean Corpuscular HGB Conc 33.2 g/dL (32-36); Mean Corpuscular Hemoglobin 30.7 pg (27.0-31.0); Mean Corpuscular Volume 92.3 fL (78.0-102.0); Mean Platelet Volume 8.7 fl (8.7-11.0); Monocytes Absolute Auto 0.57 K/mm3 (0.10-0.90); Neutrophils Absolute Auto 8.55 K/mm3 (1.70-7.20); Neutrophils Percent Auto 74.6 % (50.0-70.0); Platelet Count Result 296 K/mm3 (150-420); Red Blood Count 3.39 M/mm3 (4.70-6.10); Red Cell Distribution Width 13.2 % (11.6-14.4); White Blood Count 11.5 K/mm3 (4.8-10.8)
[2024-12-21 14:50] LABS: Device ROOM AIR; Modified Allen's Test Pass; Site Drawn LEFT RADIAL
[2024-12-21 15:00] LABS: Alanine Aminotransferase 19 U/L (6-50); Albumin Level 3.9 g/dL (3.5-5.1); Alkaline Phosphatase 87 U/L (38-126); Anion Gap 5 mmol/L (4-12); Aspartate Amino Transferase 40 U/L (17-59); Bilirubin,Total 0.6 mg/dL (0.2-1.3); Blood Urea Nitrogen 19 mg/dL (9-20); Calcium 8.8 mg/dL (8.4-10.2); Carbon Dioxide 27 mmol/L (22-30); Chloride 99 mmol/L (98-107); Estimated Glomerular Filt Rate > 60; Glucose 97 mg/dL (65-110); Osmolality Calculated 274 mOsm/kg (285-295); Potassium 3.9 mmol/L (3.4-5.0); Sodium 131 mmol/L (137-145); Total Protein 6.8 g/dL (6.3-8.2)
--- NOTE | 2024-12-21 15:04 | PC.NURSE ---
PATIENT CURRENTLY RESTING ON STRETCHER. CALL LIGHT IN REACH. NO NEEDS VOICED.
[2024-12-21 15:05] LABS: Partial Thromboplastin Time 26.3 Sec (23.9-30.70); Prothrombin Time 10.9 Seconds (9.50-12.1)
[2024-12-21 15:09] LABS: NT Pro B Type Natriuretic Pept 1260 pg/mL (19.9-100)
[2024-12-21 15:20] LABS: Troponin I 0.013 ng/mL (0.000-0.034)
[2024-12-21 15:42] VITALS: BP 133/75; PULSE 92; RESP 15; O2SAT 98
--- NOTE | 2024-12-21 15:44 | PC.NURSE ---
PATIENT RETURNED FROM CT VIA WHEEL CHAIR
[2024-12-21 15:46] VITALS: BP 144/83; PULSE 86; RESP 22; O2SAT 92
[2024-12-21 16:05] VITALS: BP 163/68; PULSE 93; RESP 16; O2SAT 90
[2024-12-21] MEDS: methylPREDNISolone SOD SUCC 125 MG VIAL IV PUSH (16:07)
[2024-12-21] MEDS: IPRATROPIUM 0.5 MG/ALBUTEROL SULFATE 2.5 MG AMPUL.NEB 3 ML INHALATION (16:07)
[2024-12-21 16:17] VITALS: BP 133/46; PULSE 89; RESP 17; O2SAT 93
== END 2024-12-21 16:39 | disposition home or self-care (01) ==
PROVIDERS: Emergency Provider Emergency Medicine; PCP Family Medicine
DX: J44.1 Chronic obstructive pulmonary disease with (acute) exacerbation (principal); E78.5 Hyperlipidemia, unspecified; I10 Essential (primary) hypertension; F17.210 Nicotine dependence, cigarettes, uncomplicated
CPT/HCPCS: 36415; 36600; 71275; 80053; 82805; 83880; 84484; 85025; 85610; 85730; 93005; 96374; 99284; J2919; Q9967

== ENCOUNTER 2024-12-30 11:36 | Outpatient (CLI) | payer MEDICARE, SELFPAY ==
--- OUTSIDE RECORDS SUMMARY | 2024-12-30 11:54 | XMS_ITS | Referral Summary ---
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 Gender Identity Not on file Sexual [...] cm (5' 11.5 ) 01/14/2024 3:31 PM C DT Body Mass Index 27.92 01/14/2024 3:31 PM CDT Plan of Treatment Not on file Medical Devices Implanted Type Area Security Rover Device Identifier Shelf Expiration Date Model / Serial / Lot Depuy [employer] [place] 58mm Sector Hip Shell Acetabular Gription Sterile Latex Free [id number] - [id number] Implanted:Qty: 1 on 11/11/2023 by Jose Carlos Saldana MD at [facility] Left: Hip Depuy [employer] Inc 09/11/2033 [id number] / / [id number] Dep[employer] [place] 58mm 36mm Hip Neutral Liner Acetabular Altrx Sterile Latex Free [id number] - [id number] Implanted:Qty: 1 on 11/11/2023 by Jose Carlos Saldana MD at [facility] Left: Hip [employer] Inc 09/11/2028 [id number] / / [id number] Depuy [employer] Actis Collar Hip 9 High Offset Stem Femoral [id number] - [id number] Implanted:Qty: 1 on 11/11/2023 by Jose Carlos Saldana MD at [facility] Left: Hip [employer] Inc 08/11/2033 [id number] / / [id number] Depuy [employer] Inc Articul/Shashi 36mm Cementless Hip +8.5mm /14 Taper Head Femoral Latex Free [id number] - [id number] Implanted:Qty: 1 on 11/11/2023 by Jose Carlos Saldana MD at [facility] Left: Hip [employer] 08/11/2028 [id number] / / [id number] Insurance MEDICARE [employer] [place] [address] Advance Directives For more information, please contact: [phone] * Full Code (Latest Code Status on File) Date Activated Date Inactivated Comments 11/11/2023 11:04 AM 11/11/2023 6:25 PM Care Teams Catalog Specialist Relationship Specialty Start Date End Date Kobi Huntley DO [address] [place] [address] PCP - General Family Medicine 07/09/23 Jose Carlos Saldana MD [address] [place] [address] [place] [address] Surgeon Orthopedic Surgery 11/11/23
--- OUTSIDE RECORDS SUMMARY | 2024-12-30 11:54 | XMS_ITS | Clinical Summary ---
Author Organization [facility] Address [address] [place] [address] Phone Care Team Providers Care Congressional Aide Name Role Phone Provider, None Primary [...] complete this topic Insurance MEDICARE Care Teams Congressional Aide Relationship Specialty Start Date End Date Provider, None [place] PCP - General 01/24/21
--- OUTSIDE RECORDS SUMMARY | 2024-12-30 11:54 | XMS_ITS | Encounter Summary ---
Author Organization [employer] Address 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
--- OUTSIDE RECORDS SUMMARY | 2024-12-30 11:54 | XMS_ITS | Clinical Summary ---
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
--- OUTSIDE RECORDS SUMMARY | 2024-12-30 11:54 | XMS_ITS | Clinical Summary ---
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 Gender Identity Not on file Sexual Orientation [...] Tdap) 04/07/2031 Medical Devices Implanted Type Area Materials Intern Device Identifier Shelf Expiration Date Model / Serial / Lot Depuy [employer] [place] 58mm Sector Hip Shell Acetabular Gription Sterile Latex Free [id number] - [id number] Implanted:Qty: 1 on 11/11/2023 by Jose Carlos Saldana MD at [facility] Left: Hip [employer] Inc 09/11/2033 [id number] / / [id number] Dep[employer] [place] 58mm 36mm Hip Neutral Liner Acetabular Altrx Sterile Latex Free [id number] - [id number] Implanted:Qty: 1 on 11/11/2023 by Jose Carlos Saldana MD at [facility] Left: Hip [employer] 09/11/2028 [id number] / / [id number] Dep[employer] Actis Collar Hip 9 High Offset Stem Femoral [id number] - [id number] Implanted:Qty: 1 on 11/11/2023 by Jose Carlos Saldana MD at [facility] Left: Hip [employer] Inc 08/11/2033 [id number] / / [id number] [employer] Inc Articul/Shashi 36mm Cementless Hip +8.5mm 12/14 Taper Head Femoral Latex Free [id number] - [id number] Implanted:Qty: 1 on 11/11/2023 by Jose Carlos Saldana MD at [facility] Left: Hip [employer] 08/11/2028 [id number] / / [id number] Insurance MEDICARE [facility] Advance Directives For more information, please contact: [phone] * Full Code (Latest Code Status on File) Date Activated Date Inactivated Comments 11/11/2023 11:04 AM 11/11/2023 6:25 PM Care Teams Java Spring Developer Relationship Specialty Start Date End Date Kobi Huntley DO [address] [place] [address] PCP - General Family Medicine 07/09/23 Jose Carlos Saldana MD [address] [facility] [facility] [address] [address] [place] [address] [place] [address] Surgeon Orthopedic Surgery 11/11/23
[2024-12-30 12:41] LABS: Anion Gap 2 mmol/L (4-12); Blood Urea Nitrogen 16 mg/dL (9-20); Calcium 8.9 mg/dL (8.4-10.2); Carbon Dioxide 28 mmol/L (22-30); Chloride 107 mmol/L (98-107); Estimated Glomerular Filt Rate > 60; Glucose 81 mg/dL (65-110); Osmolality Calculated 284 mOsm/kg (285-295); Potassium 4.7 mmol/L (3.4-5.0); Sodium 137 mmol/L (137-145)
== END 2024-12-30 11:37 | disposition home or self-care (01) ==
PROVIDERS: PCP Family Medicine; Visit Provider General Practice
DX: N17.9 Acute kidney failure, unspecified (principal)
CPT/HCPCS: 36415; 80048

== ENCOUNTER 2025-02-21 07:49 | Emergency (ER) | payer MEDICARE, OTHER, SELFPAY ==
[2025-02-21] VITALS (24 sets, daily range): BP systolic 159–179; BP diastolic 84–140; PULSE 57–87; RESP 12–25; TEMP 37; O2SAT 89–98
--- NOTE | ~2025-02-21 | XR_ITS ---
Clinical Indication: Shortness of breath PA and lateral views of the chest: Comparison: 12/16/2024 Findings: There is hazy perihilar and bibasilar airspace disease. Small bilateral pleural effusions a re present.. Cardiomediastinal silhouette is within normal limits. Bones and soft tissues are unrema rkable. Impression: Small bilateral pleural effusions with mild to moderate pulmonary edema pattern. Correlate clinically for pneumonia. Reviewed, dictated and finalized at location . Impression: Small bilateral pleural effusions with mild to moderate pulmonary edema pattern . Correlate clinically for pneumonia.
--- NOTE | ~2025-02-21 | CT_ITS ---
Clinical Indication: Shortness of breath CT Scan of the Chest with Contrast: Technique: Contiguous sections were acquired throughout the chest after intravenous administration of 100 cc of Omnipaque 350. Dose reduction technique was used on this scan by utilizing automated expos ure control and iterative reconstruction technique. The dose-length product (DLP) was 561.82 mGy-cm. COMPARISON: 12/21/2024 Findings: Stable mildly prominent mediastinal lymph nodes. There is no filling defect in the pulmonary arterial tree to suggest pulmonary embolus. There is no evidence of aortic dissection or aneurysm. No pericar dial effusion. Moderate right pleural effusion and minimal left pleural effusion are present. There is mild diffuse interstitial edema. There is mild to moderate emphysema. There is mild bibasilar atelectatic change. Images through the upper abdomen reveal no abnormalities. Impression: No evidence of pulmonary embolus, aortic dissection, or aortic aneurysm. Moderate right pleural effusion minimal left pleural effusion. Mild interstitial edema and mild bibasilar atelectatic change. Mild to moderate emphysema. Reviewed, dictated and finalized at [facility]. Impression: No evidence of pulmonary embolus, aortic dissection, or aortic aneurysm. Moderate right pleural effusion minimal left pleural effusion. Mild interstitial edema and mild bibasilar atelectatic change. Mild to moderate emphysema.
--- NOTE | 2025-02-21 07:55 | ECG_ITS ---
Test Date: 2025-02-21 08:00:56 Measurements Intervals [place] Rate: 75 P: 77 UT: 138 QRS: 22 QRSD: 100 T: 71 QT: 388 QTc: 436 Interpretive Statements SINUS RHYTHM PROBABLE INFERIOR MYOCARDIAL INFARCTION , PROBABLY OLD [35 ms Q WAVE IN II/aVF] ABNORMAL ECG Compared to ECG 12/21/2024 14:37:37 No significant changes Electronically Signed On 02-21-2025 11:37:21 CDT by Kyaw Echeverria M.D.
--- NOTE | 2025-02-21 07:56 | ED_ITS ---
HPI - SOB/Dyspnea General Chief Complaint: Shortness of Breath/Dyspnea Stated Complaint: shortness of breath Time Seen by Provider: 02/21/25 07:55 Source: patient and family Mode of arrival: ambulatory Limitations: no limitations History of Present Illness HPI Narrative: Patient is a 70-year-old male with COPD and he says his medicine is not working as well lately. He has a history of CHF as well. He is having shortness of breath over the past 3 days. No chest pain. No nausea vomiting or diarrhea. MD elicited complaint: shortness of breath Pertinent past history: COPD and congestive heart failure Onset (ago): day(s) ( Three) Context: other ( patient is having worsening shortness of breath over the past few days with his history of COPD and CHF) Timing: constant Severity: moderate Exacerbating factors: lying flat Relieving factors: nothing Known history of: COPD and congestive heart failure Associated symptoms: denies other symptoms Treatment prior to arrival: bronchodilator Related Data Home oxygen amount: none Home Medications ?Medication ?Instructions ?Recorded ?Confirmed ?Last Taken ?Type ipratropium 0.5 mg-albuterol 3 mg 3 ml inhalation Q6-8H PRN 04/10/21 12/31/24 Unknown History (2.5 mg base)/3 mL nebulization shortness of breath soln ipratropium 20 mcg-albuterol 100 1 puff inhalation QID PRN 07/07/24 12/31/24 Unknown History mcg/actuation mist for inhalation shortness of breath or wheezing (Combivent Respimat) budesonide 0.5 mg/2 mL suspension 0.5 mg inhalation Q12H PRN 12/16/24 12/31/24 Unknown History for nebulization shortness of breath or wheezing Allergies Allergy/AdvReac Type Severity Reaction Status Date / Time No Known Allergies Allergy Verified 02/21/25 08:38 Review of Systems 2 Review of Systems: All systems reviewed & are unremarkable except as noted in HPI and below Constitutional: Constitutional: Reports no additional constitutional complaints Eyes: Eyes: Reports no additional eye complaints ENT: Reports system reviewed and no additional complaints, except as documented Cardiovascular: Cardiovascular: Reports no additional cardiovascular complaints Respiratory: Respiratory: Reports no additional respiratory complaints Gastrointestinal: Gastrointestinal: Reports no additional gastrointestinal complaints Genitourinary: Genitourinary: Reports no additional male genitourinary complaints Musculoskeletal: Musculoskeletal: Reports no additional musculoskeletal complaints Integumentary/Breasts: Skin/Breast: Reports system reviewed and no additional complaints, except as docu Neurologic: Reports system reviewed and no additional complaints, except as documented Psychiatric: Psychiatric: Reports no additional psychiatric complaints Endocrine: Endocrine: Reports no additional endocrine complaints Hematologic/Lymphatic: Hematologic/Lymphatic: Reports no additional hematologic/lymphatic complaints Allergic/Immunologic: Allergic/Immunologic: Reports no additional allergic/immunologic complaints [facility] Past Medical History Medical History Hyperlipidemia Hypertension Prediabetes Leg wound, left Nicotine addiction Pulmonary hypertension Left leg cellulitis COPD (chronic obstructive pulmonary disease) Surgical History Surgical History History of tonsillectomy Previous back surgery Rods and screws, 2001 Family History Family History Father Heart disease Mother Lung cancer Social History Social History Smoking packs per day: 1 Smoking cigarettes per day: 20.0 Years smoked: 45 Smoking pack-years: 45.00 Smoking status: Current every day smoker Tobacco type: e-cigarettes/vaping Second hand tobacco smoke exposure: Yes Smoking end date: 04/11/23 Alcohol intake: former Alcohol use details: weekends Substance use: never Substance use type: does not use Do You Feel Safe in your Home?: Yes Lack of Transportation: No Lack of Food: Never True Current Housing: I Have Housing Concerned About Future Housing: No Difficulty Paying Gas/Electric Bills: No Difficulty Paying for Meds: No Currently Unemployed: No Education: High School Diploma/GED Difficulty w/ Childcare or Family Care: No Living arrangements: with family Additional living arrangements comments: Occupation/Education: retired Spiritual care concerns: No Exam 2 Const: General: healthy appearing Nutritional Appearance: well nourished Orientation/consciousness: patient oriented x3 Limitations: no limitations HENMT: Head: normal to inspection Ears: external ears normal F guillermina/Nose/Sinus: Normal external nose present Eyes: Conjunctivae: conjunctivae normal Pupils: Equal, round and reactive pupils present EOM: EOMs intact bilaterally Neck: Neck: normal visual inspection Chest: Chest palpation & inspection: normal inspection of the chest Resp: Effort & Inspection: normal respiratory effort, not labored, no retractions, not tachypneic and no use of accessory muscles Auscultation: not clear to auscultation bilaterally, crackles ( right lower lung), rales ( right lower lung), no rhonchi, wheezes ( bilateral and throughout), breath sounds present and diminished lung sounds Cardio: Rate: regular rate Rhythm: regular rhythm Heart sounds: no murmurs GI: Inspection: non-distended GI Palp: Yes Soft to palpation and No Tenderness to palpation present (GI) Auscultation: normal bowel sounds : General: Yes bladder normal to palpation Back/Spine/Pelvis: Back: no CVA tenderness Skin: General skin exam: normal color Rashes: no rashes Wounds: no wounds Neuro: General: patient oriented x3, moves all extremities, no meningeal signs, no focal motor deficits and CN's II-XI intact bilaterally Extrem: General: normal to inspection and edema ( Bilateral 2+ pitting) Psych: Mental Status: mental status grossly normal Affect: normal affect Attitude: cooperative Course Vital Signs Vital signs: Vital Signs Temperature 37.0 C 02/21/25 07:49 Pulse Rate 82 02/21/25 07:49 Respiratory Rate 20 02/21/25 07:49 Blood Pressure 179/97 H 02/21/25 07:49 Pulse Oximetry 92 02/21/25 07:49 Oxygen Delivery Room Air 02/21/25 07:49 Temperature 37.0 C 02/21/25 07:49 Pulse Rate 78 02/21/25 08:45 Respiratory Rate 22 H 02/21/25 08:45 Blood Pressure 177/93 H 02/21/25 08:16 Pulse Oximetry 93 02/21/25 08:45 Oxygen Delivery Room Air 02/21/25 08:45 Oxygen Flow Rate 7 02/21/25 08:30 MDM - SOB/Dyspnea MDM Narrative Medical decision making narrative: patient is a 70-year-old male with COPD and remote history of CHF. He is not on Lasix regularly. We will do a cardiopulmonary workup at this time. Lab Data Attestation: I reviewed the patient's lab results. 02/21/25 08:06 02/21/25 08:06 Labs: Lab Results 07/13/25 Range/Units 08:06 WBC 8.3 (4.8-10.8) K/mm3 RBC 4.41 L (4.70-6.10) M/mm3 Hgb 13.4 (12.4-15.3) g/dL Hct 42.4 (37.0-46.0) % MCV 96.1 (78.0-102.0) fL MCH 30.4 (27.0-31.0) pg MCHC 31.6 L (32-36) g/dL RDW 13.1 (11.6-14.4) % Plt Count 339 (150-420) K/mm3 MPV 9.4 (8.7-11.0) fl Immature Gran % (Auto) 0.4 H (0.0-0.0) % Neut % (Auto) 86.4 H (50.0-70.0) % Lymph % (Auto) 6.9 L (18.0-42.0) % [place] % (Auto) 2.8 (2.0-11.0) % Eos % (Auto) 2.5 (1.0-6.0) % Baso % (Auto) 1.0 (0.0-1.0) % Lymph # (Auto) 0.57 L (1.10-4.50) K/mm3 [place] # (Auto) 0.23 (0.10-0.90) K/mm3 Eos # (Auto) 0.21 (0.02-0.50) K/mm3 Baso # (Auto) 0.08 (0.00-0.10) K/mm3 Abs Immat Gran (auto) 0.03 H (0.00-0.00) K/mm3 Absolute Neuts (auto) 7.14 (1.70-7.20) K/mm3 Absolute Nucleated RBC 0.00 (0.00-0.00) K/mm3 Nucleated RBC % 0.0 (0-0.0) % PT 10.4 (9.50-12.1) Seconds INR 0.9 APTT 24.5 (23.9-30.70) Sec D-Dimer 1.77 H (0.19-0.50) mg/L Sodium 138 (137-145) mmol/L Potassium 4.4 (3.4-5.0) mmol/L Chloride 107 (98-107) mmol/L Carbon Dioxide 27 (22-30) mmol/L Anion Gap 4 (4-12) mmol/L BUN 13 (9-20) mg/dL Creatinine 0.92 (0.7-1.3) mg/dL Estim Creat Clear Calc 80 ml/min Estimated GFR > 60 (59 - ) Glucose 99 (65-110) mg/dL Calculated Osmolality 286 (285-295) mOsm/kg Lactic Acid 1.1 (0.4-2.0) mmol/L Calcium 8.5 (8.4-10.2) mg/dL Total Bilirubin 1.3 (0.2-1.3) mg/dL AST 66 H (17-59) U/L ALT 42 (6-50) U/L Alkaline Phosphatase 87 (38-126) U/L Troponin I 0.023 (0.000-0.034) ng/mL NT-Pro-B Natriuret Pep 2300 H (19.9-100) pg/mL Total Protein 7.9 (6.3-8.2) g/dL Albumin 4.4 (3.5-5.1) g/dL Imaging Data Attestation: I personally reviewed and interpreted this imaging study as follows: Radiologist's impression: chest x-ray shows CHF pattern with pleural effusions and pulmonary edema CTA of the chest shows no PE or dissection or aneurysms but there is CHF pattern without pneumonia process and noted COPD; there is a right moderate pleural effusion ECG Data EKG #1: Attestation: I personally reviewed and interpreted this ECG as follows: ECG completion date: 02/21/25 ECG completion time: 08:23 EKG Interpretation: normal rate, sinus rhythm, no ectopy, non-specific ST changes, normal QRS, normal QT and NL axis Discharge Plan Discharge Clinical Impression: Pleural effusion, Acute exacerbation of chronic obstructive pulmonary disease Acute exacerbation of CHF (congestive heart failure) Qualifiers: Heart failure type: unspecified Qualified Code(s): I50.9 - Heart failure, unspecified Patient Disposition: Acute Care Hospital Condition: Stable Patient Language: Frisian Prescriptions: No Action ipratropium-albuterol 0.5 mg-3 mg(2.5 mg base)/3 mL solution for nebulization 3 ml inhalation Q6-8H PRN (Reason: shortness of breath) Combivent Respimat 20-100 mcg/actuation mist 1 puff inhalation QID PRN (Reason: shortness of breath or wheezing) Rx Instructions: space evenly during waking hours metoprolol succinate 50 mg tablet extended release 24 hr See Rx Instructions .ROUTE .COMPLEX Qty: 90 2RF Dose Instruction: TAKE 1 TABLET BY MOUTH EVERY DAY Rx Instructions: TAKE 1 TABLET BY MOUTH EVERY DAY alprazolam 0.25 mg tablet 0.25 mg PO DAILY PRN (Reason: anxiety) Qty: 30 0RF atorvastatin 80 mg tablet See Rx Instructions .ROUTE .COMPLEX Qty: 90 1RF Dose Instruction: TAKE 1 TABLET BY MOUTH EVERYDAY AT BEDTIME Rx Instructions: TAKE 1 TABLET BY MOUTH EVERYDAY AT BEDTIME budesonide 0.5 mg/2 mL suspension for nebulization 0.5 mg inhalation Q12H PRN (Reason: shortness of breath or wheezing) aspirin [Enteric Coated Aspirin] 81 mg tablet,delayed release (DR/EC) 81 mg PO DAILY Qty: 90 1RF colchicine 0.6 mg capsule 0.6 mg PO DAILY PRN (Reason: gout flare) Qty: 180 1RF Rx Instructions: Treatment of acute gout flares (Colcrys): 1.2 mg (2 tabs) by mouth at first sign of flare, then 0.6 mg 1 hr later; not to exceed 1.8 mg in 1-hr period hydrochlorothiazide 25 mg tablet See Rx Instructions .ROUTE .COMPLEX Qty: 90 1RF Dose Instruction: TAKE 1 TABLET BY MOUTH EVERY DAY Rx Instructions: TAKE 1 TABLET BY MOUTH EVERY DAY furosemide [Lasix] 40 mg tablet 40 mg PO DAILY PRN (Reason: weight gain) Qty: 30 0RF Rx Instructions: Daily weights, if you gain more than 3lb within 1 day or 5 lbsin 1 week please take one tablet pantoprazole 40 mg tablet,delayed release (DR/EC) See Rx Instructions .ROUTE .COMPLEX Qty: 42 0RF Dose Instruction: TAKE 1 TABLET EVERY MORNING FOR 6 WEEKS Rx Instructions: TAKE 1 TABLET EVERY MORNING FOR 6 WEEKS trazodone 50 mg tablet See Rx Instructions .ROUTE .COMPLEX Qty: 30 0RF Dose Instruction: 50 MG ORALLY EVERY DAY AT BEDTIME NEEDED FOR SLEEP Rx Instructions: 50 MG ORALLY EVERY DAY AT BEDTIME NEEDED FOR SLEEP Follow-up/Referrals: Kobi Huntley DO [Primary Care Provider] - Time of Disposition: 10:34
--- OUTSIDE RECORDS SUMMARY | 2025-02-21 07:57 | XMS_ITS | Clinical Summary ---
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
--- OUTSIDE RECORDS SUMMARY | 2025-02-21 07:57 | XMS_ITS | Clinical Summary ---
Author Organization [facility] [place] Address [address] [place] [address] Phone Care Team Providers Care Spool Winder Name Role Phone Provider, None Primary Care [...] 10:18 AM CDT Height 180.3 cm (5' 11) 01/22/2022 10:18 AM CDT Body Mass Index 30.04 01/22/2022 10:18 AM CDT Plan of Treatment Health Maintenance Due Date Last Done Comments Hepatitis C Virus (HCV) Screening 1955 Cologuard 01/28/2001 Colonoscopy 01/28/2001 Colorectal Cancer Screening 01/28/2001 Immunochemical Fecal Occult Blood 01/28/2001 Zoster Immunization (1 of 2) 01/28/2006 Respiratory Syncytial Virus (RSV) Immunization (Adult) (1 - Risk 60-74 years 1-dose series) 2016 Pneumococcal Immunization (5 0+ years) (2 of 2 - PPSV23) 05/03/2020 03/08/2020 SARS-COV-2 Immunization (1 - season) 2024 Influenza Immunization (#1) 2025 Pneumococcal Immunization Combined Discontinued 2019 DTaP/Tdap/Td Immunization Discontinued 04/07/2021 TdaP Immunization Completed 04/07/2021 Hepatitis B Immunization Aged Out No longer eligible based on patient's age to complete this topic Human Papillomavirus (HPV) Immunization Aged Out No longer eligible b ased on patient's age to complete this topic Meningococcal Immunization (ACWY) Aged Out No longer eligible based on patient's age to complete this topic Rotavirus Immunization Aged Out No lo nger eligible based on patient's age to complete this topic Insurance [facility] MEDICARE Care Teams Spool Winder Relationship Specialty Start Date End Date Provider, None NANDINI PCP - General 01/24/21
--- OUTSIDE RECORDS SUMMARY | 2025-02-21 07:57 | XMS_ITS | Encounter Summary ---
Author Organization [facility] Address 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
--- OUTSIDE RECORDS SUMMARY | 2025-02-21 07:57 | XMS_ITS | Clinical Summary ---
Author Organization [facility] Address [address] [place] [address] Care Team Providers Care Cager Operator Name Role Phone Unavailable Primary Care [...]
--- OUTSIDE RECORDS SUMMARY | 2025-02-21 07:57 | XMS_ITS | Clinical Summary ---
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 Gender Identity Not on file Sexual Orientation [...] 3:31 PM CDT Height 181.6 cm (5' 11.5) 01/14/2024 3:31 PM CD T Body Mass Index 27.92 01/14/2024 3:31 PM CDT Plan of Treatment Health Maintenance Due Date Last Done Comments Colon Cancer Screening-Colonoscopy 1955 Depression Screening 1955 Hepatitis C Screening 1955 Prostate Cancer Screening-PSA 1956 Hepatitis B Screening 01/28/1974 Zoster Vaccine (1 of 2) 01/28/2006 Pneumococcal vaccine 65+ (2 of 2 - PPSV23) 05/03/2020 03/08/2020 Abdominal Aortic Aneurysm (AAA) Screen 01/28/2021 Well Visit 65+ 01/28/2021 Fall Risk Assessment 11/10/2024 11/11/2023 Influenza Vaccine (#1) 2025 DTaP/Tdap/Td Vaccine (2 - Td or Tdap) 04/07/2031 Medical Devices Implanted Type Area Issuer Device Identifier Shelf Expiration Date Model / Serial / Lot Depuy Orthopaed[employer] Inc [place] 58mm Sector Hip Shell Acetabular Gription Sterile Latex Free [id number] - [id number] Implanted:Qty: 1 on 11/11/2023 by Jose Carlos Saldana MD at [facility] Left: Hip Depuy Orthopaedics Inc 09/11/2033 [id number] / / [id number] Depuy [employer] Inc [place] 58mm 36mm Hip Neutral Liner Acetabular Altrx Sterile Latex Free [id number] - [id number] Implanted:Qty: 1 on 11/11/2023 by Jose Carlos Saldana MD at [facility] Left: Hip Depuy [employer] Inc 09/11/2028 [id number] / / [id number] Depuy Orth[employer] Inc Actis Collar Hip 9 High Offset Stem Femoral [id number] - [id number] Implanted:Qty: 1 on 11/11/2023 by Jose Carlos Saldana MD at [facility] Left: Hip Depuy [employer] Inc 08/11/2033 [id number] / / [id number] Depuy [employer] Inc Articul/Shashi 36mm Cementless Hip +8.5mm 07/25 Taper Head Femoral Latex Free 1365-36-330 - [id number] Implanted:Qty: 1 on 11/11/2023 by Jose Carlos Saldana MD at [facility] Left: Hip Depuy [employer] Inc 08/11/2028 1365-36-330 / / [id number] Insurance MEDICARE [facility] JE[place] [id number] Advance Directives For more information, please contact: [phone] * Full Code (Latest Code Status on File) Date Activated Date Inactivated Comments 11/11/2023 11:04 AM 11/11/2023 6:25 PM Care Teams Mail Order Clerk Relationship Specialty Start Date End Date Kobi Huntley DO [address] [place] [address] PCP - General Family Medicine 07/09/23 Jose Carlos Saldana MD [address] [place] [address] [address], [place] [address] Surgeon Orthopedic Surgery 11/11/23
--- OUTSIDE RECORDS SUMMARY | 2025-02-21 07:57 | XMS_ITS | Referral Summary ---
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 Gender Identity Not on file Sexual Orientation [...] 181.6 cm (5' 11.5) 01/14/2024 3:31 PM C DT Body Mass Index 27.92 01/14/2024 3:31 PM CDT Plan of Treatment Not on file Medical Devices Implanted Type Area Entry Level Project Engineer Device Identifier Shelf Expiration Date Model / Serial / Lot Depuy [employer]opa[employer] Inc [place] 58mm Sector Hip Shell Acetabular Gription Sterile Latex Free [id number] - [id number] Implanted:Qty: 1 on 11/11/2023 by Jose Carlos Saldana MD at [facility] Left: Hip Depuy [employer] Inc 09/11/2033 [id number] / / [id number] Depuy [employer] Inc [place] 58mm 36mm Hip Neutral Liner Acetabular Altrx Sterile Latex Free [id number] - [id number] Implanted:Qty: 1 on 11/11/2023 by Jose Carlos Saldana MD at [facility] Left: Hip Depuy [employer] Inc 09/11/2028 [id number] / / [id number] Depuy [employer] Inc Actis Collar Hip 9 High Offset Stem Femoral [id number] - [id number] Implanted:Qty: 1 on 11/11/2023 by Jose Carlos Saldana MD at [facility] Left: Hip Depuy [employer] Inc 08/11/2033 [id number] / / [id number] Depuy [employer] Inc Articul/Shashi 36mm Cementless Hip +8.5mm /14 Taper Head Femoral Latex Free 1365-36330 - [id number] Implanted:Qty: 1 on 11/11/2023 by Jose Carlos Saldana MD at [facility] Left: Hip Depuy [employer] Inc 08/11/2028 1365-36330 / / [id number] Insurance MEDICARE [employer] [place] [address] Advance Directives For more information, please contact: [phone] * Full Code (Latest Code Status on File) Date Activated Date Inactivated Comments 11/11/2023 11:04 AM 11/11/2023 6:25 PM Care Teams Wagon Winder Relationship Specialty Start Date End Date Kobi Huntley DO [address] [place] [address] PCP - General Family Medicine 07/09/23 Jose Carlos Saldana MD [address] [place] [address] [place] [address] Surgeon Orthopedic Surgery 11/11/23
--- OUTSIDE RECORDS SUMMARY | 2025-02-21 07:57 | XMS_ITS | Continuity of Care Document ---
Author Organization [facility], [facility] Address [address] [place] [address] Phone Care Team Providers Care Supervisor Water Treatment Plant Name Role Phone Yeison Morales OD Unavailable Unavailable Allergies, Adverse Reactions, Alerts Substance Reaction Status Criticality CIPROFLOXACIN HCL Unknown Active No Informa tion ciprofloxacin Unknown Active No Information Medications Medication Instructions Dosage Effective Dates (start - stop) Status Comments ASPIRIN (unknown strength) Not Available - Active Advance Directives Directive Yes / No Effective Date File Name No Information Encounters Encounter Description Practice Location Reason(s) For Visit Diagnoses Date Provider Providers Copied on Encounter [facility], [facility], [address] [place] [address], [id number], tel:[phone] [facility] Eye [facility] No Information Carmen Latham. [address] [place] [address], [id number], . tel:[phone] Family History Family Member Type Diagnosis Age At Onset Problem (finding) No Family history of HB P Problem (finding) No Family history of Ar thritis Problem (finding) No Family history of St rabismus Problem (finding) No Family hist ory of Macular Degeneration several Problem (finding) Heart Disease Problem (finding) No Family history of Re spiratory Disease Aunt Problem (finding) Diabetes mellitus Problem (finding) No Family history of Ca taracts Problem (finding) No Family history of Gl aucoma Problem (finding) No Family history of As thma Problem (finding) No Family history of St roke Problem (finding) No Family history of Re tinal Disorders Payers Payer name Insurance type Covered republican ID Authoriza tion(s) No Information Social History Type Description Quantity Date Captured Comments Sex Male Smoking Status No Information Chief Complaint And Reason For Visit No Information Reason For Referral Reason For Referral No Information History Of Present Illness Encounter Date Complaint History Of Prese nt Illness No Information Functional Status Date Functional Assessmen t No Information Instructions Date Instruction Additional Infor mation No Information Assessments Type Assessment Date No Information Patient Care Teams Name Effective Dates (start - stop) Status Members No Information
[2025-02-21 08:10] LABS: Hematocrit 42.4 % (37.0-46.0); Hemoglobin 13.4 g/dL (12.4-15.3); Immature Granulocyte Percent A 0.4 % (0.0-0.0); Lymphocytes Absolute Auto 0.57 K/mm3 (1.10-4.50); Mean Corpuscular HGB Conc 31.6 g/dL (32-36); Mean Corpuscular Hemoglobin 30.4 pg (27.0-31.0); Mean Corpuscular Volume 96.1 fL (78.0-102.0); Nucleated Red Blood Cells Absolute Auto 0.00 K/mm3 (0.00-0.00); Nucleated Red Blood Cells Perc 0.0 % (0-0.0); Platelet Count Result 339 K/mm3 (150-420); Red Blood Count 4.41 M/mm3 (4.70-6.10); White Blood Count 8.3 K/mm3 (4.8-10.8)
[2025-02-21 08:20] LABS: Alanine Aminotransferase 42 U/L (6-50); Albumin Level 4.4 g/dL (3.5-5.1); Alkaline Phosphatase 87 U/L (38-126); Anion Gap 4 mmol/L (4-12); Aspartate Amino Transferase 66 U/L (17-59); Bilirubin,Total 1.3 mg/dL (0.2-1.3); Blood Urea Nitrogen 13 mg/dL (9-20); Calcium 8.5 mg/dL (8.4-10.2); Carbon Dioxide 27 mmol/L (22-30); Chloride 107 mmol/L (98-107); Estimated CRCL calculation 80 ml/min; Estimated Glomerular Filt Rate > 60; Glucose 99 mg/dL (65-110); Osmolality Calculated 286 mOsm/kg (285-295); Sodium 138 mmol/L (137-145); Total Protein 7.9 g/dL (6.3-8.2)
[2025-02-21] MEDS: IPRATROPIUM 0.5 MG/ALBUTEROL SULFATE 2.5 MG AMPUL.NEB 3 ML INHALATION (08:25)
--- NOTE | 2025-02-21 08:30 | PC.NURSE ---
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 call light within reach.
[2025-02-21 08:32] LABS: NT Pro B Type Natriuretic Pept 2300 pg/mL (19.9-100); Troponin I 0.023 ng/mL (0.000-0.034)
[2025-02-21 08:39] LABS: INR 0.9; Partial Thromboplastin Time 24.5 Sec (23.9-30.70); Prothrombin Time 10.4 Seconds (9.50-12.1)
[2025-02-21 08:40] LABS: Potassium 4.4 mmol/L (3.4-5.0)
--- OUTSIDE RECORDS SUMMARY | 2025-02-21 08:50 | XMS_ITS | Encounter Summary ---
Author Organization [employer] Address 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
--- OUTSIDE RECORDS SUMMARY | 2025-02-21 08:50 | XMS_ITS | Continuity of Care Document ---
Author Organization [facility], [facility] Address [address] [place] [phone] Phone Care Team Providers Care Broadcast Engineer Name Role Phone Yeison Morales OD Unavailable [...] Diagnoses Date Provider Providers Copied on Encounter [facility], [facility], [address] [place] [address], [id number], tel:[phone] [facility] Eye [facility] No Information Carmen Latham. [address] [place] [address], [id number], . tel:[phone] Family History Family Member Type Diagnosis Age At Onset Problem (finding) No Family history of Re tinal Disorders Problem (finding) No Family history of St roke Problem (finding) No Family history of As thma Problem (finding) No Family history of Gl aucoma Problem (finding) No Family history of Ca taracts Aunt Problem (finding) Diabetes mellitus Problem (finding) No Family history of Re spiratory Disease several Problem (finding) Heart Disease Problem (finding) No Family hist ory of Macular Degeneration Problem (finding) No Family history of St rabismus Problem (finding) No Family history of Ar thritis Problem (finding) No Family history of HB P Payers Payer name Insurance type Covered alliance party ID Authoriza tion(s) No Information Social History [...]
--- OUTSIDE RECORDS SUMMARY | 2025-02-21 08:50 | XMS_ITS | Clinical Summary ---
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 Gender Identity Not on file Sexual [...] Tdap) 04/07/2031 Medical Devices Implanted Type Area Clinical Cytogeneticist Device Identifier Shelf Expiration Date Model / Serial / Lot Depuy [employer]opa[employer] Inc [place] 58mm Sector Hip Shell Acetabular Gription Sterile Latex Free [id number] - [id number] Implanted:Qty: 1 on 11/11/2023 by Jose Carlos Saldana MD at [facility] Left: Hip Depuy [employer] Inc 09/11/2033 [id number] / / [id number] Depuy [employer] Inc [place] 58mm 36mm Hip Neutral Liner Acetabular Altrx Sterile Latex Free [id number] - [id number] Implanted:Qty: 1 on 11/11/2023 by Jose Carlos Saldana MD at [facility] Left: Hip Depuy [employer] Inc 09/11/2028 [id number] / / [id number] Depuy [employer] Inc Actis Collar Hip 9 High Offset Stem Femoral [id number] - [id number] Implanted:Qty: 1 on 11/11/2023 by Jose Carlos Saldana MD at [facility] Left: Hip Depuy [employer] Inc 08/11/2033 [id number] / / [id number] Depuy [employer] Inc Articul/Shashi 36mm Cementless Hip +8.5mm 07/25 Taper Head Femoral Latex Free 1365-36-330 - [id number] Implanted:Qty: 1 on 11/11/2023 by Jose Carlos Saldana MD at [facility] Left: Hip Depuy [employer] Inc 08/11/2028 1365-36-330 / / [id number] Insurance MEDICARE [facility] JEWELL [place] [id number] Advance Directives For more information, please contact: [phone] * Full Code (Latest Code Status on File) Date Activated Date Inactivated Comments 11/11/2023 11:04 AM 11/11/2023 6:25 PM Care Teams Card Services Specialist Relationship Specialty Start Date End Date Kobi Huntley DO [address] [place] [address] PCP - General Family Medicine 07/09/23 Jose Carlos Saldana MD [address] [place] [address] [address] [address] Surgeon Orthopedic Surgery 11/11/23
--- OUTSIDE RECORDS SUMMARY | 2025-02-21 08:50 | XMS_ITS | Clinical Summary ---
Author Organization [facility] Address [address] [place] [address] Care Team Providers Care Garageman Name Role Phone Unavailable Primary Care Provider [...]
--- OUTSIDE RECORDS SUMMARY | 2025-02-21 08:50 | XMS_ITS | Clinical Summary ---
Author Organization [facility] Address [address] [place] [address] Phone Care Team Providers Care Silverlight Developer Name Role Phone Provider, None Primary [...] patient's age to complete this topic Insurance [facility] MEDICARE Member Subscriber Plan / Payer (Ef fective 2003-Present) Name:Stevie Albarado Member ID:[id number] Relation to Subscriber:Self Name:Stevie Albarado Subscriber ID:[id number] Payer ID:[id number] Group ID:Not on file Type:Not on file Address: [facility] [address] [facility] [employer] [facility] [place] [address] Care Teams Silverlight Developer Relationship Specialty Start Date End Date Provider, None NANDINI PCP - General 01/24/21
--- OUTSIDE RECORDS SUMMARY | 2025-02-21 08:50 | XMS_ITS | Clinical Summary ---
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
--- OUTSIDE RECORDS SUMMARY | 2025-02-21 08:50 | XMS_ITS | Referral Summary ---
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 Gender Identity Not on file Sexual [...] on file Medical Devices Implanted Type Area Cloth Calender Device Identifier Shelf Expiration Date Model / Serial / Lot Depuy [employer] Inc [place] 58mm Sector Hip Shell Acetabular Gription Sterile Latex Free [id number] - [id number] Implanted:Qty: 1 on 11/11/2023 by Jose Carlos Saldana MD at [facility] Left: Hip Depuy [employer] Inc 09/11/2033 [id number] / / [id number] Depuy [employer] Inc [place] 58mm 36mm Hip Neutral Liner Acetabular Altrx Sterile Latex Free [id number] - [id number] Implanted:Qty: 1 on 11/11/2023 by Jose Carlos Saldana MD at [facility] Left: Hip Depuy [employer] Inc 09/11/2028 [id number] / / [id number] Depuy [employer] Inc Actis Collar Hip 9 High Offset Stem Femoral [id number] - [id number] Implanted:Qty: 1 on 11/11/2023 by Jose Carlos Saldana MD at [facility] Left: Hip Depuy [employer] Inc 08/11/2033 [id number] / / [id number] Depuy [employer] Inc Articul/Shashi 36mm Cementless Hip +8.5mm /14 Taper Head Femoral Latex Free 1365-36330 - [id number] Implanted:Qty: 1 on 11/11/2023 by Jose Carlos Saldana MD at [facility] Left: Hip Depuy [employer] Inc 08/11/2028 1365-36330 / / [id number] Insurance MEDICARE [facility] [facility] Member Subscriber Plan / Payer (Ef fective 2022-Present) Name:Stevie Albarado Relation to Subscriber:Self Name:Stevie Albarado Payer ID:[id number] Group ID:Not on file Type:[employer] Address: [address] [place] [address], [place] [address] Advance Directives For more information, please contact: [phone] * Full Code (Latest Code Status on File) Date Activated Date Inactivated Comments 11/11/2023 11:04 AM 11/11/2023 6:25 PM Care Teams Hand Collator Relationship Specialty Start Date End Date Kobi Huntley DO [address] [place] [address] PCP - General Family Medicine 07/09/23 Jose Carlos Saldana MD [address] [place] [address] [place] [address] Surgeon Orthopedic Surgery 11/11/23
--- NOTE | 2025-02-21 08:51 | PC.NURSE ---
pt resting on stretcher. visitor at bedside. DR. Harden at bedside for patient update and plan of care.
--- NOTE | 2025-02-21 09:28 | PC.NURSE ---
patient updated per JULISSA Alvarado at this time. spouse at bedside. patient awaiting results.
--- NOTE | 2025-02-21 10:30 | PC.NURSE ---
patient resting on stretcher in ED 6, update provided per Dr. Davis pt agreeable to transfer to higher level of care/[facility]
[2025-02-21] MEDS: FUROSEMIDE INJ 20 MG/2 ML VIAL IV PUSH (11:07)
--- NOTE | 2025-02-21 11:15 | PC.NURSE ---
patient medicated and update provided. RN monitoring. spouse at bedside. call light within reach.
--- NOTE | 2025-02-21 12:18 | PC.NURSE ---
pt ambulatory to bathroom prior to departure. awake and alert at time of transfer with VSS.
== END 2025-02-21 12:23 | disposition short-term general hospital (02) ==
PROVIDERS: Emergency Provider Emergency Medicine; PCP Family Medicine
DX: J90 Pleural effusion, not elsewhere classified (principal); J44.1 Chronic obstructive pulmonary disease with (acute) exacerbation; I11.0 Hypertensive heart disease with heart failure; I50.9 Heart failure, unspecified; E78.5 Hyperlipidemia, unspecified; F17.210 Nicotine dependence, cigarettes, uncomplicated
CPT/HCPCS: 36415; 71046; 71275; 80053; 83605; 83880; 84484; 85025; 85380; 85610; 85730; 93005; 94640; 96374; 96375; 99285; J1938; J2919; Q9967

== ENCOUNTER 2025-02-21 13:18 | Inpatient (IN) | payer MEDICARE, OTHER, SELFPAY ==
--- OUTSIDE RECORDS SUMMARY | 2025-02-21 13:21 | XMS_ITS | Clinical Summary ---
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
--- OUTSIDE RECORDS SUMMARY | 2025-02-21 13:21 | XMS_ITS | Clinical Summary ---
Author Organization [facility] Address [address] [place] [address] Phone Care Team Providers Care Rubber Curer Name Role Phone Provider, None Primary Care [...] patient's age to complete this topic Insurance [facility] MEDICARE Member Subscriber Plan / Payer (Ef fective 2003-Present) Name:Stevie Albarado Member ID:[id number] Relation to Subscriber:Self Name:Stevie Albarado Subscriber ID:[id number] Payer ID:[id number] Group ID:Not on file Type:Not on file Address: [facility] [address] [facility] [employer] [facility] [address] Care Teams Rubber Curer Relationship Specialty Start Date End Date Provider, None NANDINI PCP - General 01/24/21
--- OUTSIDE RECORDS SUMMARY | 2025-02-21 13:21 | XMS_ITS | Clinical Summary ---
Author Organization [facility] Address [address] [place] [address] Care Team Providers Care Global Logistics Manager Name Role Phone Unavailable Primary Care [...]
--- OUTSIDE RECORDS SUMMARY | 2025-02-21 13:21 | XMS_ITS | Clinical Summary ---
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 Gender Identity Not on file Sexual Orientation [...] Tdap) 04/07/2031 Medical Devices Implanted Type Area Testing Machine Operator Device Identifier Shelf Expiration Date Model / Serial / Lot Depuy [employer] Inc [place] 58mm Sector Hip Shell Acetabular Gription Sterile Latex Free [id number] - [id number] Implanted:Qty: 1 on 11/11/2023 by Jose Carlos Saldana MD at [facility] Left: Hip Depuy Orth[employer] Inc 09/11/2033 [id number] / / [id number] Depuy [employer] Inc [place] 58mm 36mm Hip Neutral Liner Acetabular Altrx Sterile Latex Free [id number] - [id number] Implanted:Qty: 1 on 11/11/2023 by Jose Carlos Saldana MD at [facility] Left: Hip Depuy [employer] Inc 09/11/2028 [id number] / / [id number] Depuy [employer] Inc Actis Collar Hip 9 High Offset Stem Femoral [id number] - [id number] Implanted:Qty: 1 on 11/11/2023 by Jose Carlos Saldana MD at [facility] Left: Hip Depuy [employer] Inc 08/11/2033 [id number] / / [id number] Depuy [employer] Inc Articul/Shashi 36mm Cementless Hip +8.5mm 07/25 Taper Head Femoral Latex Free 1365-36-330 - [id number] Implanted:Qty: 1 on 11/11/2023 by Jose Carlos Saldana MD at [facility] Left: Hip Depuy [employer] Inc 08/11/2028 1365-36-330 / / [id number] Insurance MEDICARE [facility] [place] [id number] Advance Directives For more information, please contact: [phone] * Full Code (Latest Code Status on File) Date Activated Date Inactivated Comments 11/11/2023 11:04 AM 11/11/2023 6:25 PM Care Teams Stemming Machine Operator Relationship Specialty Start Date End Date Kobi Huntley DO [address] [place] [address] PCP - General Family Medicine 07/09/23 Jose Carlos Saldana MD [address] [place] [address] [address], [place] [address] Surgeon Orthopedic Surgery 11/11/23
--- OUTSIDE RECORDS SUMMARY | 2025-02-21 13:21 | XMS_ITS | Continuity of Care Document ---
Author Organization [facility], [facility] Address [address] [place] [id number] Phone Care Team Providers Care Lamp Replacer Name Role Phone Yeison Morales OD Unavailable [...] Diagnoses Date Provider Providers Copied on Encounter [facility], [facility], [address] [place] [address], [id number], tel:[phone] [facility] No Information Carmen Latham. [address] [place] [address], [id number], . tel:[phone] Family History Family Member Type Diagnosis Age At Onset Problem (finding) No Family history of HB P Problem (finding) No Family history of St rabismus Problem (finding) No Family hist ory of Macular Degeneration several Problem (finding) Heart Disease Aunt Problem (finding) Diabetes mellitus Problem (finding) No Family history of Ca taracts Problem (finding) No Family history of Gl aucoma Problem (finding) No Family history of Re tinal Disorders Problem (finding) No Family history of Ar thritis Problem (finding) No Family history of Re spiratory Disease Problem (finding) No Family history of As thma Problem (finding) No Family history of St roke Payers Payer name Insurance type Covered republican [...]
--- OUTSIDE RECORDS SUMMARY | 2025-02-21 13:21 | XMS_ITS | Encounter Summary ---
Author Organization [facility] Address 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
--- OUTSIDE RECORDS SUMMARY | 2025-02-21 13:21 | XMS_ITS | Referral Summary ---
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 Gender Identity Not on file Sexual Orientation [...] on file Medical Devices Implanted Type Area Cottrell Operator Device Identifier Shelf Expiration Date Model / Serial / Lot [employer] [place] 58mm Sector Hip Shell Acetabular Gription Sterile Latex Free [id number] - [id number] Implanted:Qty: 1 on 11/11/2023 by Jose Carlos Saldana MD at [facility] Left: Hip [employer] 09/11/2033 [id number] / / [id number] [employer] [place] 58mm 36mm Hip Neutral Liner Acetabular Altrx Sterile Latex Free [id number] - [id number] Implanted:Qty: 1 on 11/11/2023 by Jose Carlos Saldana MD at [facility] Left: Hip [employer] 09/11/2028 [id number] / / [id number] [employer] Actis Collar Hip 9 High Offset Stem Femoral [id number] - [id number] Implanted:Qty: 1 on 11/11/2023 by Jose Carlos Saldana MD at [facility] Left: Hip [employer] 08/11/2033 [id number] / / [id number] [employer] Articul/Shashi 36mm Cementless Hip +8.5mm /14 Taper Head Femoral Latex Free [id number] - [id number] Implanted:Qty: 1 on 11/11/2023 by Jose Carlos Saldana MD at [facility] Left: Hip [employer] 08/11/2028 [id number] / / [id number] Insurance MEDICARE [place] [address] Advance Directives For more information, please contact: [phone] * Full Code (Latest Code Status on File) Date Activated Date Inactivated Comments 11/11/2023 11:04 AM 11/11/2023 6:25 PM Care Teams Aircraft Electronics Technical Officer Relationship Specialty Start Date End Date Kobi Huntley DO [address] [place] [address] PCP - General Family Medicine 07/09/23 Jose Carlos Saldana MD [address] [place] [address] [place] [address] Surgeon Orthopedic Surgery 11/11/23
[2025-02-21 13:28] VITALS: BP 179/73; PULSE 57; RESP 16; TEMP 36.6; O2SAT 99
--- NOTE | 2025-02-21 13:59 | ADMGEN ---
This patient, Stevie Albarado, was admitted to Medical Room 345-01. Patient/family oriented to hospital policies and general routines including ID bracelet, bed and alarms, visiting hours, pain management, procedures, bathroom and other care routines, personal items, smoking policy, room service/diet, and visiting hours. Information on how to activate the Rapid Response Team has been discussed. Patient/Family are encouraged to report perceived risks to care and to ask questions if they do not understand what they are told or what they should do.
--- NOTE | 2025-02-21 14:33 | P.HP_ITS ---
H&P: HPI History of Present Illness Date/Time: 02/21/25 14:33 Chief Complaint: SOB Narrative: 70-year-old male HTN, CHF not on home oxygen presented to outside ER with complaints of SOB, patient was then transferred as a direct admit, with ongoing complaints SOB when trying to engage in activities, suspecting a flare-up of his COPD. The patient reported that his usual medications did not alleviate symptoms, leading him to take four prednisone tablets without relief. The patient subsequently went in to the emergency room where it was noted that he possibly had congestive heart failure with fluid on his lungs and swelling near his ankles. Chest x-rays and CT scans were performed to rule out blood clots, the patient received 40 mg IV Lasix as well as 125 Solu-Medrol and breathing treatments, following these interventions the patient's breathing has improved and he is not requiring any supplemental oxygen at this time. The patient was concerned about previous over diureses switched led him to become dehydrated and possible renal failure. [facility] Past Medical History Medical History Hyperlipidemia Hypertension Prediabetes Leg wound, left Nicotine addiction Pulmonary hypertension Left leg cellulitis COPD (chronic obstructive pulmonary disease) Surgical History Surgical History History of tonsillectomy Previous back surgery Rods and screws, 2001 Family History Family History Father Heart disease Mother Lung cancer Social History Social History Smoking packs per day: 1 Smoking cigarettes per day: 20.0 Years smoked: 45 Smoking pack-years: 45.00 Smoking status: Current every day smoker Tobacco type: e-cigarettes/vaping Second hand tobacco smoke exposure: Yes Alcohol intake: former Alcohol use details: weekends Substance use: never Substance use type: does not use Do You Feel Safe in your Home?: Yes Lack of Transportation: No Lack of Food: Never True Current Housing: I Have Housing Concerned About Future Housing: No Difficulty Paying Gas/Electric Bills: No Difficulty Paying for Meds: No Currently Unemployed: No Education: High School Diploma/GED Difficulty w/ Childcare or Family Care: No Living arrangements: with family Additional living arrangements comments: Occupation/Education: retired Spiritual care concerns: No Meds Home Medications and Allergies Home Medications ?Medication ?Instructions ?Recorded ?Confirmed ?Type ipratropium 0.5 mg-albuterol 3 mg 3 ml inhalation Q6-8H PRN 04/10/21 02/21/25 History (2.5 mg base)/3 mL nebulization shortness of breath soln aspirin 81 mg tablet,delayed 81 mg PO DAILY #90 tabs 07/17/23 02/21/25 Rx release (Enteric Coated Aspirin) ipratropium 20 mcg-albuterol 100 1 puff inhalation QID PRN 07/07/24 02/21/25 History mcg/actuation mist for inhalation shortness of breath or wheezing (Combivent Respimat) colchicine 0.6 mg capsule 0.6 mg PO DAILY PRN gout flare 07/23/24 02/21/25 Rx #180 caps budesonide 0.5 mg/2 mL suspension 0.5 mg inhalation Q12H PRN 12/16/24 02/21/25 History for nebulization shortness of breath or wheezing alprazolam 0.25 mg tablet 0.25 mg PO DAILY PRN anxiety #30 12/31/24 02/21/25 Rx tabs atorvastatin 80 mg tablet See Rx Instructions .Route 12/31/24 02/21/25 Rx .COMPLEX #90 tabs metoprolol succinate 50 mg See Rx Instructions .Route 12/31/24 02/21/25 Rx tablet,extended release 24 hr .COMPLEX #90 tabs furosemide 40 mg tablet (Lasix) 40 mg PO DAILY PRN weight gain #30 01/12/25 02/21/25 Rx tabs trazodone 50 mg tablet See Rx Instructions .Route 02/01/25 02/21/25 Rx .COMPLEX #30 tabs budesonide 160 mcg-glycopyr 9 2 inh inhalation BID 02/21/25 02/21/25 History mcg-formot 4.8 mcg/actuation HFA inhaler (Breztri Aerosphere) hydralazine 10 mg tablet 10 mg PO BID 02/21/25 02/21/25 History Allergies Allergy/AdvReac Type Severity Reaction Status Date / Time No Known Allergies Allergy Verified 02/21/25 08:38 Vital Signs Vital Signs - 24 hr 02/21/25 13:28 Temperature 97.9 F Pulse Rate 57 L Respiratory Rate 16 Blood Pressure 179/73 H Pulse Oximetry 99 Exam Narrative: General: A well-developed, nontoxic-appearing gentlemen, Spouse is by the bedside, on RA HEENT: PERRL, EOMI. Oral mucosa moist. Neck: Supple. No midline cervical tenderness. Respiratory: Respirations are non- labored and lungs are clear to auscultation bilaterally. Cardiovascular: Regular rate and rhythm with S1-S2. Gastrointestinal: Abdomen is soft, non-tender, and non-distended with positive bowel sounds. Skin: Warm and dry. No rash or lesions on limited exam. Extremities: No cyanosis, clubbing, or edema. Radial and pedal pulses intact. Neurological: Alert and oriented. Cranial nerves 2-12 are grossly intact. No gross focal deficits to casual conversation. Psychiatric: Pleasant and cooperative with normal mood and affect. Judgment and insight intact. H&P: Results Labs Labs: Lab Results 02/21/25 Range/Units 08:06 WBC 8.3 (4.8-10.8) K/mm3 RBC 4.41 L (4.70-6.10) M/mm3 Hgb 13.4 (12.4-15.3) g/dL Hct 42.4 (37.0-46.0) % MCV 96.1 (78.0-102.0) fL MCH 30.4 (27.0-31.0) pg MCHC 31.6 L (32-36) g/dL RDW 13.1 (11.6-14.4) % Plt Count 339 (150-420) K/mm3 MPV 9.4 (8.7-11.0) fl Immature Gran % (Auto) 0.4 H (0.0-0.0) % Neut % (Auto) 86.4 H (50.0-70.0) % Lymph % (Auto) 6.9 L (18.0-42.0) % Garza % (Auto) 2.8 (2.0-11.0) % Eos % (Auto) 2.5 (1.0-6.0) % Baso % (Auto) 1.0 (0.0-1.0) % Lymph # (Auto) 0.57 L (1.10-4.50) K/mm3 Garza # (Auto) 0.23 (0.10-0.90) K/mm3 Eos # (Auto) 0.21 (0.02-0.50) K/mm3 Baso # (Auto) 0.08 (0.00-0.10) K/mm3 Abs Immat Gran (auto) 0.03 H (0.00-0.00) K/mm3 Absolute Neuts (auto) 7.14 (1.70-7.20) K/mm3 Absolute Nucleated RBC 0.00 (0.00-0.00) K/mm3 Nucleated RBC % 0.0 (0-0.0) % PT 10.4 (9.50-12.1) Seconds INR 0.9 APTT 24.5 (23.9-30.70) Sec D-Dimer 1.77 H (0.19-0.50) mg/L Sodium 138 (137-145) mmol/L Potassium 4.4 (3.4-5.0) mmol/L Chloride 107 (98-107) mmol/L Carbon Dioxide 27 (22-30) mmol/L Anion Gap 4 (4-12) mmol/L BUN 13 (9-20) mg/dL Creatinine 0.92 (0.7-1.3) mg/dL Estim Creat Clear Calc 80 ml/min Estimated GFR > 60 (59 - ) Glucose 99 (65-110) mg/dL Calculated Osmolality 286 (285-295) mOsm/kg Lactic Acid 1.1 (0.4-2.0) mmol/L Calcium 8.5 (8.4-10.2) mg/dL Total Bilirubin 1.3 (0.2-1.3) mg/dL AST 66 H (17-59) U/L ALT 42 (6-50) U/L Alkaline Phosphatase 87 (38-126) U/L Troponin I 0.023 (0.000-0.034) ng/mL NT-Pro-B Natriuret Pep 2300 H (19.9-100) pg/mL Total Protein 7.9 (6.3-8.2) g/dL Albumin 4.4 (3.5-5.1) g/dL Pulse Oximetry SpO2 results: 99% RA Attestation: I personally reviewed and interpreted this pulse oximetry as follows: ECG Attestation: I personally reviewed and interpreted this ECG as follows: ECG completion date: 02/21/25 Interpretation: Measurements Intervals [place] Rate: 75 P: 77 MO: 138 QRS: 22 QRSD: 100 T: 71 QT: 388 QTc: 436 Interpretive Statements SINUS RHYTHM PROBABLE INFERIOR MYOCARDIAL INFARCTION , PROBABLY OLD [35 ms Q WAVE IN II/aVF] ABNORMAL ECG Compared to ECG 12/21/2024 14:37:37 No significant changes Electronically Signed On 02-21-2025 11:37:21 CDT by Kyaw Echeverria M.D. Imaging CT scan - chest: Radiologist's impression: Findings: Stable mildly prominent mediastinal lymph nodes. There is no filling defect in the pulmonary arterial tree to suggest pulmonary embolus. There is no evidence of aortic dissection or aneurysm. No pericardial effusion. Moderate right pleural effusion and minimal left pleural effusion are present. There is mild diffuse interstitial edema. There is mild to moderate emphysema. There is mild bibasilar atelectatic change. Images through the upper abdomen reveal no abnormalities. Impression: No evidence of pulmonary embolus, aortic dissection, or aortic aneurysm. Moderate right pleural effusion minimal left pleural effusion. Mild interstitial edema and mild bibasilar atelectatic change. Mild to moderate emphysema. Assessment and Plan Assessment and plan (1) (HFpEF) heart failure with preserved ejection fraction: Code(s): I50.30 - Unspecified diastolic (congestive) heart failure Status: Acute Assessment and Plan: - supplemental O2 as needed -continue telemetry monitoring - elevate head of bed 30-45 degrees -Strict I&O - fluid restriction, daily weights -EKG, serial troponins Check BNP in 48 hours Monitor renal function and electrolytes keep K+ > 4 magnesium > 2 (2) Acute exacerbation of CHF (congestive heart failure): Qualifiers: Heart failure type: unspecified Qualified Code(s): I50.9 - Heart failure, unspecified Code(s): I50.9 - Heart failure, unspecified Status: Acute Assessment and Plan: BNP =2300 last echocardiogram 09/15/2024, EF is 60-65%. mild mitral valve regurgitation -continue telemetry monitoring continue strict I&O monitor and record -cardiology consulted in the am (3) Hypertension: Code(s): I10 - Essential (primary) hypertension Status: Chronic Assessment and Plan: -continue home medications - BP slightly elevated 179/73 (4) Pulmonary hypertension: Code(s): I27.20 - Pulmonary hypertension, unspecified Status: Acute Assessment and Plan: - as evidence CTA, moderate right pleural effusion minimal left pleural effusion (5) JESSE (obstructive sleep apnea): Code(s): G47.33 - Obstructive sleep apnea (adult) (pediatric) Status: Acute Assessment and Plan: - use home CPAP with settings Plan Continue home medications: VTE Prophylaxis: SCDs, enoxaparin subQ DIET:heart healthy Anticipated hospital stay: > 2 days Code Status: full code Hospitalist MIPS Advance Care Plan I have confirmed that the patient's Advanced Care Plan is present, code status is documented, or surrogate decision maker is listed in patient medical record.: Yes Medication Reconciliation I have utilized all available resources to obtain, update and review the patients current medications (includes all prescriptions, OTC, herbals, cannabis, and nutritional supplements).: Yes
[2025-02-21] MEDS: FUROSEMIDE INJ 40 MG/4 ML VIAL IV PUSH (17:49)
[2025-02-21 20:00] VITALS: BP 150/71; PULSE 67; PULSE 78; RESP 20; TEMP 36.7; O2SAT 95
[2025-02-21] MEDS: ATORVASTATIN 40 MG TABLET 80 MG BY MOUTH (21:22)
[2025-02-22] VITALS (8 sets, daily range): BP systolic 146–174; BP diastolic 61–81; PULSE 52–65; RESP 16–20; TEMP 36.7; O2SAT 94–98
--- NOTE | 2025-02-22 06:40 | P.CONCA_ITS ---
Assessment and Plan Assessment and plan (1) (HFpEF) heart failure with preserved ejection fraction: Code(s): I50.30 - Unspecified diastolic (congestive) heart failure Status: Acute Assessment and Plan: Acute on chronic diastolic heart failure exacerbation. Mild exacerbation. Feeling much better after one dose of IV furosemide. No evidence of CHF now on exam. (2) Hypertension: Code(s): I10 - Essential (primary) hypertension Status: Chronic Assessment and Plan: Poorly controlled. PCP fullow up (3) Pulmonary hypertension: Code(s): I27.20 - Pulmonary hypertension, unspecified Status: Acute Assessment and Plan: Mild. Follows with a pulmonolgist. History of Present Illness History of Present Illness Consult date/time: 02/22/25 06:40 Requesting physician: Sofya Youngblood APRN Consult reason: congestive heart failure Reason For Visit: CHF Narrative: Stevie Albarado is a 70 year old male with COPD, hypertension, and hyperlipidemia. He presented to [facility] with a chief complaint of shortness of breath and was transferred to [facility] because of pleural effusion. Cardiology is consulted for CHF. He reports resolution of his symptoms after receiving a breathing treatment and IV furosemide. He denies having any chest pain, palpitations, swelling. He is known to have normal LV systolic function with grade I diastolic dysfunction. He is lying comfortably in bed at the time of my evaluation and does not have any specific complaints. Review of Systems 2 Review of Systems: All systems reviewed & are unremarkable except as noted in HPI and below PMFSH Past Medical History Medical History Hyperlipidemia Hypertension Prediabetes Leg wound, left Nicotine addiction Pulmonary hypertension Left leg cellulitis COPD (chronic obstructive pulmonary disease) Surgical History Surgical History History of tonsillectomy Previous back surgery Rods and screws, 2001 Family History Family History Father Heart disease Mother Lung cancer Social History Social History Smoking packs per day: 1 Smoking cigarettes per day: 20.0 Years smoked: 45 Smoking pack-years: 45.00 Smoking status: Current every day smoker Tobacco type: e-cigarettes/vaping Second hand tobacco smoke exposure: Yes Alcohol intake: former Alcohol use details: weekends Substance use: never Substance use type: does not use Do You Feel Safe in your Home?: Yes Lack of Transportation: No Lack of Food: Never True Current Housing: I Have Housing Concerned About Future Housing: No Difficulty Paying Gas/Electric Bills: No Difficulty Paying for Meds: No Currently Unemployed: No Education: High School Diploma/GED Difficulty w/ Childcare or Family Care: No Living arrangements: with family Additional living arrangements comments: Occupation/Education: retired Spiritual care concerns: No Meds Home Medications and Allergies Home Medications ?Medication ?Instructions ?Recorded ?Confirmed ?Type ipratropium 0.5 mg-albuterol 3 mg 3 ml inhalation Q6-8H PRN 04/10/21 02/21/25 History (2.5 mg base)/3 mL nebulization shortness of breath soln aspirin 81 mg tablet,delayed 81 mg PO DAILY #90 tabs 07/17/23 02/21/25 Rx release (Enteric Coated Aspirin) ipratropium 20 mcg-albuterol 100 1 puff inhalation QID PRN 07/07/24 02/21/25 History mcg/actuation mist for inhalation shortness of breath or wheezing (Combivent Respimat) colchicine 0.6 mg capsule 0.6 mg PO DAILY PRN gout flare 07/23/24 02/21/25 Rx #180 caps budesonide 0.5 mg/2 mL suspension 0.5 mg inhalation Q12H PRN 12/16/24 02/21/25 History for nebulization shortness of breath or wheezing alprazolam 0.25 mg tablet 0.25 mg PO DAILY PRN anxiety #30 12/31/24 02/21/25 Rx tabs atorvastatin 80 mg tablet See Rx Instructions .Route 12/31/24 02/21/25 Rx .COMPLEX #90 tabs metoprolol succinate 50 mg See Rx Instructions .Route 12/31/24 02/21/25 Rx tablet,extended release 24 hr .COMPLEX #90 tabs furosemide 40 mg tablet (Lasix) 40 mg PO DAILY PRN weight gain #30 01/12/25 02/21/25 Rx tabs trazodone 50 mg tablet See Rx Instructions .Route 02/01/25 02/21/25 Rx .COMPLEX #30 tabs budesonide 160 mcg-glycopyr 9 2 inh inhalation BID 02/21/25 02/21/25 History mcg-formot 4.8 mcg/actuation HFA inhaler (Breztri Appianphere) hydralazine 10 mg tablet 10 mg PO BID 02/21/25 02/21/25 History Allergies Allergy/AdvReac Type Severity Reaction Status Date / Time No Known Allergies Allergy Verified 02/21/25 08:38 Vital Signs Vital Signs - 24 hr 02/21/25 13:28 02/21/25 19:41 02/21/25 20:00 Temperature 36.6 C Pulse Rate 57 L 78 Respiratory Rate 16 Blood Pressure 179/73 H Pulse Oximetry 99 Oxygen Delivery Room Air 02/21/25 20:00 02/21/25 22:47 02/22/25 00:00 Temperature 36.7 C Pulse Rate 67 59 L Respiratory Rate 20 Blood Pressure 150/71 H Pulse Oximetry 95 Oxygen Delivery CPAP 02/22/25 00:00 02/22/25 04:00 02/22/25 04:00 Temperature 36.7 C 36.7 C Pulse Rate 60 52 L 63 Respiratory Rate 16 20 Blood Pressure 158/61 H 146/65 H Pulse Oximetry 97 96 Oxygen Delivery 02/22/25 04:07 Temperature Pulse Rate Respiratory Rate Blood Pressure Pulse Oximetry Oxygen Delivery CPAP Exam 2 Const: General: comfortable, no acute distress, alert and awake O rientation/consciousness: patient oriented x3 HENMT: Head: normal to inspection Eyes: General: appearance normal, both eyes and all related structures P upils: Equal, round and reactive pupils present Neck: Neck: normal visual inspection, supple and no JVD Carotids: normal carotid upstroke and no bruits Resp: Effort & Inspection: normal respiratory effort Auscultation: crackles on the right at the base and diminished lung sounds Cardio: Rate: regular rate Rhythm: regular rhythm Heart sounds: S1 normal heart sound present, S2 normal heart sound present and no murmurs GI: Auscultation: normal bowel sounds Skin: General skin exam: normal color Neuro: General: patient oriented x3 Cranial nerves: Yes Equal, round and reactive pupils present Extrem: General: normal to inspection Other: no edema Psych: Appearance: grossly normal Mental Status: mental status grossly normal Results Labs and Meds 02/22/25 06:44 02/22/25 06:44 Lab results: Intake and Output 02/21/25 02/21/25 02/22/25 15:59 23:59 07:59 Intake Total 1030 Balance 1030 Intake: Oral 1030 Other: # Unmeasured Voids 1 Patient Weight 02/22/25 23:59 Weight 82.4 kg
[2025-02-22 07:11] LABS: Hematocrit 40.3 % (42.0-52.0); Hemoglobin 13.2 g/dL (14.0-18.0); Immature Granulocyte Percent A 0.9 % (0-0.5); Lymphocytes Absolute Auto 0.84 K/mm3 (0.9-3.2); Mean Corpuscular HGB Conc 32.8 g/dl (32-36); Mean Corpuscular Hemoglobin 30.7 pg (26-34); Mean Corpuscular Volume 93.7 fl (80-100); Nucleated Red Blood Cells Absolute Auto 0.000 K/mm3 (0.0-0.012); Nucleated Red Blood Cells Perc 0.0 % (0.0-0.2); Platelet Count Result 334 k/mm3 (150-375); Red Blood Count 4.30 M/mm3 (4.6-6.20); White Blood Count 9.4 K/mm3 (4.5-10.0)
[2025-02-22 07:31] LABS: Anion Gap 7 mmol/L (4-12); Blood Urea Nitrogen 26 mg/dL (9-20); Calcium 8.6 mg/dL (8.4-10.2); Carbon Dioxide 27 mmol/L (22-30); Chloride 102 mmol/L (98-107); Estimated CRCL calculation 55 ml/min; Estimated Glomerular Filt Rate 60; Glucose 120 mg/dL (65-110); Potassium 4.0 mmol/L (3.4-5.0); Sodium 136 mmol/L (137-145)
[2025-02-22 07:34] LABS: NT Pro B Type Natriuretic Pept 2610 pg/mL (19.9-100)
[2025-02-22] MEDS: ASPIRIN 81 MG ENTERIC TABLET PO (09:51)
[2025-02-22] MEDS: METOPROLOL SUCCINATE EXT REL 50 MG TABCR BY MOUTH (09:52)
--- NOTE | 2025-02-22 12:07 | P.DS_ITS ---
DS: Admitting Diagnosis Discharge Date 02/22/25 Admitting Diagnosis CHF exacerbation DS: Discharge Diagnosis Discharge Diagnosis (1) (HFpEF) heart failure with preserved ejection fraction: Code(s): I50.30 - Unspecified diastolic (congestive) heart failure Status: Acute (2) Acute exacerbation of CHF (congestive heart failure): Qualifiers: Heart failure type: unspecified Qualified Code(s): I50.9 - Heart failure, unspecified Code(s): I50.9 - Heart failure, unspecified Status: Inactive (3) Hypertension: Code(s): I10 - Essential (primary) hypertension Status: Chronic (4) Pulmonary hypertension: Code(s): I27.20 - Pulmonary hypertension, unspecified Status: Acute (5) JESSE (obstructive sleep apnea): Code(s): G47.33 - Obstructive sleep apnea (adult) (pediatric) Status: Acute DS: Summary Hospital Course Hospital Course: 70-year-old male HTN, CHF not on home oxygen presented to [facility] ER with complaints of SOB, patient was then transferred as a direct admit, with ongoing complaints SOB when trying to engage in activities, suspecting a flare-up of his COPD. The patient reported that his usual medications did not alleviate symptoms, leading him to take four prednisone tablets without relief. The patient subsequently went in to the emergency room where it was noted that he possibly had congestive heart failure with fluid on his lungs and swelling near his ankles. Chest x-rays and CT scans were performed to rule out blood clots, the patient received 40 mg IV Lasix as well as 125 Solu-Medrol and breathing treatments, following these interventions the patient's breathing has improved a nd he is not requiring any supplemental oxygen at this time. Cardiology was consulted on patient. He last had Echo back in 09/2024 and they did not recommend getting another at this time. Discharge home with follow up with PCP. Time Spent with Patient Time attestation: Total time spent providing and/or coordinating discharge services: Exam Narrative: GENERAL: Comfortable, no acute distress HENMT: moist mucous membranes EYES: EOM intact b/l NECK: no lymphadenopathy RESPIRATORY: clear to auscultation, no increased respiratory effort CARDIO: Regular rate and rhythm, no pedal edema GI: soft, nontender, bowel sounds present SKIN/EXTREMITIES: no rashes, no edema, no redness or tenderness NEURO: PROM intact, answers questions appropriately, A&O x4 DS: Data Data Completed and Pending Labs on day of discharge: Labs from last 24 hours 02/22/25 06:44 WBC 9.4 RBC 4.30 L Hgb 13.2 L D Hct 40.3 L MCV 93.7 MCH 30.7 MCHC 32.8 RDW 13.0 Plt Count 334 MPV 9.1 Immature Gran % (Auto) 0.9 H Neut % (Auto) 82.2 H Lymph % (Auto) 9.0 L [place] % (Auto) 7.8 Eos % (Auto) 0.0 Baso % (Auto) 0.1 L Lymph # (Auto) 0.84 L [place] # (Auto) 0.7 H Eos # (Auto) 0.0 Baso # (Auto) 0.0 Abs Immat Gran (auto) 0.08 H Absolute Neuts (auto) 7.7 H Absolute Nucleated RBC 0.000 Nucleated RBC % 0.0 Sodium 136 L Potassium 4.0 Chloride 102 Carbon Dioxide 27 Anion Gap 7 BUN 26 H D Creatinine 1.20 Estim Creat Clear Calc 55 Estimated GFR 60 Glucose 120 H Calcium 8.6 NT-Pro-B Natriuret Pep 2610 H Discharge Plan Discharge Consulting providers: Kyaw Echeverria Discharging Clinician: Tonya Myers Patient Disposition: Home Activity: no preference Diet: low sodium Discharge Instructions: Take medications as prescribed Maintain a cardiac diet, 2 g sodium, do not over hydrate Remain active Monitor urine output Daily weights, if you gain more than 3 lb within 1 day or 5 lb in 1 week notify your primary care provider If you develop chest pain, shortness breath, fever greater than 101, nausea, or vomiting notify a clinician or come to the emergency department Take hydrochlorothiazide as needed for lower extremity swelling Follow-up with primary care provider within 1-2 weeks Thank you for [facility] for your healthcare needs Patient Instructions: Antibiotic Form Patient Language: Burundian Stand Alone Forms: General Discharge Information Follow-up/Referrals: Kobi Huntley DO [Primary Care Provider] - Discharge Medications: Continued ipratropium-albuterol 0.5 mg-3 mg(2.5 mg base)/3 mL solution for nebulization 3 ml inhalation Q6-8H PRN (Reason: shortness of breath) Combivent Respimat 20-100 mcg/actuation mist 1 puff inhalation QID PRN (Reason: shortness of breath or wheezing) Rx Instructions: space evenly during waking hours metoprolol succinate 50 mg tablet extended release 24 hr See Rx Instructions .ROUTE .COMPLEX Qty: 90 2RF Dose Instruction: TAKE 1 TABLET BY MOUTH EVERY DAY Rx Instructions: TAKE 1 TABLET BY MOUTH EVERY DAY alprazolam 0.25 mg tablet 0.25 mg PO DAILY PRN (Reason: anxiety) Qty: 30 0RF atorvastatin 80 mg tablet See Rx Instructions .ROUTE .COMPLEX Qty: 90 1RF Dose Instruction: TAKE 1 TABLET BY MOUTH EVERYDAY AT BEDTIME Rx Instructions: TAKE 1 TABLET BY MOUTH EVERYDAY AT BEDTIME budesonide 0.5 mg/2 mL suspension for nebulization 0.5 mg inhalation Q12H PRN (Reason: shortness of breath or wheezing) hydralazine 10 mg tablet 10 mg PO BID Breztri Aerosphere 160-9-4.8 mcg/actuation HFA aerosol inhaler 2 inh INHALATION BID aspirin [Enteric Coated Aspirin] 81 mg tablet,delayed release (DR/EC) 81 mg PO DAILY Qty: 90 1RF colchicine 0.6 mg capsule 0.6 mg PO DAILY PRN (Reason: gout flare) Qty: 180 1RF Rx Instructions: Treatment of acute gout flares (Colcrys): 1.2 mg (2 tabs) by mouth at first sign of flare, then 0.6 mg 1 hr later; not to exceed 1.8 mg in 1-hr period trazodone 50 mg tablet See Rx Instructions .ROUTE .COMPLEX Qty: 30 0RF Dose Instruction: 50 MG ORALLY EVERY DAY AT BEDTIME NEEDED FOR SLEEP Rx Instructions: 50 MG ORALLY EVERY DAY AT BEDTIME NEEDED FOR SLEEP No Action furosemide [Lasix] 40 mg tablet 40 mg PO DAILY PRN (Reason: weight gain) Qty: 30 0RF Rx Instructions: Daily weights, if you gain more than 3lb within 1 day or 5 lbsin 1 week please take one tablet Date of admission: 02/21/25 13:38 Primary Care Provider: Kobi Huntley Admitting Provider: Morgan Burton Attending physician on admission: Morgan Burton Condition: Stable
== END 2025-02-22 13:00 | disposition home or self-care (01) | DRG 291 ==
PROVIDERS: Nurse Practitioner; Admitting Provider Internal Medicine; PCP Family Medicine; Visit Provider Internal Medicine Critical Care Medicine
DX: I11.0 Hypertensive heart disease with heart failure (principal); I50.33 Acute on chronic diastolic (congestive) heart failure; E78.5 Hyperlipidemia, unspecified; R73.03 Prediabetes; J44.9 Chronic obstructive pulmonary disease, unspecified; F17.290 Nicotine dependence, other tobacco product, uncomplicated; G47.33 Obstructive sleep apnea (adult) (pediatric)
CPT/HCPCS: 36415; 80048; 83880; 85025; A9270; J1938

== ENCOUNTER 2025-07-13 09:10 | Outpatient (CLI) | payer MEDICARE, OTHER, SELFPAY ==
--- OUTSIDE RECORDS SUMMARY | 2025-07-13 09:42 | XMS_ITS | Clinical Summary ---
Author Organization [facility] Address [address] [place] [address] Care Team Providers Care Supply Chain Business Analyst Name Role Phone Unavailable Primary Care Provider [...] Vaccines (1 of 2) 01/28/2006 COVID-19 Vaccine (1 - 2024-2 6 season) 2025 Influenza Adult (#1) 2025 RSV Immunization or 60+ Years (1 - 1-dose 75+ series) 01/28/2031 Hepatitis A Vaccines Aged Out No long er eligible based on patient's age to complete this topic Meningococcal B Vaccine Aged Out No l onger eligible based on patient's age to complete this topic Meningococcal Vaccine Aged Out No kay sharon eligible based on patient's age to complete this topic RSV Immunizations Under 20 Months Aged Out No longer eligible based on patient's age to complete this topic
--- OUTSIDE RECORDS SUMMARY | 2025-07-13 09:42 | XMS_ITS | Clinical Summary ---
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
--- OUTSIDE RECORDS SUMMARY | 2025-07-13 09:42 | XMS_ITS | Clinical Summary ---
Author Organization [facility] Address [address] [place] [address] Phone Care Team Providers Care Shook Splicer Name Role Phone Provider, None Primary Care [...] (DELTASONE) 10 MG TabletIndicatio ns:Centrilobula r emphysema Take 1 Tablet by mouth daily. 10 [...] Screening 01/28/2001 Immunochemical Fecal Occult Blood 01/28/2001 Medicare Initial AWV [id number] 04/12/2004 Respiratory Syncytial Virus (RSV) Immunization (Adult) (1 - Risk 50-74 years 1-dose series) 01/28/2006 Zoster Immunization (1 of 2) 01/28/2006 Pneumococcal Immunization (5 0+ years) (2 of 2 - PPSV23, PCV20, or PCV21) 05/03/2020 03/08/2020 Influenza Immunization (#1) 2025 SARS-COV-2 Immunization (1 - season) 2025 Pneumococcal Immunization Combined Discontinued 2019 DTaP/Tdap/Td [...] patient's age to complete this topic Insurance [facility] MEDICARE Care Teams Shook Splicer Relationship Specialty Start Date End Date Provider, None [place] PCP - General 01/24/21
--- OUTSIDE RECORDS SUMMARY | 2025-07-13 09:42 | XMS_ITS | Encounter Summary ---
Author Organization [facility] Address 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
--- OUTSIDE RECORDS SUMMARY | 2025-07-13 09:42 | XMS_ITS | Clinical Summary ---
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 Gender Identity Not on file Sexual [...] Pneumococcal vaccine 65+ (2 of 2 - PPSV23, PCV20, or PCV21) 05/03/2020 03/08/2020 Abdominal Aortic Aneurysm (AAA) Screen 01/28/2021 Well Visit 65+ 01/28/2021 Fall Risk Assessment 11/10/2024 11/11/2023 Influenza Vaccine (#1) 2025 DTaP/Tdap/Td Vaccine (2 - Td or Tdap) 04/07/2031 Medical Devices Implanted Type Area Cloth Shrinking Supervisor Device Identifier Shelf Expiration Date Model / Serial / Lot [employer] [place] 58mm Sector Hip Shell Acetabular Gription Sterile Latex Free [id number] - [id number] Implanted:Qty: 1 on 11/11/2023 by Jose Carlos Saldana MD at [facility] Left: Hip [employer] 09/11/2033 [id number] / / [id number] [employer] [place] 58mm 36mm Hip Neutral Liner Acetabular Altrx Sterile Latex Free [id number] - [id number] Implanted:Qty: 1 on 11/11/2023 by Jose Carlos Saldana MD at [facility] Left: Hip [employer] 09/11/2028 [id number] / / [id number] [employer] Actis Collar Hip 9 High Offset Stem Femoral [id number] - [id number] Implanted:Qty: 1 on 11/11/2023 by Jose Carlos Saldana MD at [facility] Left: Hip [employer] 08/11/2033 [id number] / / [id number] [employer] Articul/Shashi 36mm Cementless Hip +8.5mm 07/25 Taper Head Femoral Latex Free 1365-36-330 - [id number] Implanted:Qty: 1 on 11/11/2023 by Jose Carlos Saldana MD at [facility] Left: Hip [employer] 08/11/2028 [id number] / / [id number] Insurance MEDICARE [facility] [place] [id number] Advance Directives For more information, please contact: [phone] * Full Code (Latest Code Status on File) Date Activated Date Inactivated Comments 11/11/2023 11:04 AM 11/11/2023 6:25 PM Care Teams Explosive Operator Grenade Relationship Specialty Start Date End Date oKbi Huntley DO [address] [place] [address] PCP - General Family Medicine 07/09/23 Jose Carlos Saldana MD [address] [place] [address] [address] [place] [address] Surgeon Orthopedic Surgery 11/11/23
[2025-07-13 09:56] LABS: Alanine Aminotransferase 28 U/L (6-50); Albumin Level 4.6 g/dL (3.5-5.1); Alkaline Phosphatase 97 U/L (38-126); Anion Gap 10 mmol/L (4-12); Aspartate Amino Transferase 31 U/L (17-59); Bilirubin,Total 0.5 mg/dL (0.2-1.3); Blood Urea Nitrogen 22 mg/dL (9-20); Calcium 10.2 mg/dL (8.4-10.2); Carbon Dioxide 33 mmol/L (22-30); Chloride 98 mmol/L (98-107); Cholesterol 169 mg/dL (0-200); Estimated Glomerular Filt Rate 45; Glucose 102 mg/dL (65-110); HDL Direct 92 mg/dL; Osmolality Calculated 295 mOsm/kg (285-295); Potassium 4.4 mmol/L (3.4-5.0); Sodium 141 mmol/L (137-145); Total Protein 7.2 g/dL (6.3-8.2); Triglycerides 82 mg/dL (<150)
[2025-07-13 09:59] LABS: Hemoglobin A1C 5.6 % (<5.7)
[2025-07-13 10:25] LABS: Prostate Specific Antigen 1.1 ng/mL (< OR = 4.0)
[2025-07-13 13:52] LABS: Hematocrit 46.2 % (37.0-46.0); Hemoglobin 15.1 g/dL (12.4-15.3); Immature Granulocyte Percent A 0.3 % (0.0-0.0); Lymphocytes Absolute Auto 1.45 K/mm3 (1.10-4.50); Mean Corpuscular HGB Conc 32.7 g/dL (32-36); Mean Corpuscular Hemoglobin 31.1 pg (27.0-31.0); Mean Corpuscular Volume 95.1 fL (78.0-102.0); Nucleated Red Blood Cells Absolute Auto 0.00 K/mm3 (0.00-0.00); Nucleated Red Blood Cells Perc 0.0 % (0-0.0); Platelet Count Result 332 K/mm3 (150-420); Red Blood Count 4.86 M/mm3 (4.70-6.10); White Blood Count 7.7 K/mm3 (4.8-10.8)
== END 2025-07-13 09:11 | disposition home or self-care (01) ==
PROVIDERS: PCP Family Medicine; Visit Provider Nurse Practitioner Family
DX: Z13.6 Encounter for screening for cardiovascular disorders (principal); E78.5 Hyperlipidemia, unspecified; Z79.899 Other long term (current) drug therapy; E55.9 Vitamin D deficiency, unspecified; I10 Essential (primary) hypertension; Z12.5 Encounter for screening for malignant neoplasm of prostate; Z13.1 Encounter for screening for diabetes mellitus
CPT/HCPCS: 36415; 80053; 80061; 82306; 83036; 84153; 85025; G0103

== ENCOUNTER 2025-07-30 09:13 | Outpatient (CLI) | payer MEDICARE, OTHER, SELFPAY ==
--- OUTSIDE RECORDS SUMMARY | 2025-07-30 09:29 | XMS_ITS | Clinical Summary ---
Author Organization [facility] Address [address] [place] [address] Phone Care Team Providers Care Sewing Pattern Layout Technician Name Role Phone Provider, None Primary Care [...] complete this topic Human Papillomavirus (HPV) Immunization (No Doses Required) Completed Meningococcal Immunization (ACWY) Aged Out No longer eligible based on patient's age to complete this topic Rotavirus Immunization Aged Out No lo nger eligible based on patient's age to complete this topic Insurance [facility] MEDICARE Care Teams Sewing Pattern Layout Technician Relationship Specialty Start Date End Date Provider, None NANDINI PCP - General 01/24/21
--- OUTSIDE RECORDS SUMMARY | 2025-07-30 09:29 | XMS_ITS | Encounter Summary ---
Author Organization [facility] Address 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
--- OUTSIDE RECORDS SUMMARY | 2025-07-30 09:29 | XMS_ITS | Clinical Summary ---
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 Gender Identity Not on file Sexual [...] Tdap) 04/07/2031 Medical Devices Implanted Type Area Weight Shifter Device Identifier Shelf Expiration Date Model / Serial / Lot [employer] [place] 58mm Sector Hip Shell Acetabular Gription Sterile Latex Free [id number] - [id number] Implanted:Qty: 1 on 11/11/2023 by Jose Carlos Saldana MD at [facility] Left: Hip [employer] 09/11/2033 [id number] / / [id number] [employer] [place] 58mm 36mm Hip Neutral Liner Acetabular Altrx Sterile Latex Free [id number] - [id number] Implanted:Qty: 1 on 11/11/2023 by Jose Carlos Saldana MD at [facility] Left: Hip [employer] 09/11/2028 [id number] / / [id number] [employer] Actis Collar Hip 9 High Offset Stem Femoral [id number] - [id number] Implanted:Qty: 1 on 11/11/2023 by Jose Carlos Saldana MD at [facility] Left: Hip [employer] 08/11/2033 [id number] / / [id number] [employer] Articul/Shashi 36mm Cementless Hip +8.5mm 07/25 Taper Head Femoral Latex Free 1365-36-330 - [id number] Implanted:Qty: 1 on 11/11/2023 by Jose Carlos Saldana MD at [facility] Left: Hip [employer] 08/11/2028 [id number] / / [id number] Insurance MEDICARE [facility] [place] [id number] Advance Directives For more information, please contact: [phone] * Full Code (Latest Code Status on File) Date Activated Date Inactivated Comments 11/11/2023 11:04 AM 11/11/2023 6:25 PM Care Teams Cognos Relationship Specialty Start Date End Date Kobi Huntley DO [address] [place] [address] PCP - General Family Medicine 07/09/23 Jose Carlos Saldana MD [address] [place] [address] [address] [place] [address] Surgeon Orthopedic Surgery 11/11/23
--- OUTSIDE RECORDS SUMMARY | 2025-07-30 09:29 | XMS_ITS | Clinical Summary ---
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
[2025-07-30 09:47] LABS: Hematocrit 41.3 % (37.0-46.0); Hemoglobin 13.7 g/dL (12.4-15.3); Immature Granulocyte Percent A 0.3 % (0.0-0.0); Lymphocytes Absolute Auto 0.94 K/mm3 (1.10-4.50); Mean Corpuscular HGB Conc 33.2 g/dL (32-36); Mean Corpuscular Hemoglobin 31.3 pg (27.0-31.0); Mean Corpuscular Volume 94.3 fL (78.0-102.0); Nucleated Red Blood Cells Absolute Auto 0.00 K/mm3 (0.00-0.00); Nucleated Red Blood Cells Perc 0.0 % (0-0.0); Platelet Count Result 242 K/mm3 (150-420); Red Blood Count 4.38 M/mm3 (4.70-6.10); White Blood Count 6.1 K/mm3 (4.8-10.8)
[2025-07-30 10:19] LABS: Alanine Aminotransferase 21 U/L (6-50); Albumin Level 4.4 g/dL (3.5-5.1); Alkaline Phosphatase 85 U/L (38-126); Anion Gap 10 mmol/L (4-12); Aspartate Amino Transferase 26 U/L (17-59); Bilirubin,Total 0.5 mg/dL (0.2-1.3); Blood Urea Nitrogen 18 mg/dL (9-20); Calcium 9.4 mg/dL (8.4-10.2); Carbon Dioxide 26 mmol/L (22-30); Chloride 104 mmol/L (98-107); Estimated Glomerular Filt Rate 51; Glucose 84 mg/dL (65-110); Osmolality Calculated 290 mOsm/kg (285-295); Potassium 4.6 mmol/L (3.4-5.0); Sodium 140 mmol/L (137-145); Total Protein 6.9 g/dL (6.3-8.2)
[2025-07-30 10:42] LABS: Add Urine Microscopic? NO; Appearance Urine Clear (Clear); Glucose Urine UA Negative (Negative); Leukocyte Esterase Ur Negative LEU/UL (Negative); Nitrate Urine Negative (Negative); Specific Grav Ur 1.010 (1.010-1.020)
== END 2025-07-30 09:14 | disposition home or self-care (01) ==
PROVIDERS: PCP Nurse Practitioner Family; Visit Provider Nurse Practitioner Family
DX: N17.9 Acute kidney failure, unspecified (principal); I10 Essential (primary) hypertension
CPT/HCPCS: 36415; 80053; 81003; 85025